=== PATIENT | male | born 1940 | race Caucasian/White ===

== ENCOUNTER → 2018-05-13 12:16 | Outpatient (CLI) | payer MEDICARE, SELFPAY ==
--- NOTE | 2018-05-13 12:30 | RAD_ITS ---
STUDY: X-RAY - ABDOMEN/PELVIS REASON FOR EXAM: Male, 77 years old. Diarrhea TECHNIQUE: AP supine and upright views of the abdomen and pelvis. COMPARISON: None. FINDINGS: Normal visualized lung bases. There is an unremarkable bowel gas pattern. There is no demonstrated free abdominal air. The visualized liver, spleen and kidneys are grossly normal in size and morphology. Normal soft tissue structures. Mild degenerative changes are seen within the spine. RAD/Abd Inc Decub and/or Erect IMPRESSION: Normal x-ray examination of the abdomen and pelvis. Electronically Signed: Gunnar Martinez DO at 12:30 EDT Tel , Service support ,
[2018-05-13 13:16] LABS: Absolute Lymphocyte Count 1.37 X10^3/ul (0.83-4.51); Absolute Neutrophil Count 2.9 X10^3/uL (2.0-7.7); Basophil# 0.08 X10^3/uL; Basophil% 1.6 % (0-1); Eosinophil# 0.25 X10^3/uL; Eosinophils% 4.9 % (0-5); Hematocrit 49.7 % (40-54); Hemoglobin 16.5 g/dl (13.0-16.5); Lymphocyte # 1.37 X10^3/ul (4.0); Mean Corp Hgb Conc 33.2 g/gl (32-36); Mean Corpuscular Hgb 31.3 pg (27.0-32.0); Mean Corpuscular Volume 94.1 fL (80-94); Mean Platelet Vol. 9.8 fl (6.2-12.0); Monocyte# 0.51 X10^3/uL; Neutrophil # 2.86 X10^3/uL (2.7-7.7); Neutrophil % 56.3 % (47-70); Platelet Count 201 K/mm3 (150-450); RBC Distribution Width CV 12.5 % (11.6-14.6); RBC Distribution Width SD 43.2 fl (35.1-43.9); Red Blood Count 5.28 M/mm3 (4.6-6.2); White Blood Count 5.1 K/mm3 (4.4-11.0)
[2018-05-13 13:18] LABS: POSITIVE COUNT NO; POSITIVE DIFFERENTIAL NO; POSITIVE MORPHOLOGY NO
[2018-05-13 13:40] LABS: Vitamin D,25 Hydroxy 26.4 ng/mL (29.95-100.01)
[2018-05-13 13:46] LABS: ALB/GLOB Ratio 0.9 RATIO (0.9-2.4); AST(SGOT) 50 U/L (15-37); Alanine Aminotransfer ALT/SGPT 20 U/L (16-61); Albumin, Serum 4.1 g/dL (3.2-5.0); Alkaline Phosphatase 94 U/L (45-117); Anion Gap 6 (5-15); BUN 12 mg/dL (7-18); BUN/Creat Ratio 10.8 RATIO (10-20); Calcium,Total 9.5 mg/dL (8.5-10.1); Chloride 104 mmol/L (98-107); Creatinine, Serum 1.11 mg/dL (0.70-1.30); EST Glomerular Filtration Rate 68 mL/min (>60); Est Glom Filt Rate - Afr Amer 82 mL/min (>60); Globulin 4.6 g/dL (2.2-4.2); Glucose 97 mg/dL (74-106); Potassium 4.3 mmol/L (3.5-5.1); Protein, Total 8.7 g/dL (6.4-8.2); Sodium Level 138 mmol/L (136-145); Thyroid Stim Hormone (TSH) 3.74 uIU/mL (0.358-3.74)
== END ==
PROVIDERS: Visit Provider Family Medicine Geriatric Medicine
DX: Z00.00 Encounter for general adult medical examination without abnormal findings (principal); E55.9 Vitamin D deficiency, unspecified; R19.7 Diarrhea, unspecified
CPT/HCPCS: 36415; 74019; 80053; 82306; 84443; 85025

== ENCOUNTER → 2018-05-14 08:46 | Outpatient (CLI) | payer MEDICARE, SELFPAY | PROVIDERS: Family Provider Family Medicine Geriatric Medicine; PCP Family Medicine Geriatric Medicine; Visit Provider Family Medicine Geriatric Medicine | DX: Z00.00 Encounter for general adult medical examination without abnormal findings (principal); R19.7 Diarrhea, unspecified; E55.9 Vitamin D deficiency, unspecified | CPT/HCPCS: 82274; 83630; 87177; 87209; 87493; 87506 ==

== ENCOUNTER → 2018-06-22 11:22 | Outpatient (CLI) | payer MEDICARE, SELFPAY ==
--- NOTE | 2018-06-22 11:54 | RAD_ITS ---
STUDY: X-RAY CHEST REASON FOR EXAM: Male, 78 years old. Shortness of breath TECHNIQUE: PA and lateral views of the chest. COMPARISON: None. FINDINGS: There is hyperinflation of the lungs consistent with chronic obstructive lung disease (COPD). Lungs are clear. There is no demonstrated pleural abnormality. Normal size heart. Normal mediastinum and aparna. Normal visualized pulmonary arteries. Normal visualized aortic arch and descending thoracic aorta. There are diffuse degenerative changes of the visualized thoracic spine. There is degenerative osteoarthritis of the bilateral shoulders. There is no demonstrated abnormality of the visualized soft tissue structures of the upper abdomen. RAD/Chest PA and Lateral IMPRESSION: COPD without acute findings. Electronically Signed: Hiren Dixon DO at 12:35 EDT Tel , Service support ,
[2018-06-22 12:45] LABS: Absolute Lymphocyte Count 1.53 X10^3/ul (0.83-4.51); Absolute Neutrophil Count 2.4 X10^3/uL (2.0-7.7); Basophil# 0.07 X10^3/uL; Basophil% 1.5 % (0-1); Eosinophil# 0.29 X10^3/uL; Eosinophils% 6.1 % (0-5); Hematocrit 47.1 % (40-54); Lymphocyte # 1.53 X10^3/ul (4.0); Lymphocyte % 32.1 % (19-41); Mean Corpuscular Hgb 31.5 pg (27.0-32.0); Mean Corpuscular Volume 92.7 fL (80-94); Mean Platelet Vol. 10.2 fl (6.2-12.0); Monocyte# 0.46 X10^3/uL; Monocyte% 9.7 % (0-10); Neutrophil % 50.4 % (47-70); Platelet Count 200 K/mm3 (150-450); RBC Distribution Width CV 12.3 % (11.6-14.6); RBC Distribution Width SD 41.2 fl (35.1-43.9); Red Blood Count 5.08 M/mm3 (4.6-6.2); White Blood Count 4.8 K/mm3 (4.4-11.0)
[2018-06-22 12:50] LABS: POSITIVE COUNT NO; POSITIVE DIFFERENTIAL NO; POSITIVE MORPHOLOGY NO
[2018-06-22 13:10] LABS: Anion Gap 7 (5-15); BNP,B-Type NATRIURETIC PEPTIDE 8.4 pg/mL (0-100); BUN 12 mg/dL (7-18); BUN/Creat Ratio 11.4 RATIO (10-20); CPK Total, Creatine Kinase 120 U/L (39-308); Calcium,Total 9.3 mg/dL (8.5-10.1); Chloride 103 mmol/L (98-107); Creatinine, Serum 1.05 mg/dL (0.70-1.30); EST Glomerular Filtration Rate 73 mL/min (>60); Est Glom Filt Rate - Afr Amer 88 mL/min (>60); Glucose 88 mg/dL (74-106); Potassium 3.6 mmol/L (3.5-5.1); Sodium Level 139 mmol/L (136-145)
[2018-06-22 13:25] LABS: D-Dimer Quantitative (DVT/PE) 0.73 FEU/ug/m (0.27-0.49)
[2018-06-23 13:53] LABS: Myoglobin, Serum 43 ng/mL (28-72)
== END ==
PROVIDERS: Family Provider Family Medicine Geriatric Medicine; PCP Family Medicine Geriatric Medicine; Visit Provider Family Medicine Geriatric Medicine
DX: R06.02 Shortness of breath (principal)
CPT/HCPCS: 36415; 71046; 80048; 82550; 83874; 83880; 84484; 85025; 85379

== ENCOUNTER → 2018-06-22 15:00 | Outpatient (CLI) | payer MEDICARE, SELFPAY ==
--- NOTE | 2018-06-22 15:08 | CT_ITS ---
STUDY: CTA CHEST REASON FOR EXAM: Male, 78 years old. Shortness of breath. RADIATION DOSAGE (If Supplied By Facility): CTDIvol = ( 14.54 ) mGy, DLP = ( 524.53 ) mGycm TECHNIQUE: The examination was performed with the intravenous administration of 100 ml of Isovue 300 contrast material. Post-processing of the angiographic images was performed, with multiplanar reformation and 3D reconstruction. Individualized dose optimization techniques were used for this CT. COMPARISON: Comparison is made with prior examination done earlier in the day. FINDINGS: Normal enhancement of the main pulmonary artery and right and left pulmonary arteries. Normal enhancement of the bilateral peripheral pulmonary arteries. There is no demonstrated pulmonary embolism. Normal thoracic aorta and visualized great vessels. There is no demonstrated aortic dissection. Normal heart and pericardium. Normal mediastinum. Normal hilar regions. Normal visualized trachea and bronchi. The lungs are well expanded. There are increased interstitial markings at the lung bases. This may represent either scarring and/or atelectasis. There is a 1.6 cm x 1.3 cm pleural-based nodular density in the right lower lobe as seen on axial image #66. This may represent a focal area of scarring. Follow-up is recommended. Normal pleura. Normal chest wall structures. There are degenerative changes of thoracic spine. Small gallstone in the gallbladder lumen. There are several hypodense nodules in the liver. These may represent small cysts. Correlation with ultrasound is recommended. CT/CTA Chest W/WO Contrast IMPRESSION: There is no evidence of pulmonary embolism. Increased markings at the lung bases suggestive of a atelectasis and/or scarring. Electronically Signed: Greg Medrano MD at 15:55 EDT Tel [phone], Service support ,
== END ==
PROVIDERS: Family Provider Family Medicine Geriatric Medicine; PCP Family Medicine Geriatric Medicine; Visit Provider Family Medicine Geriatric Medicine
DX: R06.02 Shortness of breath (principal); R74.8 Abnormal levels of other serum enzymes
CPT/HCPCS: 36415; 71046; 71275; 80048; 82550; 83874; 83880; 84484; 85025; 85379; Q9967

== ENCOUNTER → 2018-06-25 08:27 | Outpatient (CLI) | payer MEDICARE, SELFPAY ==
--- NOTE | 2018-06-25 08:33 | US_ITS ---
STUDY: ABDOMINAL ULTRASOUND - RIGHT UPPER QUADRANT REASON FOR VISIT: Male, 78 years old. Abdominal pain. Liver cyst. TECHNIQUE: Ultrasound evaluation of the right upper quadrant was performed with real-time and static sprague-scale imaging. TECHNICAL QUALITY: Examination limited by bowel gas. COMPARISON: CTA of the chest, June 22, 2018. FINDINGS: Liver: The liver measures 15.9 cm. There is normal echogenicity of the liver. The bile ducts are within normal limits. There is hepatic color flow. The direction of portal flow is hepatopetal. In the right lobe there is a 1.8 cm cyst. This correlates with the cyst seen in the lower right anterior lobe on CT. The other cysts are incompletely visualized. They're thought to be seen on image 30 of series 1. Gallbladder: Normal distended gallbladder. The gallbladder wall measures 3 mm. There is a negative sonographic Cervantes's sign. There is no pericholecystic fluid. The gallstones seen on CT is not appreciated sonographically and mid lung may in the gallbladder neck. There is a 5 mm polyp seen along the gallbladder wall. Common Bile Duct (C.B.D.): The common bile duct measures 6 mm. Pancreas: There is limited visualization of the pancreas. Portions of the neck and proximal tail are visualized. There is normal echogenicity of the pancreas. There is no demonstrated pancreatic mass or cyst. Right Kidney: Normal size of the right kidney. The right kidney measures 10.8 cm. Normal renal cortex. The right cortex measures 1.2 cm. There is no demonstrated renal mass or cyst. There is no right hydronephrosis. US/Abdomen Limited IMPRESSION: 1. Multiple hepatic cysts. These correlate with the larger cyst seen on CT. 2. Poor visualization of the gallstones seen on CT. There is a small gallbladder polyp noted. 3. Limited visualization of pancreas. Electronically Signed: Jesus Fontaine DO at 8:33 EDT Tel [phone], Service support ,
== END ==
PROVIDERS: Family Provider Family Medicine Geriatric Medicine; PCP Family Medicine Geriatric Medicine; Visit Provider Family Medicine Geriatric Medicine
DX: K76.89 Other specified diseases of liver (principal); K80.20 Calculus of gallbladder without cholecystitis without obstruction; R10.9 Unspecified abdominal pain
CPT/HCPCS: 76705

== ENCOUNTER → 2018-08-04 11:57 | Outpatient (CLI) | payer MEDICARE, SELFPAY | PROVIDERS: Family Provider Family Medicine Geriatric Medicine; PCP Family Medicine Geriatric Medicine; Referring Provider Family Medicine Geriatric Medicine; Visit Provider Family Medicine Geriatric Medicine | DX: R68.83 Chills (without fever) (principal); E86.0 Dehydration | CPT/HCPCS: 96360; 96361; 87633; J7030; A4216 ==

== ENCOUNTER → 2018-08-04 12:17 | Outpatient (CLI) | payer MEDICARE, SELFPAY ==
[2018-08-04 12:39] VITALS: BP 140/89; PULSE 69; RESP 16; TEMP 36.3; O2SAT 96; BMI 27.0
[2018-08-04] MEDS: 0.9% Normal Saline 1,000 ML 999 ML IV ×2 (12:56→14:00)
[2018-08-04 15:06] VITALS: BP 151/74; PULSE 72
== END ==
PROVIDERS: Family Provider Family Medicine Geriatric Medicine; PCP Family Medicine Geriatric Medicine; Visit Provider Family Medicine Geriatric Medicine
DX: E86.0 Dehydration (principal)
CPT/HCPCS: 96360; 96361; J7030; A4216

== ENCOUNTER 2018-08-08 15:10 | Inpatient (IN) | payer MEDICARE, SELFPAY ==
[2018-08-08 15:11] VITALS: BP 134/72; PULSE 71; RESP 18; TEMP 36.6; O2SAT 98; BMI 28.1
--- NOTE | 2018-08-08 16:15 | CT_ITS ---
STUDY: CT BRAIN WITHOUT CONTRAST REASON FOR EXAM: Male, 78 years old. Weakness. History of Parkinson's. RADIATION DOSAGE (If Supplied By Facility): CTDIvol = ( 44.99 ) mGy, DLP = ( 812.98 ) mGycm TECHNIQUE: Transaxial CT imaging of the brain was performed without administration of intravenous contrast material. Individualized dose optimization techniques were used for this CT. COMPARISON: 05/24/2012. FINDINGS: Normal soft tissue structures. Normal calvarium. There is mild cerebral atrophy with widening of the extra-axial spaces and ventricular dilatation. There are areas of decreased attenuation within the white matter tracts of the supratentorial brain, consistent with microvascular disease changes. Normal basal ganglia and thalami. Normal brainstem. Normal cerebellum. There is no intracranial hemorrhage. There are no findings of an acute ischemic infarction. Normal visualized paranasal sinuses. CT/Brain/Head without Contrast IMPRESSION: 1. No acute process. 2. Mild microvascular ischemic changes. Atrophy. Electronically Signed: Jo Pompa MD at 17:22 EST Tel , Service support ,
--- NOTE | 2018-08-08 16:16 | EKG12_ITS ---
Test Reason : GEN ILLNESS Blood Pressure : / mmHG Vent. Rate : 084 BPM Atrial Rate : 084 BPM P-R Int : 230 ms QRS Dur : 144 ms QT Int : 414 ms P-R-T Axes : 042 041 -05 degrees QTc Int : 489 ms Sinus rhythm with sinus arrhythmia with 1st degree A-V block Right bundle branch block Abnormal ECG Confirmed by CHEIKH WHITLOCK, ESSENCE ([id number]), medical transcription editor GARDENIA COTTON ([id number]) on 08/11/2018 3:36:56 PM Referred By: TAMELA Confirmed By:ESSENCE SALAMANCA MD
--- NOTE | 2018-08-08 16:42 | ED.RN ---
BRUISING TO RIGHT UPPER BODY LATERAL AND LARGE BRUISE TO BACK, PT REPORTED I FALL BACKWARDS AND GRAB MY HEAD, MY BUTT IS BRUISED TOO
[2018-08-08 16:43] VITALS: BP 135/72; BP 137/68; PULSE 79; PULSE 82
[2018-08-08 16:47] LABS: Absolute Lymphocyte Count 0.82 X10^3/ul (0.83-4.51); Absolute Neutrophil Count 2.8 X10^3/uL (2.0-7.7); Basophil# 0.05 X10^3/uL; Basophil% 1.2 % (0-1); Eosinophil# 0.09 X10^3/uL; Eosinophils% 2.2 % (0-5); Hematocrit 40.2 % (40-54); Hemoglobin 13.5 g/dl (13.0-16.5); Lymphocyte # 0.82 X10^3/ul (4.0); Lymphocyte % 19.9 % (19-41); Mean Corp Hgb Conc 33.6 g/gl (32-36); Mean Corpuscular Volume 92.2 fL (80-94); Mean Platelet Vol. 8.8 fl (6.2-12.0); Monocyte# 0.37 X10^3/uL; Neutrophil # 2.78 X10^3/uL (2.7-7.7); Neutrophil % 67.2 % (47-70); Platelet Count 296 K/mm3 (150-450); RBC Distribution Width CV 12.8 % (11.6-14.6); RBC Distribution Width SD 42.1 fl (35.1-43.9); Red Blood Count 4.36 M/mm3 (4.6-6.2); White Blood Count 4.1 K/mm3 (4.4-11.0)
[2018-08-08 16:58] LABS: POSITIVE COUNT NO; POSITIVE DIFFERENTIAL NO; POSITIVE MORPHOLOGY NO
--- NOTE | 2018-08-08 17:05 | RAD_ITS ---
STUDY: X-RAY CHEST REASON FOR EXAM: Male, 78 years old. Weakness. TECHNIQUE: PA and lateral views. COMPARISON: 06/22/2018. FINDINGS: The lungs are clear and expanded. There is no demonstrated pleural abnormality. Normal size heart. Normal mediastinum and aparna. Normal visualized pulmonary arteries. Normal visualized aortic arch and descending thoracic aorta. There are mild degenerative changes of the thoracic spine. Normal visualized ribs, clavicles, and shoulders. There is no demonstrated abnormality of the visualized soft tissue structures of the upper abdomen. RAD/Chest PA and Lateral IMPRESSION: No acute process. Electronically Signed: Jo Pompa MD at 17:26 EST Tel , Service support ,
[2018-08-08 17:08] LABS: ALB/GLOB Ratio 0.9 RATIO (0.9-2.4); AST(SGOT) 196 U/L (15-37); Alanine Aminotransfer ALT/SGPT 47 U/L (16-61); Albumin, Serum 3.2 g/dL (3.2-5.0); Alkaline Phosphatase 326 U/L (45-117); Anion Gap 9 (5-15); BUN 20 mg/dL (7-18); BUN/Creat Ratio 20.2 RATIO (10-20); Calcium,Total 8.2 mg/dL (8.5-10.1); Chloride 100 mmol/L (98-107); Creatinine, Serum 0.99 mg/dL (0.70-1.30); EST Glomerular Filtration Rate 78 mL/min (>60); Est Glom Filt Rate - Afr Amer 94 mL/min (>60); Estimated Creatinine Clearance 57.49 ml/min; Globulin 3.5 g/dL (2.2-4.2); Glucose 151 mg/dL (74-106); Potassium 3.6 mmol/L (3.5-5.1); Protein, Total 6.7 g/dL (6.4-8.2); Sodium Level 136 mmol/L (136-145)
[2018-08-08 17:31] VITALS: BP 142/84; PULSE 93; RESP 16; O2SAT 96
[2018-08-08 17:34] LABS: Bacteria 0 SEEN /hpf (None Seen); Mucous, Urine 0 SEEN /hpf (<or=2+); Red Blood Cells-Urine 0 SEEN /hpf (0-5); Squamous Epithelial Cells - UA 0 SEEN /hpf (0-5); White Blood Cells 0 SEEN /hpf (0-5)
[2018-08-08 18:04] LABS: Color, Urine Yellow (Yellow); Glucose, Dipstick Normal (Normal); Ketone-Dipstick 5 mg/dl (Negative); Leukocyte Esterase-Dipstick Negative /ul (Negative); Nitrite-Dipstick Negative (Negative); Occult Blood-Urine Negative /ul (Negative); Protein-Dipstick Negative (Negative); Specific Gravity, Urine 1.015 (1.002-1.030); Urine Bilirubin Dipstick Negative (Negative); Urine Clarity Clear (Clear); Urine Urobilinogen Normal (Normal)
--- NOTE | 2018-08-08 18:40 | RAD_ITS ---
STUDY: X-RAY - THORACIC SPINE REASON FOR EXAM: Male, 78 years old. Pain. TECHNIQUE: 3 view(s) of the thoracic spine were obtained. COMPARISON: None. FINDINGS: Normal kyphosis of the thoracic spine. There is no substantial scoliosis. Normal thoracic vertebrae and endplates. Normal disc space heights. There is mild thoracic spondylosis. The soft tissue structures are unremarkable. RAD/Thoracic Spine 3 Views IMPRESSION: 1. No acute process. Electronically Signed: Jo Pompa MD at 19:18 EST Tel , Service support ,
--- NOTE | 2018-08-08 18:40 | RAD_ITS ---
STUDY: X-RAY - LUMBAR SPINE REASON FOR EXAM: Male, 78 years old. Pain. TECHNIQUE: 3 view(s) of the lumbar spine were obtained. COMPARISON: None FINDINGS: There are 5 lumbar type vertebral bodies. Normal lumbar lordosis. There is no substantial scoliosis. There is a normal alignment of the vertebrae. Normal vertebral bodies and endplates. There is disc space narrowing at the L5-S1 level. Disc spaces are otherwise well-maintained. The soft tissue structures are unremarkable. RAD/Lumbar Spine 2 or 3 Views IMPRESSION: 1. No evidence of trauma. 2. Mild degenerative disc changes. Electronically Signed: Jo Pompa MD at 19:22 EST Tel , Service support ,
[2018-08-08] MEDS: Morphine 2 MG/ML Syringe IV (18:56)
[2018-08-08 19:14] VITALS: BP 130/64; PULSE 91; RESP 16; O2SAT 96
[2018-08-08 19:22] VITALS: BMI 26.2
--- NOTE | 2018-08-08 19:28 | HP.PCM_ITS ---
Problem List (1) Frequent falls Status: Acute (2) Elevated liver enzymes Status: Acute (3) Hyperglycemia Status: Acute (4) Parkinsons disease Status: Chronic History of Present Illness Date of Admission: 08/08/18 Chief Complaint: Generalized pain, recently increased frequent falls. The patient is a 78 y/o M w/ PMHx: Parkinson's disease who presents to the [facility] ED on 08/08/18 per recommendation of his PCP secondary to increased generalized weakness, difficulty ambulating secondary to BL knee as well as back discomfort secondary to his ongoing falls w/ notable diffuse ecchymoses w/ visit to his PCP most recently this past where he was administered IVFs in the office for concern of mild dehydration as well as cefdinir for possible sinusitis. Patient currently notes he has had only mild congestion with no facial tenderness, fevers or chills. He notes that he has had difficulty stopping his gait when he starts shuffling as well as having difficulty getting up resulting in his frequent falls. Work-up in the ED included T 98, heart rate 91, BP 130/64, respiratory rate 18, 98% on room air, CBC w/ WBC 4.1, Hgb 13.5, Plts 296, CMP w/ BUN/Cr 20/0.99, glucose 151, AST/ALT 196/47, Alk phos 326, trop < 0.015, UA not marked appearing, CT brain with no acute process with mild microvascular ischemic changes and atrophy, chest x-ray with no acute process, plain film thoracic spine with no acute process, plain film lumbar spine with chronic degenerative disc disease with no acute findings. In the ED patient administered morphine. Past Medical History Past Medical History (Chronic Problems): Chronic Problems Parkinsons disease (Chronic) Allergies No Known Allergies Allergy (Verified 08/08/18 15:13) Home Medications: Ambulatory Orders Medication Instructions Recorded Carbidopa/Levodopa 25/100 [Sinemet 2 tab PO TID 08/08/18 25/100] Cefdinir 300 mg PO BID 08/08/18 Menthol [Biofreeze] 1 applicatio TP PRN PRN 08/08/18 Surgical History: - - Left rotator cuff repair. Psychiatric History: No pertinent psych hx Lives: Spouse/ Significant Other Smoking Status: Never smoker Tobacco Use: Non-smoker Alcohol: None Drugs: None - *Family History Maternal History Items: - - Mother passed in her 90s, healthy without history of HD, DM or CA. Paternal History Items: Heart Disease - Father w/ history of HD/ME in his 60s. Review of Systems Constitutional: Reports: Weakness, Fatigue. Denies: Chills, Fever, Weight Change HEENT: Denies: Head Aches, Sinus Congestion, Sinus Drainage Cardiovascular: Denies: Chest Pain, Palpitations Respiratory: Denies: Cough, Shortness of breath at rest, Sputum production Gastrointestinal: Denies: Abdominal Pain, Nausea, Vomiting Genitourinary: Denies: Dysuria Musculoskeletal: Reports: Back Pain, Joint Pain, Joint Tenderness, Muscle pain Skin: Reports: Skin Changes. Denies: Rash, Wounds Neurological: Reports: Balance problems. Denies: Focal weakness, Numbness, Tingling Psychiatric: Denies: Anxiety, Depression, Homicidal Ideations, Suicidal Ideations Hematologic/ Lymphatic: Denies: Easy Bruising, Easy Bleeding VTE Information - Inpt Only VTE Present on Admission: No VTE Mechan Device Prophylaxis: SCD's VTE Pharm Prophylaxis ordered?: Yes Patient Problems: Active and Suspected Problems Frequent falls (Acute) Elevated liver enzymes (Acute) Hyperglycemia (Acute) Subjective: laying in the ED bed, NAD, notes body sore from falling so frequently. Objective: Physical Examination: General: awake, alert, oriented x 3 and cooperative, seated upright in the ED bed in no apparent distress. Skin: normal color, turgor, no icterus, cyanosis except various staged ecchymoses to the extremities and back as well as buttock regions. HEENT: AT/NC, EOMI, PERRLA, MMM, no carotid bruits or JVD noted. Lungs: CTA bilaterally, moderate effort, mild decrease BL bases, no rales, ronchi or wheezing. Heart: Regular rate and rhythm; no gallop, rub audible. Abdomen: soft, overweight, NTTP, ND, normal BS, no HSM. Extremities: no cyanosis, clubbing, or edema. Neurological: patient awake, alert, oriented x 3; cognitive function intact; pupils equally reactive to light and accomodation; cranial nerves II-XII grossly normal, moving all 4 extremities, no focal deficits, strength difficult to assess secondary to joint discomfort w/ recent increased falls but no focal deficits noted, strength moderately globally decreased, sensation intact. Psychiatric: affect appears normal, no acute evidence of depressive or anxiety feelings. - Physical Exam Vital Signs Temp Pulse Resp BP Pulse Ox 98 F 91 16 130/64 H 96 08/08/18 15:11 08/08/18 19:14 08/08/18 19:14 08/08/18 19:14 08/08/18 19:14 Oxygen Delivery Method Room Air Weight: 180 lb Body Mass Index (BMI) 28.1 Laboratory Tests Past 24 Hrs 08/08/18 08/08/18 08/08/18 16:10 16:10 17:25 WBC 4.1 L RBC 4.36 L Hgb 13.5 Hct 40.2 MCV 92.2 MCH 31.0 MCHC 33.6 RDW 12.8 RDW Differential 42.1 Plt Count 296 MPV 8.8 Immature Gran % (Auto) 0.500 Neut % (Auto) 67.2 Lymph % (Auto) 19.9 [place] % (Auto) 9.0 Eos % (Auto) 2.2 Baso % (Auto) 1.2 H Absolute Neuts (auto) 2.8 Absolute Lymphs (auto) 0.82 L Total Counted Not Reportable Sodium 136 Potassium 3.6 Chloride 100 Carbon Dioxide 27.0 Anion Gap 9 BUN 20 H Creatinine 0.99 Estim Creat Clear Calc 57.49 Est GFR (MDRD) Af Amer 94 Est GFR (MDRD) Non-Af 78 BUN/Creatinine Ratio 20.2 H Glucose 151 H Calcium 8.2 L Total Bilirubin 0.70 AST 196 H ALT 47 Alkaline Phosphatase 326 H Troponin I < 0.015 Total Protein 6.7 Albumin 3.2 Globulin 3.5 Albumin/Globulin Ratio 0.9 Urine Color Yellow Urine Clarity Clear Urine pH 6.0 Ur Specific [place] 1.015 Urine Protein Negative Urine Glucose (UA) Normal Urine Ketones 5 H Urine Occult Blood Negative Urine Nitrite Negative Urine Bilirubin Negative Urine Urobilinogen Normal Ur Leukocyte Esterase Negative Urine RBC 0 SEEN Urine WBC 0 SEEN Ur Squamous Epith Cells 0 SEEN Urine Bacteria 0 SEEN Urine Mucus 0 SEEN Assessment/Plan All Active Problems Frequent falls (Acute) Elevated liver enzymes (Acute) Hyperglycemia (Acute) The patient is a 78 y/o M w/ PMHx: Parkinson's disease who presents to the [facility] ED on 08/08/18 per recommendation of his PCP secondary to increased generalized weakness, difficulty ambulating secondary to severe generalized pain from falls including BL knee, back and buttock regions x 1 week. (1) Acute Intractable Pain, Back and BL Knees secondary to Recent Frequent Falls w/ Gait Instability: Plain films in the ED w/ no acute findings, degenerative changes but severely debilitating. Will admit to [facility], maintain on fall precautions, frequent positioning, po/IV pain regimen, scheduled toradol x 5 doses, flexeril PRN, anti-emetics, bowel regimen. Will consult PT and OT for evaluation and CM for discharge planning. If not improving may need to consider further imaging of the spine. Will request Neurology assessment as may need his Parkinson's disease medications altered secondary to recently increased falls. (2) Parkinson's Disease: Recently increased frequent falls, possibly leading to #1, will continue home regimen sinemet pending Neurology assessment, but from his descriptions concerns for changes needed to his parkinson's regimen, fall precautions, PT, OT, CM as noted. (3) Hyperglycemia: Admission glucose 151, HgBA1c pending. (4) Abnormal LFTs: Unclear etiology, admission AST/ALT 196/47, Alk phos 326, gently hydrating, repeat CMP in AM. (5) DVT Prophylaxis: SCDs, lovenox. (6) CODE status: FULL code. Daughter is HCPOA, living in [place], traveling to [place] currently, prior [facility] RN per family report. Code Visit OBSV E&M: 20027 Initial observation care L3
[2018-08-08 20:35] VITALS: BP 136/72; PULSE 70; RESP 20; TEMP 36.9; O2SAT 93
[2018-08-08 20:39] VITALS: BMI 27.3
[2018-08-08] MEDS: 0.9% Normal Saline 1,000 ML 100 ML IV (20:47)
[2018-08-08] MEDS: Ketorolac 15 MG/ML Vial IV (20:48)
[2018-08-08 20:53] VITALS: O2SAT 95
[2018-08-08 20:53] LABS: Magnesium 2.2 mg/dL (1.6-2.6)
[2018-08-08] MEDS: Morphine 4 MG/ML Syringe IV (21:51)
--- NOTE | 2018-08-08 23:17 | NURSING ---
PT TOOK GOWN OFF AND GETTING OUT OF BED WITH NO ASST. PT REFUSES TO WEAR SCD. MANAGER TALENT REPOSTION PT IN BED.
--- NOTE | 2018-08-08 23:46 | ED.VISSUMM ---
- ER Visit Summary Date of Service: 08/08/18 Chief Complaint: Weakness History of Present Illness: The patient is a 78 M who states that on he began to have multiple falls. He states he hurts all over particularly his knees. He states that whenever he goes to get up he simply falls particularly backwards. He notes the last was at his doctor's office get started on unknown antibiotic for sinus infection. Reportedly also received some fluids. He states the falls began later that day after going to his doctor's office. Denies any loss of consciousness. Denies any headache. He simply feels very weak and cannot walk. He states that this is a significant change off of his baseline. He is here with his sister. Physical Examination: Afebrile vital signs are stable Gen: Well-nourished well-developed Head: Normocephalic atraumatic Eyes: Perrl EOMI ENT: TMs clear no rhinorrhea moist mucous membranes Neck: Supple no lymphadenopathy no JVD nontender CVS: Regular rate rhythm no murmurs normal S1-S2 Respiratory: No distress clear to auscultation bilaterally chest nontender Abdomen: Soft nontender nondistended normal bowel sounds no masses Back: Bruising of the back and tenderness to palpation in the upper lumbar paraspinal region. Extremity: Nontender no edema Skin: Normal color no rash numerous contusions of extremities Neuro: alert orientated ?3 CN II-XII intact patient has a tremor. He is a 2 person assist up out of bed and falls back into the bed only one person is helping him. Psych: Normal affect normal mood Test Results: Basic labs were negative. Chest x-ray negative. X-rays of the lumbar and thoracic spine were negative for acute fracture. CT of the brain was negative. EKG sinus the right bundle branch block. Emergency Department Course and Treatment: Patient received morphine for pain. Plan is admission to the hospital. Impression: 1. Frequent falls 2. Multiple contusions 3. Parkinson's This note was generated with [employer] dictation software. It may contain incorrect words, spelling, and punctuation that were not noted in review of the chart prior to signing ED Disposition - Plan for ED Patient: Disposition: Acute Care [facility], [place] Chief Complaint: Weakness
--- NOTE | 2018-08-08 23:50 | ED.DCSUM_ITS ---
- ER Visit Summary Date of Service: 08/08/18 Chief Complaint: Weakness History of Present Illness: The patient is a 78 M who states that on he began to have multiple falls. He states he hurts all over particularly his knees. He states that whenever he goes to get up he simply falls particularly b ackwards. He notes the last was at his doctor's office get started on unknown antibiotic for sinus infection. Reportedly also received some fluids. He states the falls began later that day after going to his doctor's office. Denies any loss of consciousness. Denies any headache. He simply feels very weak and cannot walk. He states that this is a significant change off of his baseline. He is here with his sister. Physical Examination: Afebrile vital signs are stable Gen: Well-nourished well-developed Head: Normocephalic atraumatic Eyes: Perrl EOMI ENT: TMs clear no rhinorrhea moist mucous membranes Neck: Supple no lymphadenopathy no JVD nontender CVS: Regular rate rhythm no murmurs normal S1-S2 Respiratory: No distress clear to auscultation bilaterally chest nontender Abdomen: Soft nontender nondistended normal bowel sounds no masses Back: Bruising of the back and tenderness to palpation in the upper lumbar paraspinal region. Extremity: Nontender no edema Skin: Normal color no rash numerous contusions of extremities Neuro: alert orientated ?3 CN II-XII intact patient has a tremor. He is a 2 person assist up out of bed and falls back into the bed only one person is helping him. Psych: Normal affect normal mood Test Results: Basic labs were negative. Chest x-ray negative. X-rays of the lumbar and thoracic spine were negative for acute fracture. CT of the brain was negative. EKG sinus the right bundle branch block. Emergency Department Course and Treatment: Patient received morphine for pain. Plan is admission to the hospital. Impression: 1. Frequent falls 2. Multiple contusions 3. Parkinson's This note was generated with [employer] dictation software. It may contain incorrect words, spelling, and punctuation that were not noted in review of the chart prior to signing ED Disposition - Plan for ED Patient: Disposition: Acute Care Hospital [facility] Chief Complaint: Weakness
[2018-08-09] MEDS: oxyCODONE 5 MG Tablet PO ×2 (02:04→08:12)
[2018-08-09 02:08] VITALS: BP 146/79; PULSE 71; RESP 17; TEMP 36.7; O2SAT 95
--- NOTE | 2018-08-09 03:53 | NURSING ---
Pt setting off bed exit. pt legs hanging off bed. Pt ox1 to name only but reorients quickly. Pt all over the bed and very restless at this time.
--- NOTE | 2018-08-09 05:57 | NURSING ---
pt set bed exit off. pt legs hanging over bed. pt pulled up and repostion in bed. pt said he was going downtown to use bathroom..
[2018-08-09] MEDS: Ketorolac 15 MG/ML Vial IV ×3 (06:00→21:38)
[2018-08-09] MEDS: Carbidopa/Levodopa 25/100 Tablet PO ×3 (06:01→17:48)
[2018-08-09] MEDS: 0.9% Normal Saline 1,000 ML 100 ML IV ×2 (06:02→17:47)
[2018-08-09 07:38] LABS: Absolute Lymphocyte Count 0.76 X10^3/ul (0.83-4.51); Absolute Neutrophil Count 2.3 X10^3/uL (2.0-7.7); Basophil# 0.04 X10^3/uL; Basophil% 1.1 % (0-1); Eosinophil# 0.12 X10^3/uL; Eosinophils% 3.4 % (0-5); Hematocrit 39.8 % (40-54); Hemoglobin 13.1 g/dl (13.0-16.5); Lymphocyte # 0.76 X10^3/ul (4.0); Lymphocyte % 21.3 % (19-41); Mean Corp Hgb Conc 32.9 g/gl (32-36); Mean Corpuscular Hgb 30.3 pg (27.0-32.0); Mean Corpuscular Volume 92.1 fL (80-94); Mean Platelet Vol. 8.7 fl (6.2-12.0); Monocyte# 0.31 X10^3/uL; Monocyte% 8.7 % (0-10); Neutrophil # 2.33 X10^3/uL (2.7-7.7); Neutrophil % 65.2 % (47-70); POSITIVE COUNT NO; POSITIVE DIFFERENTIAL NO; POSITIVE MORPHOLOGY NO; Platelet Count 260 K/mm3 (150-450); RBC Distribution Width CV 12.9 % (11.6-14.6); RBC Distribution Width SD 43.5 fl (35.1-43.9); Red Blood Count 4.32 M/mm3 (4.6-6.2); White Blood Count 3.6 K/mm3 (4.4-11.0)
[2018-08-09 07:54] LABS: AST(SGOT) 167 U/L (15-37); Alanine Aminotransfer ALT/SGPT 60 U/L (16-61); Alkaline Phosphatase 281 U/L (45-117); Anion Gap 9 (5-15); BUN 16 mg/dL (7-18); BUN/Creat Ratio 19.3 RATIO (10-20); Chloride 103 mmol/L (98-107); Creatinine, Serum 0.83 mg/dL (0.70-1.30); EST Glomerular Filtration Rate 95 mL/min (>60); Est Glom Filt Rate - Afr Amer 115 mL/min (>60); Estimated Creatinine Clearance 68.58 ml/min; Globulin 3.1 g/dL (2.2-4.2); Glucose 98 mg/dL (74-106); Potassium 3.9 mmol/L (3.5-5.1); Protein, Total 6.1 g/dL (6.4-8.2); Sodium Level 137 mmol/L (136-145)
[2018-08-09 07:58] VITALS: BP 145/64; PULSE 72; RESP 18; TEMP 36.5; O2SAT 93
[2018-08-09 08:29] VITALS: O2SAT 93
[2018-08-09] MEDS: Enoxaparin 40 MG/0.4 ML Syringe SC (09:34)
--- NOTE | 2018-08-09 10:21 | PCM.PN.HOSP ---
Patient Problems: Active and Suspected Problems Frequent falls (Acute) Elevated liver enzymes (Acute) Hyperglycemia (Acute) Subjective: Patient seen and examined. He complained of pain all over from the fall mainly in his shoulders and his knees. He denied any fever or chills, any cough or chest pain, shortness of breath, no abdominal pain, any diarrhea or vomiting. Patient states he lives alone most of the time patient Lola Proctor comes around to help him out. He is able to give a history and answer questions but he does look a bit confused. Vitals/I&O's: Vital Signs Temp Pulse Resp BP Pulse Ox 97.7 F L 72 18 145/64 H 93 08/09/18 07:58 08/09/18 07:58 08/09/18 07:58 08/09/18 07:58 08/09/18 08:29 Oxygen Delivery Method Room Air Weight: 174 lb 13.225 oz Body Mass Index (BMI) 27.3 Intake and Output for Last 24 Hours 08/07/18 08/08/18 08/09/18 23:59 23:59 23:59 Intake Total 549 / 549 669 / 669 Output Total 250 / 250 750 / 750 Balance 299 / 299 -81 / -81 General: Alert, Cooperative, No apparent distress HEENT: Atraumatic, PERRLA, EOMI, Normocephalic Neck: Supple, No JVD, Negative Carotid Bruits, Negative Hepatojugular Reflux, No Nodes Lungs: Clear to auscultation, Normal air movement, No rhonchi, No wheeze, No rales Cardiovascular: Regular rate, Regular Rhythm, Normal S1, Normal S2, No murmurs Abdomen: Bowel Sounds Present, Soft, Non Tender, Non-Distended, No Hepato-splenomegaly Extremities: No clubbing, No cyanosis, No edema, Capillary Refill Less than 3 Seconds Skin: No rashes, No breakdown Musculoskeletal: No Tenderness to Palpation of Joints or Extremities Lymphatic: No Cervical, Supraclavicular, or Inguinal Adenopathy Neurological: Cranial nerves II-XII grossly intact, Neuro grossly intact, Motor Exam 5/5 strength throughout Psych/Mental Status: Normal Affect, Appropriate Laboratory Results 08/08/18 16:10: WBC 4.1 L, RBC 4.36 L, Hgb 13.5, Hct 40.2, MCV 92.2, MCH 31.0, MCHC 33.6, RDW 12.8, RDW Differential 42.1, Plt Count 296, MPV 8.8, Immature Gran % (Auto) 0.500, Neut % (Auto) 67.2, Lymph % (Auto) 19.9, [place] % (Auto) 9.0, Eos % (Auto) 2.2, Baso % (Auto) 1.2 H, Absolute Neuts (auto) 2.8, Absolute Lymphs (auto) 0.82 L, Total Counted Not Reportable 08/08/18 16:10: Sodium 136, Potassium 3.6, Chloride 100, Carbon Dioxide 27.0, Anion Gap 9, BUN 20 H, Creatinine 0.99, Estim Creat Clear Calc 57.49, Est GFR (MDRD) Af Amer 94, Est GFR (MDRD) Non-Af 78, BUN/Creatinine Ratio 20.2 H, Glucose 151 H, Calcium 8.2 L, Total Bilirubin 0.70, AST 196 H, ALT 47, Alkaline Phosphatase 326 H, Troponin I < 0.015, Total Protein 6.7, Albumin 3.2, Globulin 3.5, Albumin/Globulin Ratio 0.9 08/08/18 16:10: Magnesium 2.2 08/08/18 17:25: Urine Color Yellow, Urine Clarity Clear, Urine pH 6.0, Ur Specific [place] 1.015, Urine Protein Negative, Urine Glucose (UA) Normal, Urine Ketones 5 H, Urine Occult Blood Negative, Urine Nitrite Negative, Urine Bilirubin Negative, Urine Urobilinogen Normal, Ur Leukocyte Esterase Negative, Urine RBC 0 SEEN, Urine WBC 0 SEEN, Ur Squamous Epith Cells 0 SEEN, Urine Bacteria 0 SEEN, Urine Mucus 0 SEEN 08/09/18 07:04: WBC 3.6 L, RBC 4.32 L, Hgb 13.1, Hct 39.8 L, MCV 92.1, MCH 30.3, MCHC 32.9, RDW 12.9, RDW Differential 43.5, Plt Count 260, MPV 8.7, Immature Gran % (Auto) 0.300, Neut % (Auto) 65.2, Lymph % (Auto) 21.3, [place] % (Auto) 8.7, Eos % (Auto) 3.4, Baso % (Auto) 1.1 H, Absolute Neuts (auto) 2.3, Absolute Lymphs (auto) 0.76 L, Total Counted Not Reportable 08/09/18 07:04: Sodium 137, Potassium 3.9, Chloride 103, Carbon Dioxide 25.0, Anion Gap 9, BUN 16, Creatinine 0.83, Estim Creat Clear Calc 68.58, Est GFR (MDRD) Af Amer 115, Est GFR (MDRD) Non-Af 95, BUN/Creatinine Ratio 19.3, Glucose 98, Calcium 8.0 L, Total Bilirubin 0.70, AST 167 H, ALT 60, Alkaline Phosphatase 281 H, Total Protein 6.1 L, Albumin 3.0 L, Globulin 3.1, Albumin/Globulin Ratio 1.[address] 08/08/18 16:15 IMPRESSION: 1. No acute process. 2. Mild microvascular ischemic changes. Atrophy. Electronically Signed: Jo Pompa MD at 17:22 EST Tel , Service support , Chest X-Ray 08/08/18 17:05 IMPRESSION: No acute process. Electronically Signed: Jo Pompa MD at 17:26 EST Tel , Service support , Lumbar Spine X-Ray 08/08/18 18:40 IMPRESSION: 1. No evidence of trauma. 2. Mild degenerative disc changes. Electronically Signed: Jo Pompa MD at 19:22 EST Tel , Service support , Thoracic Spine X-Ray 08/08/18 18:40 IMPRESSION: 1. No acute process. Electronically Signed: Jo Pompa MD at 19:18 EST Tel , Service support , Current Medications Al Hydroxide/Mg Hydroxide (Mylanta Ii) 30 ml PO Q6H PRN PRN PRN Reason: Gastric burning Carbidopa/Levodopa (Sinemet) 2 tablet PO TIDAC PIPER Last Admin: 11/06/18 06:01 Dose: 2 tablet Cyclobenzaprine HCl (Flexeril) 5 mg PO BID PRN PRN Reason: muscle strain, sprain Enoxaparin Sodium (Lovenox) 40 mg SC DAILY@1000 PIPER Last Admin: 08/09/18 09:34 Dose: 40 mg Sodium Chloride () 1,000 mls @ 100 mls/hr IV .Q10H [facility] Last Admin: 08/09/18 06:02 Dose: 100 mls/hr Ketorolac Tromethamine (Toradol) 15 mg IV Q8 [facility] Stop: 08/10/18 06:01 Last Admin: 08/09/18 06:00 Dose: 15 mg Magnesium Hydroxide (Milk Of Magnesia) 30 ml PO DAILY PRN PRN PRN Reason: Constipation Morphine Sulfate () 2 - 4 mg IV Q4H PRN PRN PRN Reason: PAIN Morphine Sulfate () 2 - 4 mg IV Q4H PRN PRN PRN Reason: PAIN Last Admin: 08/08/18 21:51 Dose: 4 mg Ondansetron HCl (Zofran) 4 mg IV Q8H PRN PRN PRN Reason: NAUSEA Oxycodone HCl (Oxyir) 5 - 10 mg PO Q4H PRN PRN PRN Reason: SEVERE PAIN (6-10/10) Last Admin: 08/09/18 08:12 Dose: 5 mg Promethazine HCl (Phenergan) 12.5 mg IV Q6H PRN PRN PRN Reason: NAUSEA/VOMITING Sodium Chloride () 5 - 30 ml IV UD PRN PRN Reason: SALINE FLUSH Medical Necessity - Tobacco Use Smoking Status: Never smoker Tobacco Use: Non-smoker Assessment/Plan All Active Problems Frequent falls (Acute) Elevated liver enzymes (Acute) Hyperglycemia (Acute) 1. Acute intractable back pain due to mechanical falls Patient still complains of pain in his shoulders and his knees from the fall. X-rays in the ED were negative and only showed degenerative changes. PT OT on board. Patient counseled about the need for placement on account of him not being able to take care of himself at home and recurrent falls. patient ok with placement in acute rehab for intensive physical therapy. Case Management consulted. fall precautions 2. Parkinson's disease Likely cause of the recurrent falls as well. Neurology consulted. On Sinemet. PT OT on board. 3. Hyperglycemia: Resolved. A1c still pending. Blood sugar was 98 this morning. 4. Abnormal LFTs: Resolving. AST was 196 on admission has trended down to 167. Bilirubin and ALT are normal but ALP is 281 also trended down from 326 yesterday. Will monitor. DVT prophylaxis: lovenox Code status: full code Disposition: Will need placement. Code Visit OBSV E&M: 90597 Subsequent observation care L2
--- NOTE | 2018-08-09 10:28 | PN_ITS ---
Patient Problems: Active and Suspected Problems Frequent falls (Acute) Elevated liver enzymes (Acute) Hyperglycemia (Acute) Subjective: Patient seen and examined. He complained of pain all over from the fall mainly in his shoulders and his knees. He denied any fever or chills, any cough or chest pain, shortness of breath, no abdominal pain, any diarrhea or vomiting. Patient states he lives alone most of the time patient Lola Proctor comes around to help him out. He is able to give a history and answer questions but he does look a bit confused. Vitals/I&O's: Vital Signs Temp Pulse Resp BP Pulse Ox 97.7 F L 72 18 145/64 H 93 08/09/18 07:58 08/09/18 07:58 08/09/18 07:58 08/09/18 07:58 08/09/18 08:29 Oxygen Delivery Method Room Air Weight: 174 lb 13.225 oz Body Mass Index (BMI) 27.3 Intake and Output for Last 24 Hours 08/07/18 08/08/18 08/09/18 23:59 23:59 23:59 Intake Total 549 / 549 669 / 669 Output Total 250 / 250 750 / 750 Balance 299 / 299 -81 / -81 General: Alert, Cooperative, No apparent distress HEENT: Atraumatic, PERRLA, EOMI, Normocephalic Neck: Supple, No JVD, Negative Carotid Bruits, Negative Hepatojugular Reflux, No Nodes Lungs: Clear to auscultation, Normal air movement, No rhonchi, No wheeze, No rales Cardiovascular: Regular rate, Regular Rhythm, Normal S1, Normal S2, No murmurs Abdomen: Bowel Sounds Present, Soft, Non Tender, Non-Distended, No Hepato- splenomegaly Extremities: No clubbing, No cyanosis, No edema, Capillary Refill Less than 3 Seconds Skin: No rashes, No breakdown Musculoskeletal: No Tenderness to Palpation of Joints or Extremities Lymphatic: No Cervical, Supraclavicular, or Inguinal Adenopathy Neurological: Cranial nerves II-XII grossly intact, Neuro grossly intact, Motor Exam 5/5 strength throughout Psych/Mental Status: Normal Affect, Appropriate Laboratory Results 08/08/18 16:10: WBC 4.1 L, RBC 4.36 L, Hgb 13.5, Hct 40.2, MCV 92.2, MCH 31.0, MCHC 33.6, RDW 12.8, RDW Differential 42.1, Plt Count 296, MPV 8.8, Immature Gran % (Auto) 0.500, Neut % (Auto) 67.2, Lymph % (Auto) 19.9, [place] % (Auto) 9.0, Eos % (Auto) 2.2, Baso % (Auto) 1.2 H, Absolute Neuts (auto) 2.8, Absolute Lymphs (auto) 0.82 L, Total Counted Not Reportable 08/08/18 16:10: Sodium 136, Potassium 3.6, Chloride 100, Carbon Dioxide 27.0, Anion Gap 9, BUN 20 H, Creatinine 0.99, Estim Creat Clear Calc 57.49, Est GFR (MDRD) Af Amer 94, Est GFR (MDRD) Non-Af 78, BUN/Creatinine Ratio 20.2 H, Glucose 151 H, Calcium 8.2 L, Total Bilirubin 0.70, AST 196 H, ALT 47, Alkaline Phosphatase 326 H, Troponin I < 0.015, Total Protein 6.7, Albumin 3.2, Globulin 3.5, Albumin/Globulin Ratio 0.9 08/08/18 16:10: Magnesium 2.2 08/08/18 17:25: Urine Color Yellow, Urine Clarity Clear, Urine pH 6.0, Ur Specific [place] 1.015, Urine Protein Negative, Urine Glucose (UA) Normal, Urine Ketones 5 H, Urine Occult Blood Negative, Urine Nitrite Negative, Urine Bilirubin Negative, Urine Urobilinogen Normal, Ur Leukocyte Esterase Negative, Urine RBC 0 SEEN, Urine WBC 0 SEEN, Ur Squamous Epith Cells 0 SEEN, Urine Bacteria 0 SEEN, Urine Mucus 0 SEEN 08/09/18 07:04: WBC 3.6 L, RBC 4.32 L, Hgb 13.1, Hct 39.8 L, MCV 92.1, MCH 30.3, MCHC 32.9, RDW 12.9, RDW Differential 43.5, Plt Count 260, MPV 8.7, Immature Gran % (Auto) 0.300, Neut % (Auto) 65.2, Lymph % (Auto) 21.3, [place] % (Auto) 8.7, Eos % (Auto) 3.4, Baso % (Auto) 1.1 H, Absolute Neuts (auto) 2.3, Absolute Lymphs (auto) 0.76 L, Total Counted Not Reportable 08/09/18 07:04: Sodium 137, Potassium 3.9, Chloride 103, Carbon Dioxide 25.0, Anion Gap 9, BUN 16, Creatinine 0.83, Estim Creat Clear Calc 68.58, Est GFR (MDRD) Af Amer 115, Est GFR (MDRD) Non-Af 95, BUN/Creatinine Ratio 19.3, Glucose 98, Calcium 8.0 L, Total Bilirubin 0.70, AST 167 H, ALT 60, Alkaline Phosphatase 281 H, Total Protein 6.1 L, Albumin 3.0 L, Globulin 3.1, Albumin/Globulin Ratio 1.[address] 08/08/18 16:15 IMPRESSION: 1. No acute process. 2. Mild microvascular ischemic changes. Atrophy. Electronically Signed: Jo Pompa MD at 17:22 EST Tel , Service support , Chest X-Ray 08/08/18 17:05 IMPRESSION: No acute process. Electronically Signed: Jo Pompa MD at 17:26 EST Tel , Service support , Lumbar Spine X-Ray 08/08/18 18:40 IMPRESSION: 1. No evidence of trauma. 2. Mild degenerative disc changes. Electronically Signed: Jo Pompa MD at 19:22 EST Tel , Service support , Thoracic Spine X-Ray 08/08/18 18:40 IMPRESSION: 1. No acute process. Electronically Signed: Jo Pompa MD at 19:18 EST Tel , Service support , Current Medications Al Hydroxide/Mg Hydroxide (Mylanta Ii) 30 ml PO Q6H PRN PRN PRN Reason: Gastric burning Carbidopa/Levodopa (Sinemet) 2 tablet PO TIDAC PIPER Last Admin: 11/06/18 06:01 Dose: 2 tablet Cyclobenzaprine HCl (Flexeril) 5 mg PO BID PRN PRN Reason: muscle strain, sprain Enoxaparin Sodium (Lovenox) 40 mg SC DAILY@1000 PIPER Last Admin: 08/09/18 09:34 Dose: 40 mg Sodium Chloride () 1,000 mls @ 100 mls/hr IV .Q10H [facility] Last Admin: 08/09/18 06:02 Dose: 100 mls/hr Ketorolac Tromethamine (Toradol) 15 mg IV Q8 [facility] Stop: 08/10/18 06:01 Last Admin: 08/09/18 06:00 Dose: 15 mg Magnesium Hydroxide (Milk Of Magnesia) 30 ml PO DAILY PRN PRN PRN Reason: Constipation Morphine Sulfate () 2 - 4 mg IV Q4H PRN PRN PRN Reason: PAIN Morphine Sulfate () 2 - 4 mg IV Q4H PRN PRN PRN Reason: PAIN Last Admin: 08/08/18 21:51 Dose: 4 mg Ondansetron HCl (Zofran) 4 mg IV Q8H PRN PRN PRN Reason: NAUSEA Oxycodone HCl (Oxyir) 5 - 10 mg PO Q4H PRN PRN PRN Reason: SEVERE PAIN (6-10/10) Last Admin: 08/09/18 08:12 Dose: 5 mg Promethazine HCl (Phenergan) 12.5 mg IV Q6H PRN PRN PRN Reason: NAUSEA/VOMITING Sodium Chloride () 5 - 30 ml IV UD PRN PRN Reason: SALINE FLUSH Medical Necessity - Tobacco Use Smoking Status: Never smoker Tobacco Use: Non-smoker Assessment/Plan All Active Problems Frequent falls (Acute) Elevated liver enzymes (Acute) Hyperglycemia (Acute) 1. Acute intractable back pain due to mechanical falls * Patient still complains of pain in his shoulders and his knees from the fall. * X-rays in the ED were negative and only showed degenerative changes. * PT OT on board. Patient counseled about the need for placement on account of him not being able to take care of himself at home and recurrent falls. * patient ok with placement in acute rehab for intensive physical therapy. * Case Management consulted. * fall precautions * 2. Parkinson's disease * Likely cause of the recurrent falls as well. * Neurology consulted. On Sinemet. * PT OT on board. * 3. Hyperglycemia: * Resolved. A1c still pending. Blood sugar was 98 this morning. 4. Abnormal LFTs: * Resolving. * AST was 196 on admission has trended down to 167. * Bilirubin and ALT are normal but ALP is 281 also trended down from 326 yesterday. * Will monitor. DVT prophylaxis: lovenox Code status: full code Disposition: Will need placement. Code Visit OBSV E&M: 93158 Subsequent observation care L2
--- NOTE | 2018-08-09 10:35 | CASEMGMT ---
FARTUN GRAHAM Face to Face with patient for initial transition planning/care coordination assessment. FARTUN GRAHAM introduced self and role at [facility]. Patient lying in bed, alert and oriented. Patient willing to participate in assessment and is able to answer all questions appropriately. Care providers, pharmacy, and demographics verified. Patient wishes to discharge home but is willing to go to SNF if necessary. Patient gave permission for CM/SANKET to call and speak with daughter. Patient states he has no further needs or concerns at this time. SANKET Harvey updated on probable placement. PCP: Riley Specialists: None Preferred Pharmacy: [facility] Insurance: MMO [facility] Prescription Benefit: MMO [facility] Living Will/HPOA: None LNOK: Friend Cathy, Daughter lives in daughter Living Arrangements: Patient lives with friend in 1 story home, 2 steps to enter home. Transportation: Self/Friend DME/HHC: Patient has raised toilet seat, cane, walker. Patient has had on HHC in the past. Disposition Plan: Patient willing to go to SNF at discharge. Therapy notes reviewed and recommending SNF at discharge. Diana ELAINE, RN, CM
--- NOTE | 2018-08-09 11:40 | PCM.CONS.GEN ---
Reason for Consult Date of Consultation: 08/09/18 Reason for Consultation: FALLS, PD History of Present Illness: The patient is a 78 year old M presents with pain s/p fall in the bathtub. reports no pain prior, now back and knee pain. reports sees dr torres at [facility] for pd, last saw jul, no med changes. no other falls recently, reports last fall was about a year ago. otherwise normally functionally independent, drives.according to rn neonatal however this history is entirely innaccurate. per admit h&p:The patient is a 78 y/o M w/ PMHx: Parkinson's disease who presents to the [facility] ED on 08/08/18 per recommendation of his PCP secondary to increased generalized weakness, difficulty ambulating secondary to BL knee as well as back discomfort secondary to his ongoing falls w/ notable diffuse ecchymoses w/ visit to his PCP most recently this past where he was administered IVFs in the office for concern of mild dehydration as well as cefdinir for possible sinusitis. Patient currently notes he has had only mild congestion with no facial tenderness, fevers or chills. He notes that he has had difficulty stopping his gait when he starts shuffling as well as having difficulty getting up resulting in his frequent falls. Work-up in the ED included T 98, heart rate 91, BP 130/64, respiratory rate 18, 98% on room air, CBC w/ WBC 4.1, Hgb 13.5, Plts 296, CMP w/ BUN/Cr 20/0.99, glucose 151, AST/ALT 196/47, Alk phos 326, trop < 0.015, UA not marked appearing, CT brain with no acute process with mild microvascular ischemic changes and atrophy, chest x-ray with no acute process, plain film thoracic spine with no acute process, plain film lumbar spine with chronic degenerative disc disease with no acute findings. In the ED patient administered morphine. Past Medical History Past Medical History (Chronic Problems): Chronic Problems Parkinsons disease (Chronic) Allergies No Known Allergies Allergy (Verified 08/08/18 15:13) Home Medications: Ambulatory Orders Medication Instructions Recorded Carbidopa/Levodopa 25/100 [Sinemet 2 tab PO TID 08/08/18 25/100] Cefdinir 300 mg PO BID 08/08/18 Menthol [Biofreeze] 1 applicatio TP PRN PRN 08/08/18 Surgical History: - - Left rotator cuff repair. Psychiatric History: No pertinent psych hx Lives: Spouse/ Significant Other Smoking Status: Never smoker Tobacco Use: Non-smoker Alcohol: None Drugs: None - *Family History Maternal History Items: - - Mother passed in her 90s, healthy without history of HD, DM or CA. Paternal History Items: Heart Disease - Father w/ history of HD/SC in his 60s. Review of Systems Musculoskeletal: Reports: Back Pain, Joint Pain Patient Problems: Active and Suspected Problems Frequent falls (Acute) Elevated liver enzymes (Acute) Hyperglycemia (Acute) - Physical Exam Neurological: Cranial nerves II-XII grossly intact, Neuro grossly intact, Sensory exam intact to light touch and pain - decreased proprioception unable to stand/walk unassisted Psych/Mental Status: Normal Affect Vital Signs Temp Pulse Resp BP Pulse Ox 36.5 C L 72 18 145/64 H 93 08/09/18 07:58 08/09/18 07:58 08/09/18 07:58 08/09/18 07:58 08/09/18 08:29 Oxygen Delivery Method Room Air Weight: 79.3 kg Body Mass Index (BMI) 27.3 Intake and Output for Last 24 Hours 08/07/18 08/08/18 08/09/18 23:59 23:59 23:59 Intake Total 549 / 549 1645 / 1645 Output Total 250 / 250 750 / 750 Balance 299 / 299 895 / 895 Laboratory Tests Past 24 Hrs 08/08/18 08/08/18 08/08/18 16:10 16:10 16:10 WBC 4.1 L RBC 4.36 L Hgb 13.5 Hct 40.2 MCV 92.2 MCH 31.0 MCHC 33.6 RDW 12.8 RDW Differential 42.1 Plt Count 296 MPV 8.8 Immature Gran % (Auto) 0.500 Neut % (Auto) 67.2 Lymph % (Auto) 19.9 [place] % (Auto) 9.0 Eos % (Auto) 2.2 Baso % (Auto) 1.2 H Absolute Neuts (auto) 2.8 Absolute Lymphs (auto) 0.82 L Total Counted Not Reportable Sodium 136 Potassium 3.6 Chloride 100 Carbon Dioxide 27.0 Anion Gap 9 BUN 20 H Creatinine 0.99 Estim Creat Clear Calc 57.49 Est GFR (MDRD) Af Amer 94 Est GFR (MDRD) Non-Af 78 BUN/Creatinine Ratio 20.2 H Glucose 151 H Calcium 8.2 L Magnesium 2.2 Total Bilirubin 0.70 AST 196 H ALT 47 Alkaline Phosphatase 326 H Troponin I < 0.015 Total Protein 6.7 Albumin 3.2 Globulin 3.5 Albumin/Globulin Ratio 0.9 Urine Color Urine Clarity Urine pH Ur Specific [place] Urine Protein Urine Glucose (UA) Urine Ketones Urine Occult Blood Urine Nitrite Urine Bilirubin Urine Urobilinogen Ur Leukocyte Esterase Urine RBC Urine WBC Ur Squamous Epith Cells Urine Bacteria Urine Mucus 08/08/18 08/09/18 08/09/18 17:25 07:04 07:04 WBC 3.6 L RBC 4.32 L Hgb 13.1 Hct 39.8 L MCV 92.1 MCH 30.3 MCHC 32.9 RDW 12.9 RDW Differential 43.5 Plt Count 260 MPV 8.7 Immature Gran % (Auto) 0.300 Neut % (Auto) 65.2 Lymph % (Auto) 21.3 [place] % (Auto) 8.7 Eos % (Auto) 3.4 Baso % (Auto) 1.1 H Absolute Neuts (auto) 2.3 Absolute Lymphs (auto) 0.76 L Total Counted Not Reportable Sodium 137 Potassium 3.9 Chloride 103 Carbon Dioxide 25.0 Anion Gap 9 BUN 16 Creatinine 0.83 Estim Creat Clear Calc 68.58 Est GFR (MDRD) Af Amer 115 Est GFR (MDRD) Non-Af 95 BUN/Creatinine Ratio 19.3 Glucose 98 Calcium 8.0 L Magnesium Total Bilirubin 0.70 AST 167 H ALT 60 Alkaline Phosphatase 281 H Troponin I Total Protein 6.1 L Albumin 3.0 L Globulin 3.1 Albumin/Globulin Ratio 1.0 Urine Color Yellow Urine Clarity Clear Urine pH 6.0 Ur Specific [place] 1.015 Urine Protein Negative Urine Glucose (UA) Normal Urine Ketones 5 H Urine Occult Blood Negative Urine Nitrite Negative Urine Bilirubin Negative Urine Urobilinogen Normal Ur Leukocyte Esterase Negative Urine RBC 0 SEEN Urine WBC 0 SEEN Ur Squamous Epith Cells 0 SEEN Urine Bacteria 0 SEEN Urine Mucus 0 SEEN Assessment/Plan All Active Problems Frequent falls (Acute) Elevated liver enzymes (Acute) Hyperglycemia (Acute) PD, mechanical fall, back pain now 0/10, no evidence of supervisor cook room/pns injury, however history unclear. his caregiver is with him however she is unable to tell me his adls with accuracy. exam shows nonspecific weakness and proprioceptive loss, i suspect he has chronic debility multifactorial, however given his recent fall and unclear history furhter evaluation with mri of l/s spine is recommended as well as pt/ot
--- NOTE | 2018-08-09 11:44 | CON.PCM_ITS ---
Reason for Consult Date of Consultation: 08/09/18 Reason for Consultation: FALLS, PD History of Present Illness: The patient is a 78 year old M presents with pain s/p fall in the bathtub. reports no pain prior, now back and knee pain. reports sees dr torres at [facility] for pd, last saw jul, no med changes. no other falls recently, reports last fall was about a year ago. otherwise normally functionally independent, drives.according to music internship however this history is entirely innaccurate. per admit h&p:The patient is a 78 y/o M w/ PMHx: Parkinson's disease who presents to the [facility] ED on 08/08/18 per recommendation of his PCP secondary to increased generalized weakness, difficulty ambulating secondary to BL knee as well as back discomfort secondary to his ongoing falls w/ notable diffuse ecchymoses w/ visit to his PCP most recently this past where he was ad ministered IVFs in the office for concern of mild dehydration as well as cefdinir for possible sinusitis. Patient currently notes he has had only mild congestion with no facial tenderness, fevers or chills. He notes that he has had difficulty stopping his gait when he starts shuffling as well as having difficulty getting up resulting in his frequent falls. Work-up in the ED included T 98, heart rate 91, BP 130/64, respiratory rate 18, 98% on room air, CBC w/ WBC 4.1, Hgb 13.5, Plts 296, CMP w/ BUN/Cr 20/0.99, glucose 151, AST/ALT 196/47, Alk phos 326, trop < 0.015, UA not marked appearing, CT brain with no acute process with mild microvascular ischemic changes and atrophy, chest x-ray with no acute process, plain film thoracic spine with no acute process, plain film lumbar spine with chronic degenerative disc disease with no acute findings. In the ED patient administered morphine. Past Medical History Past Medical History (Chronic Problems): Chronic Problems Parkinsons disease (Chronic) Allergies No Known Allergies Allergy (Verified 08/08/18 15:13) Home Medications: Ambulatory Orders Medication Instructions Recorded Carbidopa/Levodopa 25/100 [Sinemet 2 tab PO TID 08/08/18 25/100] Cefdinir 300 mg PO BID 08/08/18 Menthol [Biofreeze] 1 applicatio TP PRN PRN 08/08/18 Surgical History: - - Left rotator cuff repair. Psychiatric History: No pertinent psych hx Lives: Spouse/ Significant Other Smoking Status: Never smoker Tobacco Use: Non-smoker Alcohol: None Drugs: None - *Family History Maternal History Items: - - Mother passed in her 90s, healthy without history of HD, DM or CA. Paternal History Items: Heart Disease - Father w/ history of HD/IL in his 60s. Review of Systems Musculoskeletal: Reports: Back Pain, Joint Pain Patient Problems: Active and Suspected Problems Frequent falls (Acute) Elevated liver enzymes (Acute) Hyperglycemia (Acute) - Physical Exam Neurological: Cranial nerves II-XII grossly intact, Neuro grossly intact, Sensory exam intact to light touch and pain - decreased proprioception unable to stand/walk unassisted Psych/Mental Status: Normal Affect Vital Signs Temp Pulse Resp BP Pulse Ox 36.5 C L 72 18 145/64 H 93 08/09/18 07:58 08/09/18 07:58 08/09/18 07:58 08/09/18 07:58 08/09/18 08:29 Oxygen Delivery Method Room Air Weight: 79.3 kg Body Mass Index (BMI) 27.3 Intake and Output for Last 24 Hours 08/07/18 08/08/18 08/09/18 23:59 23:59 23:59 Intake Total 549 / 549 1645 / 1645 Output Total 250 / 250 750 / 750 Balance 299 / 299 895 / 895 Laboratory Tests Past 24 Hrs 08/08/18 08/08/18 08/08/18 16:10 16:10 16:10 WBC 4.1 L RBC 4.36 L Hgb 13.5 Hct 40.2 MCV 92.2 MCH 31.0 MCHC 33.6 RDW 12.8 RDW Differential 42.1 Plt Count 296 MPV 8.8 Immature Gran % (Auto) 0.500 Neut % (Auto) 67.2 Lymph % (Auto) 19.9 [place] % (Auto) 9.0 Eos % (Auto) 2.2 Baso % (Auto) 1.2 H Absolute Neuts (auto) 2.8 Absolute Lymphs (auto) 0.82 L Total Counted Not Reportable Sodium 136 Potassium 3.6 Chloride 100 Carbon Dioxide 27.0 Anion Gap 9 BUN 20 H Creatinine 0.99 Estim Creat Clear Calc 57.49 Est GFR (MDRD) Af Amer 94 Est GFR (MDRD) Non-Af 78 BUN/Creatinine Ratio 20.2 H Glucose 151 H Calcium 8.2 L Magnesium 2.2 Total Bilirubin 0.70 AST 196 H ALT 47 Alkaline Phosphatase 326 H Troponin I < 0.015 Total Protein 6.7 Albumin 3.2 Globulin 3.5 Albumin/Globulin Ratio 0.9 Urine Color Urine Clarity Urine pH Ur Specific [place] Urine Protein Urine Glucose (UA) Urine Ketones Urine Occult Blood Urine Nitrite Urine Bilirubin Urine Urobilinogen Ur Leukocyte Esterase Urine RBC Urine WBC Ur Squamous Epith Cells Urine Bacteria Urine Mucus 08/08/18 08/09/18 08/09/18 17:25 07:04 07:04 WBC 3.6 L RBC 4.32 L Hgb 13.1 Hct 39.8 L MCV 92.1 MCH 30.3 MCHC 32.9 RDW 12.9 RDW Differential 43.5 Plt Count 260 MPV 8.7 Immature Gran % (Auto) 0.300 Neut % (Auto) 65.2 Lymph % (Auto) 21.3 [place] % (Auto) 8.7 Eos % (Auto) 3.4 Baso % (Auto) 1.1 H Absolute Neuts (auto) 2.3 Absolute Lymphs (auto) 0.76 L Total Counted Not Reportable Sodium 137 Potassium 3.9 Chloride 103 Carbon Dioxide 25.0 Anion Gap 9 BUN 16 Creatinine 0.83 Estim Creat Clear Calc 68.58 Est GFR (MDRD) Af Amer 115 Est GFR (MDRD) Non-Af 95 BUN/Creatinine Ratio 19.3 Glucose 98 Calcium 8.0 L Magnesium Total Bilirubin 0.70 AST 167 H ALT 60 Alkaline Phosphatase 281 H Troponin I Total Protein 6.1 L Albumin 3.0 L Globulin 3.1 Albumin/Globulin Ratio 1.0 Urine Color Yellow Urine Clarity Clear Urine pH 6.0 Ur Specific [place] 1.015 Urine Protein Negative Urine Glucose (UA) Normal Urine Ketones 5 H Urine Occult Blood Negative Urine Nitrite Negative Urine Bilirubin Negative Urine Urobilinogen Normal Ur Leukocyte Esterase Negative Urine RBC 0 SEEN Urine WBC 0 SEEN Ur Squamous Epith Cells 0 SEEN Urine Bacteria 0 SEEN Urine Mucus 0 SEEN Assessment/Plan All Active Problems Frequent falls (Acute) Elevated liver enzymes (Acute) Hyperglycemia (Acute) PD, mechanical fall, back pain now 0/10, no evidence of food checkers and cashiers supervisor/pns injury, however history unclear. his caregiver is with him however she is unable to tell me his adls with accuracy. exam shows nonspecific weakness and proprioceptive loss, i suspect he has chronic debility multifactorial, however given his recent fall a nd unclear history furhter evaluation with mri of l/s spine is recommended as well as pt/ot
--- NOTE | 2018-08-09 12:02 | MRI_ITS ---
STUDY: MRI LUMBAR SPINE WITHOUT CONTRAST REASON FOR EXAM: Male, 78 years old. Leg weakness, difficulty ambulating. TECHNIQUE: Standardized fat and water weighted pulse sequences were obtained in the sagittal and axial planes. COMPARISON: None FINDINGS: T12-L1: Normal endplates. Disc dehydration. Normal bilateral facet joints. Normal central canal and bilateral lateral recesses. Normal bilateral intervertebral neural foramina. Normal lumbar lordosis. There is no substantial scoliosis. Normal conus medullaris that terminates at the L1 level. L1-2: Normal endplates. Disc dehydration. Normal bilateral facet joints. Normal central canal and bilateral lateral recesses. Normal bilateral intervertebral neural foramina. L2-3: Normal endplates. Disc dehydration. Normal bilateral facet joints. Normal central canal and bilateral lateral recesses. Normal bilateral intervertebral neural foramina. L3-4: Normal endplates. Disc dehydration. Normal bilateral facet joints. Normal central canal and bilateral lateral recesses. Normal bilateral intervertebral neural foramina. L4-5: Normal endplates. Disc dehydration. There is a small, central, noncompressive disc protrusion. Normal bilateral facet joints. Normal central canal and bilateral lateral recesses. Normal bilateral intervertebral neural foramina. L5-S1: Normal endplates. Disc dehydration. There is a mild, noncompressive spondylotic bar. Normal bilateral facet joints. Normal central canal and bilateral lateral recesses. Normal bilateral intervertebral neural foramina. Normal visualized sacral ala. Normal visualized paraspinous soft tissue structures. MRI/Spine Lumbar (Routine) IMPRESSION: 1. No trauma or spinal stenosis. 2. Noncompressive L4-5 disc protrusion. Electronically Signed: Jo Pompa MD at 16:41 EST Tel , Service support ,
--- NOTE | 2018-08-09 13:29 | CPS ---
started by nursing
[2018-08-09 14:29] VITALS: BP 149/76; PULSE 67; RESP 18; TEMP 36.7; O2SAT 97
[2018-08-09] MEDS: 0.9% NaCl Peripheral Flush Adult/Peds IV ×2 (14:32→21:38)
--- NOTE | 2018-08-09 14:55 | CASEMGMT ---
Social Work Note SW received referral for SNF. SW in to speak with pt and pt's significant other Cathy present in room. Pt gave this worker permission to speak to him in front of his guest. SW explained that right now the recommendation is for short term rehabilitation at SNF to gain strength before returning home. Pt and Cathy unsure which facility they would like. Cathy mentioned that here at the hospital would be a good idea. SW explained that this worker will have to check on bed availability and explained that pt will need pre-cert. Pt and Cathy state understanding. SANKET spoke with Rayne in TCU who states she doesn't have any beds and aren't expecting any discharges the rest of the week. SW attempted to speak with pt and Cathy regarding SNF but pt soundly sleeping and Cathy not present in room. Per previous notes, pt gave permission for staff to call his daughter. SW placed a call to pt's daughter Jacqui. Per Jacqui she is on her way to [facility] from [place] and is currently in [place]. Jacqui unsure at this time about SNF. SANKET informed Jacqui that this worker can leave list of in network facilities for her in pt's room and she can review list with pt. Jacqui states understanding. SANKET provided pt with list of in network facilities and Medicare ratings for SNF. Plan: SNF pending acceptance and pre-cert Diana Amador MEDICAL SECRETARY TEACHER, STONE BANKER
--- NOTE | 2018-08-09 15:56 | CHAPLAIN ---
patient was sleeping at first attempt; pt is out of room at second attempt to visit
[2018-08-09] MEDS: Magnesium Hydroxide 30 ML UDC PO (17:48)
[2018-08-09 20:15] VITALS: BP 123/74; PULSE 70; RESP 16; TEMP 36.7; O2SAT 95
[2018-08-10 02:39] VITALS: BP 133/72; PULSE 71; RESP 18; TEMP 36.7; O2SAT 95
[2018-08-10] MEDS: 0.9% Normal Saline 1,000 ML 100 ML IV ×2 (03:51→13:49)
[2018-08-10] MEDS: Ketorolac 15 MG/ML Vial IV (05:23)
[2018-08-10] MEDS: 0.9% NaCl Peripheral Flush Adult/Peds IV (05:23)
[2018-08-10] MEDS: Carbidopa/Levodopa 25/100 Tablet PO ×3 (06:30→16:17)
[2018-08-10 06:31] LABS: Absolute Neutrophil Count 2.3 X10^3/uL (2.0-7.7); Basophil# 0.06 X10^3/uL; Basophil% 1.6 % (0-1); Eosinophils% 2.7 % (0-5); Hematocrit 38.9 % (40-54); Lymphocyte % 21.7 % (19-41); Mean Corp Hgb Conc 33.4 g/gl (32-36); Mean Corpuscular Volume 92.6 fL (80-94); Mean Platelet Vol. 8.6 fl (6.2-12.0); Monocyte# 0.43 X10^3/uL; Monocyte% 11.7 % (0-10); Neutrophil # 2.27 X10^3/uL (2.7-7.7); Neutrophil % 61.8 % (47-70); Platelet Count 323 K/mm3 (150-450); RBC Distribution Width CV 12.7 % (11.6-14.6); White Blood Count 3.7 K/mm3 (4.4-11.0)
[2018-08-10 06:38] LABS: POSITIVE COUNT NO; POSITIVE DIFFERENTIAL NO; POSITIVE MORPHOLOGY NO
[2018-08-10 06:44] LABS: Anion Gap 8 (5-15); BUN 17 mg/dL (7-18); BUN/Creat Ratio 21.4 RATIO (10-20); Chloride 105 mmol/L (98-107); Creatinine, Serum 0.79 mg/dL (0.70-1.30); EST Glomerular Filtration Rate 100 mL/min (>60); Est Glom Filt Rate - Afr Amer 121 mL/min (>60); Estimated Creatinine Clearance 56.92 ml/min; Glucose 95 mg/dL (74-106); Sodium Level 137 mmol/L (136-145)
[2018-08-10 07:28] VITALS: O2SAT 93
[2018-08-10 08:27] VITALS: BP 164/79; PULSE 66; RESP 18; TEMP 36.4; O2SAT 96
[2018-08-10] MEDS: oxyCODONE 5 MG Tablet PO ×2 (08:32→22:14)
[2018-08-10] MEDS: Enoxaparin 40 MG/0.4 ML Syringe SC (08:33)
--- NOTE | 2018-08-10 10:45 | NURSING ---
PT C/O BACK ITCHING - RED RASH ALL OVER BACK. TEXT SENT TO DR KEBEDE REGARDING SAME.
--- NOTE | 2018-08-10 10:54 | PCM.PN.HOSP ---
Patient Problems: Active and Suspected Problems Frequent falls (Acute) Elevated liver enzymes (Acute) Hyperglycemia (Acute) Subjective: Patient seen and examined. He still complains of back pain, shoulder pain and knee pain from his fall. Otherwise he has no complaints and had a good night sleep. He denied any fever or chills, any cough or chest pain, shortness of breath, abdominal pain, any diarrhea vomiting. He is awaiting placement. Vitals/I&O's: Vital Signs Temp Pulse Resp BP Pulse Ox 97.5 F L 66 18 164/79 H 96 08/10/18 08:27 08/10/18 08:27 08/10/18 08:27 08/10/18 08:27 08/10/18 08:27 Oxygen Delivery Method Room Air Weight: 174 lb 13.225 oz Body Mass Index (BMI) 27.3 Intake and Output for Last 24 Hours 08/08/18 08/09/18 08/10/18 23:59 23:59 23:59 Intake Total 549 / 549 2677 / 2677 2170 / 2170 Output Total 250 / 250 2075 / 2075 1300 / 1300 Balance 299 / 299 602 / 602 870 / 870 General: Alert, Oriented x3, Cooperative, No apparent distress HEENT: Atraumatic, PERRLA, EOMI, Normocephalic Oral: Moist Mucosa Neck: Supple, No JVD, Negative Carotid Bruits Lungs: Clear to auscultation, Normal air movement, No rhonchi, No wheeze, No rales Cardiovascular: Regular rate, Regular Rhythm, Normal S1, Normal S2, No murmurs Abdomen: Bowel Sounds Present, Soft, Non Tender, Non-Distended, No Hepato-splenomegaly Extremities: No clubbing, No cyanosis, No edema, Capillary Refill Less than 3 Seconds Skin: No rashes, No breakdown Musculoskeletal: No Tenderness to Palpation of Joints or Extremities Lymphatic: No Cervical, Supraclavicular, or Inguinal Adenopathy Neurological: Cranial nerves II-XII grossly intact Psych/Mental Status: Normal Affect, Appropriate, Alert and oriented to time, place, person, mood and affect Laboratory Results 08/10/18 05:56: WBC 3.7 L, RBC 4.20 L, Hgb 13.0, Hct 38.9 L, MCV 92.6, MCH 31.0, MCHC 33.4, RDW 12.7, RDW Differential 42.0, Plt Count 323, MPV 8.6, Immature Gran % (Auto) 0.500, Neut % (Auto) 61.8, Lymph % (Auto) 21.7, [place] % (Auto) 11.7 H, Eos % (Auto) 2.7, Baso % (Auto) 1.6 H, Absolute Neuts (auto) 2.3, Absolute Lymphs (auto) 0.80 L, Total Counted Not Reportable 08/10/18 05:56: Sodium 137, Potassium 4.0, Chloride 105, Carbon Dioxide 24.0, Anion Gap 8, BUN 17, Creatinine 0.79, Estim Creat Clear Calc 56.92, Est GFR (MDRD) Af Amer 121, Est GFR (MDRD) Non-Af 100, BUN/Creatinine Ratio 21.4 H, Glucose 95, Calcium 8.0 L Diagnostic Data Brain CT 08/08/18 16:15 IMPRESSION: 1. No acute process. 2. Mild microvascular ischemic changes. Atrophy. Electronically Signed: Jo Pompa MD at 17:22 EST Tel , Service support , Chest X-Ray 08/08/18 17:05 IMPRESSION: No acute process. Electronically Signed: Jo Pompa MD at 17:26 EST Tel , Service support , Lumbar Spine X-Ray 08/08/18 18:40 IMPRESSION: 1. No evidence of trauma. 2. Mild degenerative disc changes. Electronically Signed: Jo Pompa MD at 19:22 EST Tel , Service support , Thoracic Spine X-Ray 08/08/18 18:40 IMPRESSION: 1. No acute process. Electronically Signed: Jo Pompa MD at 19:18 EST Tel , Service support , Lumbar Spine MRI 08/09/18 12:02 IMPRESSION: 1. No trauma or spinal stenosis. 2. Noncompressive L4-5 disc protrusion. Electronically Signed: Jo Pompa MD at 16:41 EST Tel , Service support , Current Medications Al Hydroxide/Mg Hydroxide (Mylanta Ii) 30 ml PO Q6H PRN PRN PRN Reason: Gastric burning Carbidopa/Levodopa (Sinemet) 2 tablet PO TIDAC PIPER Last Admin: 08/10/18 06:30 Dose: 2 tablet Cyclobenzaprine HCl (Flexeril) 5 mg PO BID PRN PRN Reason: muscle strain, sprain Last Admin: 08/10/18 08:31 Dose: 5 mg Enoxaparin Sodium (Lovenox) 40 mg SC DAILY@1000 PIPER Last Admin: 08/10/18 08:33 Dose: 40 mg Sodium Chloride () 1,000 mls @ 100 mls/hr IV .Q10H PIPER Last Admin: 08/10/18 03:51 Dose: 100 mls/hr Magnesium Hydroxide (Milk Of Magnesia) 30 ml PO DAILY PRN PRN PRN Reason: Constipation Last Admin: 08/09/18 17:48 Dose: 30 ml Morphine Sulfate () 2 - 4 mg IV Q4H PRN PRN PRN Reason: PAIN Morphine Sulfate () 2 - 4 mg IV Q4H PRN PRN PRN Reason: PAIN Last Admin: 08/08/18 21:51 Dose: 4 mg Ondansetron HCl (Zofran) 4 mg IV Q8H PRN PRN PRN Reason: NAUSEA Oxycodone HCl (Oxyir) 5 - 10 mg PO Q4H PRN PRN PRN Reason: SEVERE PAIN (6-10/10) Last Admin: 08/10/18 08:32 Dose: 5 mg Promethazine HCl (Phenergan) 12.5 mg IV Q6H PRN PRN PRN Reason: NAUSEA/VOMITING Sodium Chloride () 5 - 30 ml IV UD PRN PRN Reason: SALINE FLUSH Last Admin: 08/10/18 05:23 Dose: 20 ml Medical Necessity - Tobacco Use Smoking Status: Never smoker Tobacco Use: Non-smoker Assessment/Plan All Active Problems Frequent falls (Acute) Elevated liver enzymes (Acute) Hyperglycemia (Acute) 1. Acute intractable back pain due to mechanical falls Patient still complains of pain in his shoulders, back and his knees from the fall. PT/OT on board case management on board had MRI of lumbar spine which showed noncompressive L4-5 disc protrusion awaiting placement fall precautions on flexeril and morphine 2. Parkinson's disease Likely contributes to recurrent falls neurology consulted; ordered MRI of umbar spine findings of which are as above. PT/OT on board on Sinemet 3. Hyperglycemia: Resolved. 4. Abnormal LFTs: Resolving. AST was 196 on admission has trended down to 167. Will monitor. 5. Leucopenia: white cell count is 3.7; Was 4.1 on admission. Hemoglobin and platelet levels are normal. Reason for mild leukopenia is not clear. Patient asymptomatic. Will monitor. DVT prophylaxis: lovenox Code status: full code Disposition: awaiting placement Code Visit OBSV E&M: 38927 Subsequent observation care L2
--- NOTE | 2018-08-10 10:59 | PN_ITS ---
Patient Problems: Active and Suspected Problems Frequent falls (Acute) Elevated liver enzymes (Acute) Hyperglycemia (Acute) Subjective: Patient seen and examined. He still complains of back pain, shoulder pain and knee pain from his fall. Otherwise he has no complaints and had a good night sleep. He denied any fever or chills, any cough or chest pain, shortness of breath, abdominal pain, any diarrhea vomiting. He is awaiting placement. Vitals/I&O's: Vital Signs Temp Pulse Resp BP Pulse Ox 97.5 F L 66 18 164/79 H 96 08/10/18 08:27 08/10/18 08:27 08/10/18 08:27 08/10/18 08:27 08/10/18 08:27 Oxygen Delivery Method Room Air Weight: 174 lb 13.225 oz Body Mass Index (BMI) 27.3 Intake and Output for Last 24 Hours 08/08/18 08/09/18 08/10/18 23:59 23:59 23:59 Intake Total 549 / 549 2677 / 2677 2170 / 2170 Output Total 250 / 250 2075 / 2075 1300 / 1300 Balance 299 / 299 602 / 602 870 / 870 General: Alert, Oriented x3, Cooperative, No apparent distress HEENT: Atraumatic, PERRLA, EOMI, Normocephalic Oral: Moist Mucosa Neck: Supple, No JVD, Negative Carotid Bruits Lungs: Clear to auscultation, Normal air movement, No rhonchi, No wheeze, No rales Cardiovascular: Regular rate, Regular Rhythm, Normal S1, Normal S2, No murmurs Abdomen: Bowel Sounds Present, Soft, Non Tender, Non-Distended, No Hepato-sple nomegaly Extremities: No clubbing, No cyanosis, No edema, Capillary Refill Less than 3 Seconds Skin: No rashes, No breakdown Musculoskeletal: No Tenderness to Palpation of Joints or Extremities Lymphatic: No Cervical, Supraclavicular, or Inguinal Adenopathy Neurological: Cranial nerves II-XII grossly intact Psych/Mental Status: Normal Affect, Appropriate, Alert and oriented to time, place, person, mood and affect Laboratory Results 08/10/18 05:56: WBC 3.7 L, RBC 4.20 L, Hgb 13.0, Hct 38.9 L, MCV 92.6, MCH 31.0, MCHC 33.4, RDW 12.7, RDW Differential 42.0, Plt Count 323, MPV 8.6, Immature Gran % (Auto) 0.500, Neut % (Auto) 61.8, Lymph % (Auto) 21.7, [place] % (Auto) 11.7 H, Eos % (Auto) 2.7, Baso % (Auto) 1.6 H, Absolute Neuts (auto) 2.3, Absolute Lymphs (auto) 0.80 L, Total Counted Not Reportable 08/10/18 05:56: Sodium 137, Potassium 4.0, Chloride 105, Carbon Dioxide 24.0, Anion Gap 8, BUN 17, Creatinine 0.79, Estim Creat Clear Calc 56.92, Est GFR (MDRD) Af Amer 121, Est GFR (MDRD) Non-Af 100, BUN/Creatinine Ratio 21.4 H, Glucose 95, Calcium 8.0 L Diagnostic Data Brain CT 08/08/18 16:15 IMPRESSION: 1. No acute process. 2. Mild microvascular ischemic changes. Atrophy. Electronically Signed: Jo Pompa MD at 17:22 EST Tel , Service support , Chest X-Ray 08/08/18 17:05 IMPRESSION: No acute process. Electronically Signed: Jo Pompa MD at 17:26 EST Tel , Service support , Lumbar Spine X-Ray 08/08/18 18:40 IMPRESSION: 1. No evidence of trauma. 2. Mild degenerative disc changes. Electronically Signed: Jo Pompa MD at 19:22 EST Tel , Service support , Thoracic Spine X-Ray 08/08/18 18:40 IMPRESSION: 1. No acute process. Electronically Signed: Jo Pompa MD at 19:18 EST Tel , Service support , Lumbar Spine MRI 08/09/18 12:02 IMPRESSION: 1. No trauma or spinal stenosis. 2. Noncompressive L4-5 disc protrusion. Electronically Signed: Jo Pompa MD at 16:41 EST Tel , Service support , Current Medications Al Hydroxide/Mg Hydroxide (Mylanta Ii) 30 ml PO Q6H PRN PRN PRN Reason: Gastric burning Carbidopa/Levodopa (Sinemet) 2 tablet PO TIDAC PIPER Last Admin: 08/10/18 06:30 Dose: 2 tablet Cyclobenzaprine HCl (Flexeril) 5 mg PO BID PRN PRN Reason: muscle strain, sprain Last Admin: 08/10/18 08:31 Dose: 5 mg Enoxaparin Sodium (Lovenox) 40 mg SC DAILY@1000 PIPER Last Admin: 08/10/18 08:33 Dose: 40 mg Sodium Chloride () 1,000 mls @ 100 mls/hr IV .Q10H PIPER Last Admin: 08/10/18 03:51 Dose: 100 mls/hr Magnesium Hydroxide (Milk Of Magnesia) 30 ml PO DAILY PRN PRN PRN Reason: Constipation Last Admin: 08/09/18 17:48 Dose: 30 ml Morphine Sulfate () 2 - 4 mg IV Q4H PRN PRN PRN Reason: PAIN Morphine Sulfate () 2 - 4 mg IV Q4H PRN PRN PRN Reason: PAIN Last Admin: 08/08/18 21:51 Dose: 4 mg Ondansetron HCl (Zofran) 4 mg IV Q8H PRN PRN PRN Reason: NAUSEA Oxycodone HCl (Oxyir) 5 - 10 mg PO Q4H PRN PRN PRN Reason: SEVERE PAIN (6-10/10) Last Admin: 08/10/18 08:32 Dose: 5 mg Promethazine HCl (Phenergan) 12.5 mg IV Q6H PRN PRN PRN Reason: NAUSEA/VOMITING Sodium Chloride () 5 - 30 ml IV UD PRN PRN Reason: SALINE FLUSH Last Admin: 08/10/18 05:23 Dose: 20 ml Medical Necessity - Tobacco Use Smoking Status: Never smoker Tobacco Use: Non-smoker Assessment/Plan All Active Problems Frequent falls (Acute) Elevated liver enzymes (Acute) Hyperglycemia (Acute) 1. Acute intractable back pain due to mechanical falls * Patient still complains of pain in his shoulders, back and his knees from the fall. 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 Parkinson's disease * Likely contributes to recurrent falls * neurology consulted; ordered MRI of umbar spine findings of which are as above. * PT/OT on board * on Sinemet * * 3. Hyperglycemia: * Resolved. * 4. Abnormal LFTs: * Resolving. * AST was 196 on admission has trended down to 167. * Will monitor. 5. Leucopenia: * white cell count is 3.7; Was 4.1 on admission. * Hemoglobin and platelet levels are normal. * Reason for mild leukopenia is not clear. * Patient asymptomatic. Will monitor. * DVT prophylaxis: lovenox Code status: full code Disposition: awaiting placement Code Visit OBSV E&M: 66337 Subsequent observation care L2
[2018-08-10] MEDS: Magnesium Hydroxide 30 ML UDC PO (11:45)
--- NOTE | 2018-08-10 11:53 | CASEMGMT ---
FARTUN GRAHAM NOTE: Reviewed JOHNSON form with pt and questions answered. Pt signed JOHNSON form. Copy placed on chart and pt given original. Trevor ELAINE RN CM
[2018-08-10 14:00] VITALS: BP 147/75; PULSE 69; RESP 18; TEMP 36.4; O2SAT 95
--- NOTE | 2018-08-10 14:00 | CASEMGMT ---
Social Work Note Per staff at [facility], pt's daughter was supposed to be at [facility] around 1:00pm. Pt's daughter was traveling from [place]. SW met with pt and attempted to discuss discharge options. Pt is unable to make decision for SNF at this time. Pt states he is unsure about where to go for SNF and would like to talk to this significant other Cathy and his daughter about SNF. SW will attempt to see pt again or will attempt to call pt's daughter or significant other Cathy. Plan: SNF pending acceptance and pre-cert Daina Amador VOLCANOLOGY PROFESSOR, JEWEL INSERTER
--- NOTE | 2018-08-10 14:43 | CHAPLAIN ---
Type of Pastoral Visit _x__ Initial Visit ___ Follow-up Visit ___ On-call Visit ___ General Patient Visit ___ Spiritual Assessment ___ Family Conference ___ Bereavement ___ Rapid Response ___ Code Blue ___ Other (describe below) Pastoral Care Referral From _x__ Patient ___ Family ___ Nurse ___ Physician ___ Bookmaker'S Clerk ___ Chief Of Staff Doctor ___ Other (describe below) Sacrament/Intervention _x__ Active listening ___ Anointing ___ Mosque ___ Bereavement ___ Communion ___ Zenaida exploration ___ _x__ Life review _x__ Prayer ___ Reconciliation ___ Sacrament of Sick _x__ Supportive presence ___ Wedding ___ Other (describe below) Pastoral Comments patient concern is to know what and where next
--- NOTE | 2018-08-10 15:57 | CASEMGMT ---
Social Work Note SANKET met with pt, pt's significant other Cathy. Per Cathy she is not making any decisions until pt's daughter Jacqui comes in to the hospital. Per Cathy, Jacqui will be in to [facility] around 6:00pm. SANKET updated FARTUN Ruffin that pt's daughter should be coming in today and to have FARTUN Ruffin talk to pt's daughter about placement. Plan: SNF pending acceptance and pre-cert Diana Amador ENVIRONMENTAL HEALTH AND SAFETY MANAGER, PLANNING ENGINEER
[2018-08-10] MEDS: Hydrocortisone 2.5% Crm 1 APPLIC TOPICAL (16:17)
[2018-08-10 19:54] VITALS: BP 138/82; PULSE 68; RESP 18; TEMP 36.5; O2SAT 96
[2018-08-10] MEDS: Bisacodyl 10 MG Suppository RECTAL (22:54)
[2018-08-10] MEDS: Polyethylene Glycol 3350 17 GM PACKET PO (22:54)
[2018-08-11] VITALS (7 sets, daily range): BP systolic 96–146; BP diastolic 43–90; PULSE 67–79; RESP 16–18; TEMP 36.5–36.7; O2SAT 95–98
--- NOTE | 2018-08-11 02:00 | NURSING ---
manager support notified this nurse that pt was found on the floor. pt stated that he was rubbing his back on the bed because it was itching and he slid out of bed. no apparent injuries noted. BP 140/90 HR 79 SPO2 95% RA, T 97.7. Dr Morris and family notified.
[2018-08-11] MEDS: DiphenhydrAMINE 25 MG Capsule PO (05:19)
[2018-08-11] MEDS: Hydrocortisone 2.5% Crm 1 APPLIC TOPICAL ×3 (05:20→21:58)
[2018-08-11 06:18] LABS: Absolute Lymphocyte Count 0.84 X10^3/ul (0.83-4.51); Absolute Neutrophil Count 3.7 X10^3/uL (2.0-7.7); Basophil# 0.08 X10^3/uL; Basophil% 1.5 % (0-1); Eosinophil# 0.13 X10^3/uL; Eosinophils% 2.4 % (0-5); Hemoglobin 14.2 g/dl (13.0-16.5); Lymphocyte # 0.84 X10^3/ul (4.0); Lymphocyte % 15.6 % (19-41); Mean Corp Hgb Conc 33.8 g/gl (32-36); Mean Corpuscular Hgb 31.2 pg (27.0-32.0); Mean Corpuscular Volume 92.3 fL (80-94); Mean Platelet Vol. 8.5 fl (6.2-12.0); Monocyte# 0.61 X10^3/uL; Monocyte% 11.3 % (0-10); Neutrophil # 3.72 X10^3/uL (2.7-7.7); Neutrophil % 68.8 % (47-70); Platelet Count 349 K/mm3 (150-450); RBC Distribution Width CV 12.6 % (11.6-14.6); RBC Distribution Width SD 41.4 fl (35.1-43.9); Red Blood Count 4.55 M/mm3 (4.6-6.2); White Blood Count 5.4 K/mm3 (4.4-11.0)
[2018-08-11 06:34] LABS: POSITIVE COUNT NO; POSITIVE DIFFERENTIAL NO; POSITIVE MORPHOLOGY NO
[2018-08-11 06:51] LABS: Anion Gap 7 (5-15); BUN 14 mg/dL (7-18); BUN/Creat Ratio 16.3 RATIO (10-20); Calcium,Total 8.4 mg/dL (8.5-10.1); Chloride 102 mmol/L (98-107); Creatinine, Serum 0.86 mg/dL (0.70-1.30); EST Glomerular Filtration Rate 92 mL/min (>60); Est Glom Filt Rate - Afr Amer 111 mL/min (>60); Estimated Creatinine Clearance 66.19 ml/min; Glucose 90 mg/dL (74-106); Potassium 4.1 mmol/L (3.5-5.1); Sodium Level 137 mmol/L (136-145)
[2018-08-11] MEDS: Enoxaparin 40 MG/0.4 ML Syringe SC (07:55)
[2018-08-11] MEDS: Carbidopa/Levodopa 25/100 Tablet PO ×3 (07:55→16:10)
[2018-08-11] MEDS: Polyethylene Glycol 3350 17 GM PACKET PO (07:58)
[2018-08-11] MEDS: Senna/Docusate Sodium 1 Tablet 2 TABLET PO ×2 (07:58→21:58)
--- NOTE | 2018-08-11 13:07 | CASEMGMT ---
Addendum entered by Diana Amador 08/11/18 14:55: SANKET placed a call to Jo at [facility] who states she has not heard from her Turner Splitter Machine Operator yet regarding referral. Jo states Turner Splitter Machine Operator will review referral tomorrow morning. Original Note: Social Work Note RN updated this worker that pt's daughter present in room. SW met with pt and pt's daughter. SW introduced self and role at [facility]. Pt's daughter states her first choice would be TCU at [facility] and second choice would be [facility]. SANKET explained that as far as this worker knows there are no beds on TCU currently but that this worker will confirm. SW explained that if TCU don't have any beds then this worker would send referral to [facility]. Pt and pt's daughter state understanding. SANKET spoke with Rayne in TCU who confirms she currently doesn't have any beds. SANKET called [facility] and spoke with Jo in admissions. Jo states she has beds and will review referral. SANKET faxed referral. SANKET spoke with Jo who states she will have Turner Splitter Machine Operator review referral. Jo provided direct number [phone]. SANKET waiting for call back from Jo at [facility]. Plan: SNF pending acceptance and pre-cert Diana Amador REAL ESTATE ACCOUNT EXECUTIVE, MEDICAL LIAISON
--- NOTE | 2018-08-11 13:30 | PCM.PN.HOSP ---
Patient Problems: Active and Suspected Problems Frequent falls (Acute) Elevated liver enzymes (Acute) Hyperglycemia (Acute) Subjective: Patient seen and examined. Was comfortably eating breakfast with his daughter by his side. He denied any fever or chills, cough or chest pain, shortness of breath, abdominal pain, any diarrhea or vomiting. Review of systems otherwise negative. Labs and vitals reviewed. He is awaiting placement. Patient still remains weak and according to his daughter, he needed a 2 person transfer today. Vitals/I&O's: Vital Signs Temp Pulse Resp BP Pulse Ox 97.9 F 67 18 137/79 H 97 08/11/18 08:00 08/11/18 08:00 08/11/18 08:00 08/11/18 08:00 08/11/18 08:40 Oxygen Delivery Method Room Air Weight: 174 lb 13.225 oz Body Mass Index (BMI) 27.3 Intake and Output for Last 24 Hours 08/09/18 08/10/18 08/11/18 23:59 23:59 23:59 Intake Total 2677 / 2677 4017 / 4017 1140 / 1140 Output Total 2075 / 2075 2475 / 2475 1450 / 1450 Balance 602 / 602 1542 / 1542 -310 / -310 General: Alert, Oriented x3, Cooperative, No apparent distress HEENT: Atraumatic, PERRLA, EOMI, Normocephalic Oral: Moist Mucosa Neck: Supple, No JVD, Negative Carotid Bruits, No Nodes Lungs: Clear to auscultation, Normal air movement, No rhonchi, No wheeze, No rales Cardiovascular: Regular rate, Regular Rhythm, Normal S1, Normal S2, No murmurs Abdomen: Bowel Sounds Present, Soft, Non Tender, Non-Distended, No Hepato-splenomegaly Extremities: No clubbing, No cyanosis, No edema, Capillary Refill Less than 3 Seconds Skin: No rashes, No breakdown Musculoskeletal: No Tenderness to Palpation of Joints or Extremities Lymphatic: No Cervical, Supraclavicular, or Inguinal Adenopathy Neurological: Cranial nerves II-XII grossly intact, Neuro grossly intact, Motor Exam 5/5 strength throughout Psych/Mental Status: Normal Affect, Appropriate, Alert and oriented to time, place, person, mood and affect Laboratory Results 08/11/18 05:54: WBC 5.4, RBC 4.55 L, Hgb 14.2, Hct 42.0, MCV 92.3, MCH 31.2, MCHC 33.8, RDW 12.6, RDW Differential 41.4, Plt Count 349, MPV 8.5, Immature Gran % (Auto) 0.400, Neut % (Auto) 68.8, Lymph % (Auto) 15.6 L, [place] % (Auto) 11.3 H, Eos % (Auto) 2.4, Baso % (Auto) 1.5 H, Absolute Neuts (auto) 3.7, Absolute Lymphs (auto) 0.84, Total Counted Not Reportable 08/11/18 05:54: Sodium 137, Potassium 4.1, Chloride 102, Carbon Dioxide 28.0, Anion Gap 7, BUN 14, Creatinine 0.86, Estim Creat Clear Calc 66.19, Est GFR (MDRD) Af Amer 111, Est GFR (MDRD) Non-Af 92, BUN/Creatinine Ratio 16.3, Glucose 90, Calcium 8.4 L Current Medications Al Hydroxide/Mg Hydroxide (Mylanta Ii) 30 ml PO Q6H PRN PRN PRN Reason: Gastric burning Bisacodyl (Dulcolax) 10 mg RECTAL DAILY PRN PRN Reason: constipation Last Admin: 08/10/18 22:54 Dose: 10 mg Carbidopa/Levodopa (Sinemet) 2 tablet PO TIDAC [facility] Last Admin: 08/11/18 10:48 Dose: 2 tablet Cyclobenzaprine HCl (Flexeril) 5 mg PO BID PRN PRN Reason: muscle strain, sprain Last Admin: 08/10/18 22:14 Dose: 5 mg Diphenhydramine HCl (Benadryl) 25 mg PO TID PRN PRN PRN Reason: ITCHING Last Admin: 08/11/18 05:19 Dose: 25 mg Enoxaparin Sodium (Lovenox) 40 mg SC DAILY@1000 [facility] Last Admin: 08/11/18 07:55 Dose: 40 mg Hydrocortisone (Hytone) 1 applic TOPICAL TID [facility]; Protocol Last Admin: 08/11/18 05:20 Dose: 1 applicatio Magnesium Hydroxide (Milk Of Magnesia) 30 ml PO DAILY PRN PRN PRN Reason: Constipation Last Admin: 08/10/18 11:45 Dose: 30 ml Morphine Sulfate () 2 - 4 mg IV Q4H PRN PRN PRN Reason: PAIN Morphine Sulfate () 2 - 4 mg IV Q4H PRN PRN PRN Reason: PAIN Last Admin: 08/08/18 21:51 Dose: 4 mg Ondansetron HCl (Zofran) 4 mg IV Q8H PRN PRN PRN Reason: NAUSEA Oxycodone HCl (Oxyir) 5 - 10 mg PO Q4H PRN PRN PRN Reason: SEVERE PAIN (6-10/10) Last Admin: 08/10/18 22:14 Dose: 10 mg Polyethylene Glycol (Miralax) 17 gm PO DAILY [facility] Last Admin: 08/11/18 07:58 Dose: 17 gm Promethazine HCl (Phenergan) 12.5 mg IV Q6H PRN PRN PRN Reason: NAUSEA/VOMITING Senna/Docusate Sodium (Senokot-S, Elsie-Colace) 2 tablet PO BID [facility] Last Admin: 08/11/18 07:58 Dose: 2 tablet Sodium Chloride () 5 - 30 ml IV UD PRN PRN Reason: SALINE FLUSH Last Admin: 08/10/18 05:23 Dose: 20 ml Medical Necessity - Tobacco Use Smoking Status: Never smoker Tobacco Use: Non-smoker Assessment/Plan All Active Problems Frequent falls (Acute) Elevated liver enzymes (Acute) Hyperglycemia (Acute) 1. Acute intractable back pain due to mechanical falls pain is better controlled now. PT/OT on board case management on board had MRI of lumbar spine which showed noncompressive L4-5 disc protrusion awaiting placement fall precautions on flexeril and morphine 2. Parkinson's disease Likely contributes to recurrent falls neurology consulted; ordered MRI of umbar spine findings of which are as above. PT/OT on board on Sinemet 3. Hyperglycemia: Resolved. 4. Abnormal LFTs: stable cause is not clear; patient is asymptomatic will monitor 5. Leucopenia: resolved. white cell count is 5.4 today. will continue monitoring. DVT prophylaxis: lovenox Code status: full code Disposition: awaiting placement Code Visit Inpatient E&M: 57797 Subs Hosp L2
--- NOTE | 2018-08-11 13:34 | PN_ITS ---
Patient Problems: Active and Suspected Problems Frequent falls (Acute) Elevated liver enzymes (Acute) Hyperglycemia (Acute) Subjective: Patient seen and examined. Was comfortably eating breakfast with his daughter by his side. He denied any fever or chills, cough or chest pain, shortness of breath, abdominal pain, any diarrhea or vomiting. Review of systems otherwise negative. Labs and vitals reviewed. He is awaiting placement. Patient still remains weak and according to his daughter, he needed a 2 person transfer today. Vitals/I&O's: Vital Signs Temp Pulse Resp BP Pulse Ox 97.9 F 67 18 137/79 H 97 08/11/18 08:00 08/11/18 08:00 08/11/18 08:00 08/11/18 08:00 08/11/18 08:40 Oxygen Delivery Method Room Air Weight: 174 lb 13.225 oz Body Mass Index (BMI) 27.3 Intake and Output for Last 24 Hours 08/09/18 08/10/18 08/11/18 23:59 23:59 23:59 Intake Total 2677 / 2677 4017 / 4017 1140 / 1140 Output Total 2075 / 2075 2475 / 2475 1450 / 1450 Balance 602 / 602 1542 / 1542 -310 / -310 General: Alert, Oriented x3, Cooperative, No apparent distress HEENT: Atraumatic, PERRLA, EOMI, Normocephalic Oral: Moist Mucosa Neck: Supple, No JVD, Negative Carotid Bruits, No Nodes Lungs: Clear to auscultation, Normal air movement, No rhonchi, No wheeze, No rales Cardiovascular: Regular rate, Regular Rhythm, Normal S1, Normal S2, No murmurs Abdomen: Bowel Sounds Present, Soft, Non Tender, Non-Distended, No Hepato- splenomegaly Extremities: No clubbing, No cyanosis, No edema, Capillary Refill Less than 3 Seconds Skin: No rashes, No breakdown Musculoskeletal: No Tenderness to Palpation of Joints or Extremities Lymphatic: No Cervical, Supraclavicular, or Inguinal Adenopathy Neurological: Cranial nerves II-XII grossly intact, Neuro grossly intact, Motor Exam 5/5 strength throughout Psych/Mental Status: Normal Affect, Appropriate, Alert and oriented to time, place, person, mood and affect Laboratory Results 08/11/18 05:54: WBC 5.4, RBC 4.55 L, Hgb 14.2, Hct 42.0, MCV 92.3, MCH 31.2, MCHC 33.8, RDW 12.6, RDW Differential 41.4, Plt Count 349, MPV 8.5, Immature Gran % (Auto) 0.400, Neut % (Auto) 68.8, Lymph % (Auto) 15.6 L, [place] % (Auto) 11.3 H, Eos % (Auto) 2.4, Baso % (Auto) 1.5 H, Absolute Neuts (auto) 3.7, Absolute Lymphs (auto) 0.84, Total Counted Not Reportable 08/11/18 05:54: Sodium 137, Potassium 4.1, Chloride 102, Carbon Dioxide 28.0, Anion Gap 7, BUN 14, Creatinine 0.86, Estim Creat Clear Calc 66.19, Est GFR (MDRD) Af Amer 111, Est GFR (MDRD) Non-Af 92, BUN/Creatinine Ratio 16.3, Glucose 90, Calcium 8.4 L Current Medications Al Hydroxide/Mg Hydroxide (Mylanta Ii) 30 ml PO Q6H PRN PRN PRN Reason: Gastric burning Bisacodyl (Dulcolax) 10 mg RECTAL DAILY PRN PRN Reason: constipation Last Admin: 08/10/18 22:54 Dose: 10 mg Carbidopa/Levodopa (Sinemet) 2 tablet PO TIDAC [facility] Last Admin: 08/11/18 10:48 Dose: 2 tablet Cyclobenzaprine HCl (Flexeril) 5 mg PO BID PRN PRN Reason: muscle strain, sprain Last Admin: 08/10/18 22:14 Dose: 5 mg Diphenhydramine HCl (Benadryl) 25 mg PO TID PRN PRN PRN Reason: ITCHING Last Admin: 08/11/18 05:19 Dose: 25 mg Enoxaparin Sodium (Lovenox) 40 mg SC DAILY@1000 [facility] Last Admin: 08/11/18 07:55 Dose: 40 mg Hydrocortisone (Hytone) 1 applic TOPICAL TID [facility]; Protocol Last Admin: 08/11/18 05:20 Dose: 1 applicatio Magnesium Hydroxide (Milk Of Magnesia) 30 ml PO DAILY PRN PRN PRN Reason: Constipation Last Admin: 08/10/18 11:45 Dose: 30 ml Morphine Sulfate () 2 - 4 mg IV Q4H PRN PRN PRN Reason: PAIN Morphine Sulfate () 2 - 4 mg IV Q4H PRN PRN PRN Reason: PAIN Last Admin: 08/08/18 21:51 Dose: 4 mg Ondansetron HCl (Zofran) 4 mg IV Q8H PRN PRN PRN Reason: NAUSEA Oxycodone HCl (Oxyir) 5 - 10 mg PO Q4H PRN PRN PRN Reason: SEVERE PAIN (6-10/10) Last Admin: 08/10/18 22:14 Dose: 10 mg Polyethylene Glycol (Miralax) 17 gm PO DAILY [facility] Last Admin: 08/11/18 07:58 Dose: 17 gm Promethazine HCl (Phenergan) 12.5 mg IV Q6H PRN PRN PRN Reason: NAUSEA/VOMITING Senna/Docusate Sodium (Senokot-S, Elsie-Colace) 2 tablet PO BID [facility] Last Admin: 08/11/18 07:58 Dose: 2 tablet Sodium Chloride () 5 - 30 ml IV UD PRN PRN Reason: SALINE FLUSH Last Admin: 08/10/18 05:23 Dose: 20 ml Medical Necessity - Tobacco Use Smoking Status: Never smoker Tobacco Use: Non-smoker Assessment/Plan All Active Problems Frequent falls (Acute) Elevated liver enzymes (Acute) Hyperglycemia (Acute) 1. Acute intractable back pain due to mechanical falls * pain is better controlled now. 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 Parkinson's disease * Likely contributes to recurrent falls * neurology consulted; ordered MRI of umbar spine findings of which are as above. * PT/OT on board * on Sinemet * * 3. Hyperglycemia: * Resolved. * 4. Abnormal LFTs: * stable * cause is not clear; patient is asymptomatic * will monitor * 5. Leucopenia: * resolved. white cell count is 5.4 today. * will continue monitoring. * DVT prophylaxis: lovenox Code status: full code Disposition: awaiting placement Code Visit Inpatient E&M: 78775 Subs Hosp L2
[2018-08-12 03:23] VITALS: BP 142/71; PULSE 77; RESP 16; TEMP 36.3; O2SAT 98
[2018-08-12] MEDS: oxyCODONE 5 MG Tablet PO (04:52)
[2018-08-12] MEDS: Carbidopa/Levodopa 25/100 Tablet PO ×3 (06:09→16:45)
[2018-08-12] MEDS: Hydrocortisone 2.5% Crm 1 APPLIC TOPICAL ×3 (06:10→22:40)
[2018-08-12 10:30] VITALS: BP 97/58; PULSE 89; RESP 16; TEMP 36.6; O2SAT 94
[2018-08-12 10:58] VITALS: O2SAT 97
--- NOTE | 2018-08-12 11:08 | PCM.PN.HOSP ---
Patient Problems: Active and Suspected Problems Frequent falls (Acute) Elevated liver enzymes (Acute) Hyperglycemia (Acute) Subjective: Patient seen and examined. He complains of pain in his left hand. He has a history of arthritis and states he has a history of playing baseball and so he has had this pain for a while but is gotten worse. He has no other complaints and denies any fever chills, cough or chest pain, any shortness of breath, abdominal pain, any diarrhea vomiting. Review of systems otherwise negative. Labs and vitals reviewed. Vitals/I&O's: Vital Signs Temp Pulse Resp BP Pulse Ox 97.4 F L 77 16 142/71 H 97 08/12/18 03:23 08/12/18 03:23 08/12/18 03:23 08/12/18 03:23 08/12/18 10:58 Oxygen Delivery Method Room Air Weight: 174 lb 13.225 oz Body Mass Index (BMI) 27.3 Intake and Output for Last 24 Hours 08/10/18 08/11/18 08/12/18 23:59 23:59 23:59 Intake Total 4017 / 4017 1540 / 1540 600 / 600 Output Total 2475 / 2475 1450 / 1450 900 / 900 Balance 1542 / 1542 90 / 90 -300 / -300 General: Alert, Oriented x3, Cooperative, No apparent distress HEENT: Atraumatic, PERRLA, EOMI, Normocephalic Oral: Moist Mucosa Neck: Supple, No JVD, Negative Carotid Bruits Lungs: Clear to auscultation, Normal air movement, No rhonchi, No wheeze, No rales Cardiovascular: Regular rate, No murmurs Abdomen: Bowel Sounds Present, Soft, Non Tender, Non-Distended, No Hepato-splenomegaly Extremities: No clubbing, No cyanosis, No edema, Capillary Refill Less than 3 Seconds Skin: No rashes, No breakdown Musculoskeletal: - - tenderness in left 3rd MCP joint with mild swelling Lymphatic: No Cervical, Supraclavicular, or Inguinal Adenopathy Neurological: Cranial nerves II-XII grossly intact, Neuro grossly intact, Motor Exam 5/5 strength throughout Psych/Mental Status: Normal Affect, Appropriate, Alert and oriented to time, place, person, mood and affect Diagnostic Data Brain CT 08/08/18 16:15 IMPRESSION: 1. No acute process. 2. Mild microvascular ischemic changes. Atrophy. Electronically Signed: Jo Pompa MD at 17:22 EST Tel , Service support , Chest X-Ray 08/08/18 17:05 IMPRESSION: No acute process. Electronically Signed: Jo Pompa MD at 17:26 EST Tel , Service support , Lumbar Spine X-Ray 08/08/18 18:40 IMPRESSION: 1. No evidence of trauma. 2. Mild degenerative disc changes. Electronically Signed: Jo Pompa MD at 19:22 EST Tel , Service support , Thoracic Spine X-Ray 08/08/18 18:40 IMPRESSION: 1. No acute process. Electronically Signed: Jo Pompa MD at 19:18 EST Tel , Service support , Lumbar Spine MRI 08/09/18 12:02 IMPRESSION: 1. No trauma or spinal stenosis. 2. Noncompressive L4-5 disc protrusion. Electronically Signed: Jo Pompa MD at 16:41 EST Tel , Service support , ADDENDUM: 08/10/18 2328 Current Medications Al Hydroxide/Mg Hydroxide (Mylanta Ii) 30 ml PO Q6H PRN PRN PRN Reason: Gastric burning Bisacodyl (Dulcolax) 10 mg RECTAL DAILY PRN PRN Reason: constipation Last Admin: 08/10/18 22:54 Dose: 10 mg Carbidopa/Levodopa (Sinemet) 2 tablet PO TIDAC [facility] Last Admin: 08/12/18 06:09 Dose: 2 tablet Cyclobenzaprine HCl (Flexeril) 5 mg PO BID PRN PRN Reason: muscle strain, sprain Last Admin: 08/10/18 22:14 Dose: 5 mg Diphenhydramine HCl (Benadryl) 25 mg PO TID PRN PRN PRN Reason: ITCHING Last Admin: 08/11/18 05:19 Dose: 25 mg Enoxaparin Sodium (Lovenox) 40 mg SC DAILY@1000 [facility] Last Admin: 08/11/18 07:55 Dose: 40 mg Hydrocortisone (Hytone) 1 applic TOPICAL TID [facility]; Protocol Last Admin: 08/12/18 06:10 Dose: 1 applicatio Magnesium Hydroxide (Milk Of Magnesia) 30 ml PO DAILY PRN PRN PRN Reason: Constipation Last Admin: 08/10/18 11:45 Dose: 30 ml Morphine Sulfate () 2 - 4 mg IV Q4H PRN PRN PRN Reason: PAIN Morphine Sulfate () 2 - 4 mg IV Q4H PRN PRN PRN Reason: PAIN Last Admin: 08/08/18 21:51 Dose: 4 mg Ondansetron HCl (Zofran) 4 mg IV Q8H PRN PRN PRN Reason: NAUSEA Oxycodone HCl (Oxyir) 5 - 10 mg PO Q4H PRN PRN PRN Reason: SEVERE PAIN (6-10/10) Last Admin: 08/12/18 04:52 Dose: 10 mg Polyethylene Glycol (Miralax) 17 gm PO DAILY [facility] Last Admin: 08/11/18 07:58 Dose: 17 gm Promethazine HCl (Phenergan) 12.5 mg IV Q6H PRN PRN PRN Reason: NAUSEA/VOMITING Senna/Docusate Sodium (Senokot-S, Elsie-Colace) 2 tablet PO BID [facility] Last Admin: 08/11/18 21:58 Dose: 2 tablet Sodium Chloride () 5 - 30 ml IV UD PRN PRN Reason: SALINE FLUSH Last Admin: 08/10/18 05:23 Dose: 20 ml Medical Necessity - Tobacco Use Smoking Status: Never smoker Tobacco Use: Non-smoker Assessment/Plan All Active Problems Frequent falls (Acute) Elevated liver enzymes (Acute) Hyperglycemia (Acute) 1. Acute intractable back pain due to mechanical falls pain is better controlled now. PT/OT on board case management on board had MRI of lumbar spine which showed noncompressive L4-5 disc protrusion awaiting placement fall precautions on flexeril and morphine 2. Parkinson's disease Likely contributes to recurrent falls neurology consulted; ordered MRI of umbar spine findings of which are as above. PT/OT on board on Sinemet daughter is worried about possibility of Guillain [place] syndrome as he had a respiratory tract infection a few weeks ago she states he is much weaker than he previously was. According to her, he was usually is fairly active and was able to chop wood. I discussed with patient's daughter that I didnt think his symptoms fit in with Guillan [place]; neurology is on board; will seek their rec's. 3. Hyperglycemia: Resolved. 4. Abnormal LFTs: stable cause is not clear; patient is asymptomatic will monitor 5. Leucopenia: resolved. white cell count is 5.4 today. will continue monitoring. DVT prophylaxis: lovenox Code status: full code Disposition: awaiting placement Code Visit Inpatient E&M: 78365 Subs Hosp L2
[2018-08-12] MEDS: Enoxaparin 40 MG/0.4 ML Syringe SC (11:12)
--- NOTE | 2018-08-12 11:12 | PN_ITS ---
Patient Problems: Active and Suspected Problems Frequent falls (Acute) Elevated liver enzymes (Acute) Hyperglycemia (Acute) Subjective: Patient seen and examined. He complains of pain in his left hand. He has a history of arthritis and states he has a history of playing baseball and so he has had this pain for a while but is gotten worse. He has no other complaints and denies any fever chills, cough or chest pain, any shortness of breath, abdominal pain, any diarrhea vomiting. Review of systems otherwise negative. Labs and vitals reviewed. Vitals/I&O's: Vital Signs Temp Pulse Resp BP Pulse Ox 97.4 F L 77 16 142/71 H 97 08/12/18 03:23 08/12/18 03:23 08/12/18 03:23 08/12/18 03:23 08/12/18 10:58 Oxygen Delivery Method Room Air Weight: 174 lb 13.225 oz Body Mass Index (BMI) 27.3 Intake and Output for Last 24 Hours 08/10/18 08/11/18 08/12/18 23:59 23:59 23:59 Intake Total 4017 / 4017 1540 / 1540 600 / 600 Output Total 2475 / 2475 1450 / 1450 900 / 900 Balance 1542 / 1542 90 / 90 -300 / -300 General: Alert, Oriented x3, Cooperative, No apparent distress HEENT: Atraumatic, PERRLA, EOMI, Normocephalic Oral: Moist Mucosa Neck: Supple, No JVD, Negative Carotid Bruits Lungs: Clear to auscultation, Normal air movement, No rhonchi, No wheeze, No rales Cardiovascular: Regular rate, No murmurs Abdomen: Bowel Sounds Present, Soft, Non Tender, Non-Distended, No Hepato- splenomegaly Extremities: No clubbing, No cyanosis, No edema, Capillary Refill Less than 3 Seconds Skin: No rashes, No breakdown Musculoskeletal: - - tenderness in left 3rd MCP joint with mild swelling Lymphatic: No Cervical, Supraclavicular, or Inguinal Adenopathy Neurological: Cranial nerves II-XII grossly intact, Neuro grossly intact, Motor Exam 5/5 strength throughout Psych/Mental Status: Normal Affect, Appropriate, Alert and oriented to time, place, person, mood and affect Diagnostic Data Brain CT 08/08/18 16:15 IMPRESSION: 1. No acute process. 2. Mild microvascular ischemic changes. Atrophy. Electronically Signed: Jo Pompa MD at 17:22 EST Tel , Service support , Chest X-Ray 08/08/18 17:05 IMPRESSION: No acute process. Electronically Signed: Jo Pompa MD at 17:26 EST Tel , Service support , Lumbar Spine X-Ray 08/08/18 18:40 IMPRESSION: 1. No evidence of trauma. 2. Mild degenerative disc changes. Electronically Signed: Jo Pompa MD at 19:22 EST Tel , Service support , Thoracic Spine X-Ray 08/08/18 18:40 IMPRESSION: 1. No acute process. Electronically Signed: Jo Pompa MD at 19:18 EST Tel , Service support , Lumbar Spine MRI 08/09/18 12:02 IMPRESSION: 1. No trauma or spinal stenosis. 2. Noncompressive L4-5 disc protrusion. Electronically Signed: Jo Pompa MD at 16:41 EST Tel , Service support , ADDENDUM: 08/10/18 2328 Current Medications Al Hydroxide/Mg Hydroxide (Mylanta Ii) 30 ml PO Q6H PRN PRN PRN Reason: Gastric burning Bisacodyl (Dulcolax) 10 mg RECTAL DAILY PRN PRN Reason: constipation Last Admin: 08/10/18 22:54 Dose: 10 mg Carbidopa/Levodopa (Sinemet) 2 tablet PO TIDAC [facility] Last Admin: 08/12/18 06:09 Dose: 2 tablet Cyclobenzaprine HCl (Flexeril) 5 mg PO BID PRN PRN Reason: muscle strain, sprain Last Admin: 08/10/18 22:14 Dose: 5 mg Diphenhydramine HCl (Benadryl) 25 mg PO TID PRN PRN PRN Reason: ITCHING Last Admin: 08/11/18 05:19 Dose: 25 mg Enoxaparin Sodium (Lovenox) 40 mg SC DAILY@1000 PIPER Last Admin: 08/11/18 07:55 Dose: 40 mg Hydrocortisone (Hytone) 1 applic TOPICAL TID [facility]; Protocol Last Admin: 08/12/18 06:10 Dose: 1 applicatio Magnesium Hydroxide (Milk Of Magnesia) 30 ml PO DAILY PRN PRN PRN Reason: Constipation Last Admin: 08/10/18 11:45 Dose: 30 ml Morphine Sulfate () 2 - 4 mg IV Q4H PRN PRN PRN Reason: PAIN Morphine Sulfate () 2 - 4 mg IV Q4H PRN PRN PRN Reason: PAIN Last Admin: 08/08/18 21:51 Dose: 4 mg Ondansetron HCl (Zofran) 4 mg IV Q8H PRN PRN PRN Reason: NAUSEA Oxycodone HCl (Oxyir) 5 - 10 mg PO Q4H PRN PRN PRN Reason: SEVERE PAIN (6-10/10) Last Admin: 08/12/18 04:52 Dose: 10 mg Polyethylene Glycol (Miralax) 17 gm PO DAILY [facility] Last Admin: 08/11/18 07:58 Dose: 17 gm Promethazine HCl (Phenergan) 12.5 mg IV Q6H PRN PRN PRN Reason: NAUSEA/VOMITING Senna/Docusate Sodium (Senokot-S, Elsie-Colace) 2 tablet PO BID [facility] Last Admin: 08/11/18 21:58 Dose: 2 tablet Sodium Chloride () 5 - 30 ml IV UD PRN PRN Reason: SALINE FLUSH Last Admin: 08/10/18 05:23 Dose: 20 ml Medical Necessity - Tobacco Use Smoking Status: Never smoker Tobacco Use: Non-smoker Assessment/Plan All Active Problems Frequent falls (Acute) Elevated liver enzymes (Acute) Hyperglycemia (Acute) 1. Acute intractable back pain due to mechanical falls * pain is better controlled now. 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 Parkinson's disease * Likely contributes to recurrent falls * neurology consulted; ordered MRI of umbar spine findings of which are as above. * PT/OT on board * on Sinemet * daughter is worried about possibility of Guillain [place] syndrome as he had a respiratory tract infection a few weeks ago she states he is much weaker than he previously was. According to her, he was usually is fairly active and was able to chop wood. I discussed with patient's daughter that I didnt think his symptoms fit in with Guillan [place]; neurology is on board; will seek their rec's. * 3. Hyperglycemia: * Resolved. * 4. Abnormal LFTs: * stable * cause is not clear; patient is asymptomatic * will monitor * 5. Leucopenia: * resolved. white cell count is 5.4 today. * will continue monitoring. * DVT prophylaxis: lovenox Code status: full code Disposition: awaiting placement Code Visit Inpatient E&M: 64677 Subs Hosp L2
[2018-08-12] MEDS: Senna/Docusate Sodium 1 Tablet 2 TABLET PO ×2 (11:13→22:41)
--- NOTE | 2018-08-12 11:32 | RAD_ITS ---
STUDY: X-RAY - RIGHT HAND REASON FOR EXAM: Male, 78 years old. Hand pain. TECHNIQUE: 3 view(s) of the hand. COMPARISON: None. FINDINGS: No acute fracture or dislocation is seen. Moderately prominent degenerative changes seen of the first, second and third metacarpophalangeal joints. Mild degenerative changes seen of the interphalangeal joints of the digits. Normal mineralization. Soft tissues grossly normal. RAD/Hand Min 3 Views IMPRESSION: No acute fractures or dislocations. Degenerative changes. Electronically Signed: Dean Ayala MD at 16:18 EST , Service support ,
--- NOTE | 2018-08-12 11:55 | NURSING ---
this rn taking over care of pt at this time
--- NOTE | 2018-08-12 12:17 | CASEMGMT ---
Social Work Note SANKET spoke with Jo in admissions at [facility]. Per Jo she is able to accept pt. SW informed Jo that this worker will submit referral to [facility]. SANKET faxed referral to [facility]. SANKET called [facility] and left message regarding SNF placement for pt. SANKET waiting to hear back from [facility] Plan: Discharge to [facility] once pre-cert is obtained Diana Amador CONSERVATOR [employer], POST SECONDARY PROFESSIONAL
--- NOTE | 2018-08-12 12:39 | MRI_ITS ---
STUDY: MRI BRAIN WITHOUT CONTRAST REASON FOR EXAM: Male, 78 years old. Weakness TECHNIQUE: Standardized multiplanar fat and water weighted pulse sequences were obtained. COMPARISON: None. FINDINGS: There is mild cerebral atrophy with widening of the extra-axial spaces and ventricular dilatation. There are multiple white matter hyperintensities, distributed throughout the deep white matter tracts of the cerebral hemispheres, consistent with moderate chronic white matter ischemic changes. Normal bilateral basal ganglia. Normal thalami. There is no extra-axial fluid accumulation. Normal flow voids within the major intracranial circulation suggesting patency by spin echo criteria. Normal sella turcica, pituitary gland, infundibular stalk, optic chiasm and hypothalamus. Normal tectal plate and pineal gland. Normal midbrain, nneka and medulla. Normal cerebellum. Normal basal cisterns. Normal bilateral temporal bones. Normal bilateral internal auditory canals. MRI/Brain without Contrast IMPRESSION: No acute intracranial abnormality. Moderate chronic microvascular ischemic changes. Electronically Signed: Tyler Mir MD at 9:37 EST Tel , Service support ,
--- NOTE | 2018-08-12 12:40 | MRI_ITS ---
STUDY: MRI CERVICAL SPINE WITHOUT CONTRAST REASON FOR EXAM: Male, 78 years old. Ongoing falls, weakness. Parkinson's disease. TECHNIQUE: Standardized fat and water weighted pulse sequences were obtained in the sagittal and axial planes. COMPARISON: X-ray 08/09/2018. FINDINGS: Normal foramen magnum and brainstem-cervical cord junction. Normal craniovertebral junction. Normal anterior atlantoaxial articulation. Normal odontoid process. Normal cervical lordosis. Normal vertebral bodies and posterior osseous elements. C2-3: Normal endplates. Normal disc height, signal and morphology. Normal central canal and intervertebral neural foramina. C3-4: Normal endplates. Disc space narrowing. There is a mild spondylotic bar. No canal stenosis. There is mild to moderate foraminal stenosis, greater on the left, due to uncinate and mild facet hypertrophy. C4-5: Normal endplates. Disc space narrowing. Mild spondylotic bar with cord flattening. Borderline canal stenosis due to shortened pedicles and spondylosis. Severe foraminal stenosis, greater on the right, due to uncinate and mild facet hypertrophy. C5-6: Normal endplates. Disc space narrowing. Mild, noncompressive spondylotic bar. No canal stenosis. Moderate to severe foraminal stenosis, greater on the right, due to uncinate and facet hypertrophy. C6-7: Normal endplates. Disc space narrowing. Mild, noncompressive spondylotic bar. No canal or foraminal stenosis. C7-T1: Normal endplates. Normal disc height, signal and morphology. Normal central canal and intervertebral neural foramina. Normal cervical cord. Normal visualized soft tissue structures. MRI/Spine Cervical (Routine) IMPRESSION: 1. No evidence of trauma. 2. Borderline C4-5 canal stenosis. 3. Multilevel foraminal stenosis, greatest at C4-5 and C5-6. Electronically Signed: Jo Pompa MD at 19:07 EST Tel , Service support ,
--- NOTE | 2018-08-12 13:40 | RAD_ITS ---
STUDY: X-RAY - LEFT HAND REASON FOR EXAM: Male, 78 years old. Pain. Swelling. TECHNIQUE: 3 view(s) of the hand. COMPARISON: None. FINDINGS: No acute fracture or dislocation is seen. Moderately prominent degenerative changes seen of the second and third metacarpophalangeal joints. Mild degenerative changes seen of the interphalangeal joints of the digits. Normal mineralization. 2 mm metal foreign body in the soft tissues near the carpometacarpal joint of the thumb. Several tiny metal density suspected in the soft tissues of the mid to distal fifth digit. Soft tissues otherwise normal. RAD/Hand Min 3 Views IMPRESSION: No acute fractures or dislocations. Degenerative changes. Tiny metal foreign bodies. Electronically Signed: Dean Ayala MD at 16:16 EST , Service support ,
[2018-08-12 14:11] VITALS: BP 87/52; PULSE 79; RESP 18; TEMP 36.7; O2SAT 95
--- NOTE | 2018-08-12 15:29 | PN.NEURO_ITS ---
Patient Problems: Active and Suspected Problems Frequent falls (Acute) Elevated liver enzymes (Acute) Hyperglycemia (Acute) Subjective: No issues overnight. Discussed care with nursing staff. Discussed with daughter at bedside and son-in-law. Per daughter at baseline patient is quite active, lives alone, does drive, denies any falls at baseline and about 2 weeks ago had sinus infection for which he was treated with antibiotics and about 1 week ago fell in the bathroom and since then had falls and difficulty in walking, initia lly had tingling/numbness in the fingers and toes. Has PD and follows up with Dr. Reyna and per daughter he did not have any frequent falls prior to a week or so. MRI L spine done since admission showed small disc protrusion at L4-L5 - Physical Exam General: Cooperative HEENT: Normocephalic Neck: Supple Lungs: Normal air movement Cardiovascular: Normal S1, Normal S2 Abdomen: Bowel Sounds Present Extremities: No cyanosis Neurological: - - consious, awake, CN 2-12 grossly intact, power 5/5 right UE/LE, -5/5 left UE and +4/5 LE (limited by knee pain), denies any sensory loss, mild resting tremors left UE, mild rigidity left UE, Reflexes ++ B/L B/S/T/K/A, brisk in the UE as compared to the lower, denies any sensory loss, or cerebellar signs. Psych/Mental Status: Normal Affect Vital Signs Temp Pulse Resp BP Pulse Ox 98.0 F 79 18 87/52 L 95 08/12/18 14:11 08/12/18 14:11 08/12/18 14:11 08/12/18 14:11 08/12/18 14:11 Oxygen Delivery Method Room Air Weight: 79.3 kg Body Mass Index (BMI) 27.3 Intake and Output for Last 24 Hours 08/10/18 08/11/18 08/12/18 23:59 23:59 23:59 Intake Total 4017 / 4017 1540 / 1540 600 / 600 Output Total 2475 / 2475 1450 / 1450 900 / 900 Balance 1542 / 1542 90 / 90 -300 / -300 Medical Necessity - Tobacco Use Smoking Status: Never smoker Tobacco Use: Non-smoker Assessment/Plan All Active Problems Frequent falls (Acute) Elevated liver enzymes (Acute) Hyperglycemia (Acute) 78 yr M with PD admitted with falls, difficulty in walking. Impression PD Encephalopathy Plan -Check MRI brain and MRI C spine w/o contrast -MRI L spine reviewed -On Sinemet for PD -Labs reviewed- abnormal LFTS -Check Ammonia -Fall precautions -GI/DVT prophylaxis -PT/OT -Follow up with Dr. Reyna his Neurologist as outpatient -Please call with questions if any -Thank you for allowing us to participate in patients care and management.
--- NOTE | 2018-08-12 15:59 | CASEMGMT ---
Social Work Note SANKET spoke with Jillian at [facility] to clarify pt's discharge. Jillian states she will relay the referral to the right person that deals with SNF placements. SANKET met with pt's daughter and updated her that [facility] and this worker has submitted for pre-cert. Plan: [facility] pending pre-cert Diana Amador SUPERVISOR [employer]LLING [employer]ING, PATIENT SERVICES COORDINATOR
--- NOTE | 2018-08-12 16:04 | CASEMGMT ---
Social Work Note Green sheet on chart in the event pre-cert is obtained and pt is able to discharge. Plan: [facility] once pre-cert is obtained Diana Amador MSW, LEGAL BILLING SPECIALIST
--- NOTE | 2018-08-12 16:21 | CASEMGMT ---
Social Work Note SW placed a call to [facility] and left a message informing them that if they get approval for pt to call main number for [facility] as this worker is leaving for the day. Main number provided. Plan: [facility] pending pre-cert Diana Amador DECKER OPERATOR, WALL AND FLOOR TILER
[2018-08-12 16:42] VITALS: BP 139/72; PULSE 75; RESP 18; TEMP 36.2; O2SAT 97
[2018-08-12 20:35] VITALS: BP 115/65; PULSE 78; RESP 16; TEMP 36.3; O2SAT 95
[2018-08-13 02:35] VITALS: BP 123/80; PULSE 71; RESP 16; TEMP 36.9; O2SAT 98
[2018-08-13] MEDS: oxyCODONE 5 MG Tablet PO (06:00)
[2018-08-13] MEDS: Carbidopa/Levodopa 25/100 Tablet PO ×3 (06:00→18:15)
[2018-08-13] MEDS: Hydrocortisone 2.5% Crm 1 APPLIC TOPICAL ×3 (06:00→20:44)
[2018-08-13] MEDS: DiphenhydrAMINE 25 MG Capsule PO (06:21)
[2018-08-13 08:49] LABS: Absolute Lymphocyte Count 1.01 X10^3/ul (0.83-4.51); Absolute Neutrophil Count 2.2 X10^3/uL (2.0-7.7); Basophil# 0.13 X10^3/uL; Basophil% 3.1 % (0-1); Eosinophil# 0.25 X10^3/uL; Eosinophils% 5.9 % (0-5); Hematocrit 43.5 % (40-54); Hemoglobin 14.4 g/dl (13.0-16.5); Lymphocyte # 1.01 X10^3/ul (4.0); Lymphocyte % 23.7 % (19-41); Mean Corp Hgb Conc 33.1 g/gl (32-36); Mean Corpuscular Volume 93.5 fL (80-94); Mean Platelet Vol. 8.6 fl (6.2-12.0); Monocyte# 0.62 X10^3/uL; Monocyte% 14.6 % (0-10); Neutrophil # 2.22 X10^3/uL (2.7-7.7); POSITIVE COUNT NO; POSITIVE DIFFERENTIAL NO; POSITIVE MORPHOLOGY NO; Platelet Count 389 K/mm3 (150-450); RBC Distribution Width CV 13.1 % (11.6-14.6); RBC Distribution Width SD 43.6 fl (35.1-43.9); Red Blood Count 4.65 M/mm3 (4.6-6.2); White Blood Count 4.3 K/mm3 (4.4-11.0)
[2018-08-13 09:04] LABS: Anion Gap 9 (5-15); BUN 24 mg/dL (7-18); BUN/Creat Ratio 24.4 RATIO (10-20); Calcium,Total 8.4 mg/dL (8.5-10.1); Chloride 103 mmol/L (98-107); Creatinine, Serum 0.98 mg/dL (0.70-1.30); EST Glomerular Filtration Rate 78 mL/min (>60); Est Glom Filt Rate - Afr Amer 95 mL/min (>60); Estimated Creatinine Clearance 58.08 ml/min; Glucose 99 mg/dL (74-106); Potassium 4.2 mmol/L (3.5-5.1); Sodium Level 137 mmol/L (136-145)
[2018-08-13 09:19] VITALS: BP 128/72; PULSE 65; RESP 16; TEMP 36.6; O2SAT 95
[2018-08-13] MEDS: Senna/Docusate Sodium 1 Tablet 2 TABLET PO ×2 (10:01→20:44)
[2018-08-13] MEDS: Polyethylene Glycol 3350 17 GM PACKET PO (10:01)
[2018-08-13] MEDS: Enoxaparin 40 MG/0.4 ML Syringe SC (10:01)
--- NOTE | 2018-08-13 10:25 | PCM.PN.NEU ---
Patient Problems: Active and Suspected Problems Frequent falls (Acute) Elevated liver enzymes (Acute) Hyperglycemia (Acute) Subjective: debility, daughter reports very active until two weeks ago, uri, then fall. never any previous falls. - Physical Exam General: Alert, Oriented x3, Cooperative, No apparent distress Neurological: - - no hyporeflexic Vital Signs Temp Pulse Resp BP Pulse Ox 36.6 C 65 16 128/72 H 95 08/13/18 09:19 08/13/18 09:19 08/13/18 09:19 08/13/18 09:19 08/13/18 09:19 Oxygen Delivery Method Room Air Weight: 79.3 kg Body Mass Index (BMI) 27.3 Intake and Output for Last 24 Hours 08/11/18 08/12/18 08/13/18 23:59 23:59 23:59 Intake Total 1540 / 1540 600 / 600 300 / 300 Output Total 1450 / 1450 900 / 900 950 / 950 Balance 90 / 90 -300 / -300 -650 / -650 Laboratory Tests Past 24 Hrs 08/13/18 08/13/18 08:08 08:08 WBC 4.3 L RBC 4.65 Hgb 14.4 Hct 43.5 MCV 93.5 MCH 31.0 MCHC 33.1 RDW 13.1 RDW Differential 43.6 Plt Count 389 MPV 8.6 Immature Gran % (Auto) 0.700 Neut % (Auto) 52.0 Lymph % (Auto) 23.7 [place] % (Auto) 14.6 H Eos % (Auto) 5.9 H Baso % (Auto) 3.1 H Absolute Neuts (auto) 2.2 Absolute Lymphs (auto) 1.01 Total Counted Not Reportable Sodium 137 Potassium 4.2 Chloride 103 Carbon Dioxide 25.0 Anion Gap 9 BUN 24 H Creatinine 0.98 Estim Creat Clear Calc 58.08 Est GFR (MDRD) Af Amer 95 Est GFR (MDRD) Non-Af 78 BUN/Creatinine Ratio 24.4 H Glucose 99 Calcium 8.4 L MRI of the brain reviewed. No acute. He has atrophy and subcortical white matter disease which is chronic. MRI of the C-spine reviewed. Mild to moderate stenosis of the central spine but there does not appear to be significant cord impingement. Medical Necessity - Tobacco Use Smoking Status: Never smoker Tobacco Use: Non-smoker Assessment/Plan All Active Problems Frequent falls (Acute) Elevated liver enzymes (Acute) Hyperglycemia (Acute) Plan: debility due to pd, new history from daughter suspicious -Check Ammonia -Fall precautions -PT/OT -Follow up with Dr. Reyna his Neurologist as outpatient lp wednesday
--- NOTE | 2018-08-13 11:55 | PCM.PN.HOSP ---
Patient Problems: Active and Suspected Problems Frequent falls (Acute) Elevated liver enzymes (Acute) Hyperglycemia (Acute) Subjective: Patient seen and examined. He says he feels better today than yesterday. He had no complaints. Pain in his hand had resolved. He denies any fever or chills, any cough or chest pain, shortness of breath, abdominal pain, diarrhea or vomiting. Review of systems is otherwise negative. Labs and vitals reviewed. He is awaiting placement. Daughter was concerned about possibility of Guillain-Pedersen? syndrome and she said her father was much weaker than he was at home. Neurology already on board. Vitals/I&O's: Vital Signs Temp Pulse Resp BP Pulse Ox 97.8 F 65 16 128/72 H 95 08/13/18 09:19 08/13/18 09:19 08/13/18 09:19 08/13/18 09:19 08/13/18 09:19 Oxygen Delivery Method Room Air Weight: 174 lb 13.225 oz Body Mass Index (BMI) 27.3 Intake and Output for Last 24 Hours 08/11/18 08/12/18 08/13/18 23:59 23:59 23:59 Intake Total 1540 / 1540 600 / 600 300 / 300 Output Total 1450 / 1450 900 / 900 950 / 950 Balance 90 / 90 -300 / -300 -650 / -650 General: Alert, Oriented x3, Cooperative, No apparent distress HEENT: Atraumatic, PERRLA, EOMI, Normocephalic Oral: Moist Mucosa Neck: Supple, No JVD, Negative Carotid Bruits Lungs: Clear to auscultation, Normal air movement, No rhonchi, No wheeze, No rales Cardiovascular: Regular rate, Regular Rhythm, Normal S1, Normal S2, No murmurs Abdomen: Bowel Sounds Present, Soft, Non Tender, Non-Distended, No Hepato-splenomegaly Extremities: No clubbing, No cyanosis, No edema, Capillary Refill Less than 3 Seconds Skin: No rashes, No breakdown Musculoskeletal: No Tenderness to Palpation of Joints or Extremities Lymphatic: No Cervical, Supraclavicular, or Inguinal Adenopathy Neurological: Cranial nerves II-XII grossly intact, Neuro grossly intact Psych/Mental Status: Normal Affect, Appropriate, Alert and oriented to time, place, person, mood and affect Laboratory Results 08/13/18 08:08: WBC 4.3 L, RBC 4.65, Hgb 14.4, Hct 43.5, MCV 93.5, MCH 31.0, MCHC 33.1, RDW 13.1, RDW Differential 43.6, Plt Count 389, MPV 8.6, Immature Gran % (Auto) 0.700, Neut % (Auto) 52.0, Lymph % (Auto) 23.7, [place] % (Auto) 14.6 H, Eos % (Auto) 5.9 H, Baso % (Auto) 3.1 H, Absolute Neuts (auto) 2.2, Absolute Lymphs (auto) 1.01, Total Counted Not Reportable 08/13/18 08:08: Sodium 137, Potassium 4.2, Chloride 103, Carbon Dioxide 25.0, Anion Gap 9, BUN 24 H, Creatinine 0.98, Estim Creat Clear Calc 58.08, Est GFR (MDRD) Af Amer 95, Est GFR (MDRD) Non-Af 78, BUN/Creatinine Ratio 24.4 H, Glucose 99, Calcium 8.4 L Diagnostic Data Brain CT 08/08/18 16:15 IMPRESSION: 1. No acute process. 2. Mild microvascular ischemic changes. Atrophy. Electronically Signed: Jo Pompa MD at 17:22 EST Tel , Service support , Chest X-Ray 08/08/18 17:05 IMPRESSION: No acute process. Electronically Signed: Jo Pompa MD at 17:26 EST Tel , Service support , Lumbar Spine X-Ray 08/08/18 18:40 IMPRESSION: 1. No evidence of trauma. 2. Mild degenerative disc changes. Electronically Signed: Jo Pompa MD at 19:22 EST Tel , Service support , Thoracic Spine X-Ray 08/08/18 18:40 IMPRESSION: 1. No acute process. Electronically Signed: Jo Pompa MD at 19:18 EST Tel , Service support , Lumbar Spine MRI 08/09/18 12:02 IMPRESSION: 1. No trauma or spinal stenosis. 2. Noncompressive L4-5 disc protrusion. Electronically Signed: Jo Pompa MD at 16:41 EST Tel , Service support , ADDENDUM: 08/10/18 2328 Cervical Spine MRI 08/12/18 12:40 IMPRESSION: 1. No evidence of trauma. 2. Borderline C4-5 canal stenosis. 3. Multilevel foraminal stenosis, greatest at C4-5 and C5-6. Electronically Signed: Jo Pompa MD at 19:07 EST Tel , Service support , Hand X-Ray 08/12/18 13:40 IMPRESSION: No acute fractures or dislocations. Degenerative changes. Tiny metal foreign bodies. Electronically Signed: Dean Ayala MD at 16:16 EST , Service support , Current Medications Al Hydroxide/Mg Hydroxide (Mylanta Ii) 30 ml PO Q6H PRN PRN PRN Reason: Gastric burning Bisacodyl (Dulcolax) 10 mg RECTAL DAILY PRN PRN Reason: constipation Last Admin: 08/10/18 22:54 Dose: 10 mg Carbidopa/Levodopa (Sinemet) 2 tablet PO TIDAC PIPER Last Admin: 08/13/18 06:00 Dose: 2 tablet Cyclobenzaprine HCl (Flexeril) 5 mg PO BID PRN PRN Reason: muscle strain, sprain Last Admin: 08/10/18 22:14 Dose: 5 mg Diphenhydramine HCl (Benadryl) 25 mg PO TID PRN PRN PRN Reason: ITCHING Last Admin: 08/13/18 06:21 Dose: 25 mg Enoxaparin Sodium (Lovenox) 40 mg SC DAILY@1000 PIPER Last Admin: 08/13/18 10:01 Dose: 40 mg Hydrocortisone (Hytone) 1 applic TOPICAL TID [facility]; Protocol Last Admin: 08/13/18 06:00 Dose: 1 applicatio Magnesium Hydroxide (Milk Of Magnesia) 30 ml PO DAILY PRN PRN PRN Reason: Constipation Last Admin: 08/10/18 11:45 Dose: 30 ml Morphine Sulfate () 2 - 4 mg IV Q4H PRN PRN PRN Reason: PAIN Morphine Sulfate () 2 - 4 mg IV Q4H PRN PRN PRN Reason: PAIN Last Admin: 08/08/18 21:51 Dose: 4 mg Ondansetron HCl (Zofran) 4 mg IV Q8H PRN PRN PRN Reason: NAUSEA Oxycodone HCl (Oxyir) 5 - 10 mg PO Q4H PRN PRN PRN Reason: SEVERE PAIN (6-10/10) Last Admin: 08/13/18 06:00 Dose: 10 mg Polyethylene Glycol (Miralax) 17 gm PO DAILY [facility] Last Admin: 08/13/18 10:01 Dose: 17 gm Promethazine HCl (Phenergan) 12.5 mg IV Q6H PRN PRN PRN Reason: NAUSEA/VOMITING Senna/Docusate Sodium (Senokot-S, Elsie-Colace) 2 tablet PO BID [facility] Last Admin: 08/13/18 10:01 Dose: 2 tablet Sodium Chloride () 5 - 30 ml IV UD PRN PRN Reason: SALINE FLUSH Last Admin: 08/10/18 05:23 Dose: 20 ml Medical Necessity - Tobacco Use Smoking Status: Never smoker Tobacco Use: Non-smoker Assessment/Plan All Active Problems Frequent falls (Acute) Elevated liver enzymes (Acute) Hyperglycemia (Acute) 1. Acute intractable back pain due to mechanical falls pain is better controlled now. PT/OT on board case management on board had MRI of lumbar spine which showed noncompressive L4-5 disc protrusion awaiting placement fall precautions on flexeril and morphine 2. Worsening debility due to Parkinson's disease Likely contributes to recurrent falls neuro on board; daughter was concerned about possibility of Guillain Seanor syndrome as she felt he was much weaker than previously. neuro ordered MRI of the brain and cervical spine which showed multilevel foraminal stenosis at C4-C5 and C5-C6 and canal stenosis at C4-5 PT/OT on board. On Sinemet. will check ammonia level, per neuro rec's 3. Hyperglycemia: Resolved. 4. Abnormal LFTs: stable cause is not clear; patient is asymptomatic will monitor 5. Leucopenia: white cell count is 4.3 today. Stable. Will mnitor DVT prophylaxis: lovenox Code status: full code Disposition: awaiting placement Code Visit Inpatient E&M: 59199 Subs Hosp L2 OBSV E&M: 55438 Subsequent observation care L2
--- NOTE | 2018-08-13 11:59 | PN_ITS ---
Patient Problems: Active and Suspected Problems Frequent falls (Acute) Elevated liver enzymes (Acute) Hyperglycemia (Acute) Subjective: Patient seen and examined. He says he feels better today than yesterday. He had no complaints. Pain in his hand had resolved. He denies any fever or chills, any cough or chest pain, shortness of breath, abdominal pain, diarrhea or vomiting. Review of systems is otherwise negative. Labs and vitals reviewed. He is awaiting placement. Daughter was concerned about possibility of Guillain-Pedersen? syndrome and she said her father was much weaker than he was at home. Neurology already on board. Vitals/I&O's: Vital Signs Temp Pulse Resp BP Pulse Ox 97.8 F 65 16 128/72 H 95 08/13/18 09:19 08/13/18 09:19 08/13/18 09:19 08/13/18 09:19 08/13/18 09:19 Oxygen Delivery Method Room Air Weight: 174 lb 13.225 oz Body Mass Index (BMI) 27.3 Intake and Output for Last 24 Hours 08/11/18 08/12/18 08/13/18 23:59 23:59 23:59 Intake Total 1540 / 1540 600 / 600 300 / 300 Output Total 1450 / 1450 900 / 900 950 / 950 Balance 90 / 90 -300 / -300 -650 / -650 General: Alert, Oriented x3, Cooperative, No apparent distress HEENT: Atraumatic, PERRLA, EOMI, Normocephalic Oral: Moist Mucosa Neck: Supple, No JVD, Negative Carotid Bruits Lungs: Clear to auscultation, Normal air movement, No rhonchi, No wheeze, No rales Cardiovascular: Regular rate, Regular Rhythm, Normal S1, Normal S2, No murmurs Abdomen: Bowel Sounds Present, Soft, Non Tender, Non-Distended, No Hepato- splenomegaly Extremities: No clubbing, No cyanosis, No edema, Capillary Refill Less than 3 Seconds Skin: No rashes, No breakdown Musculoskeletal: No Tenderness to Palpation of Joints or Extremities Lymphatic: No Cervical, Supraclavicular, or Inguinal Adenopathy Neurological: Cranial nerves II-XII grossly intact, Neuro grossly intact Psych/Mental Status: Normal Affect, Appropriate, Alert and oriented to time, place, person, mood and affect Laboratory Results 08/13/18 08:08: WBC 4.3 L, RBC 4.65, Hgb 14.4, Hct 43.5, MCV 93.5, MCH 31.0, MCHC 33.1, RDW 13.1, RDW Differential 43.6, Plt Count 389, MPV 8.6, Immature Gran % (Auto) 0.700, Neut % (Auto) 52.0, Lymph % (Auto) 23.7, [place] % (Auto) 14.6 H, Eos % (Auto) 5.9 H, Baso % (Auto) 3.1 H, Absolute Neuts (auto) 2.2, Absolute Lymphs (auto) 1.01, Total Counted Not Reportable 08/13/18 08:08: Sodium 137, Potassium 4.2, Chloride 103, Carbon Dioxide 25.0, Anion Gap 9, BUN 24 H, Creatinine 0.98, Estim Creat Clear Calc 58.08, Est GFR (MDRD) Af Amer 95, Est GFR (MDRD) Non-Af 78, BUN/Creatinine Ratio 24.4 H, Glucose 99, Calcium 8.4 L Diagnostic Data Brain CT 08/08/18 16:15 IMPRESSION: 1. No acute process. 2. Mild microvascular ischemic changes. Atrophy. Electronically Signed: Jo Pompa MD at 17:22 EST Tel , Service support , Chest X-Ray 08/08/18 17:05 IMPRESSION: No acute process. Electronically Signed: Jo Pompa MD at 17:26 EST Tel , Service support , Lumbar Spine X-Ray 08/08/18 18:40 IMPRESSION: 1. No evidence of trauma. 2. Mild degenerative disc changes. Electronically Signed: Jo Pompa MD at 19:22 EST Tel , Service support , Thoracic Spine X-Ray 08/08/18 18:40 IMPRESSION: 1. No acute process. Electronically Signed: Jo Pompa MD at 19:18 EST Tel , Service support , Lumbar Spine MRI 08/09/18 12:02 IMPRESSION: 1. No trauma or spinal stenosis. 2. Noncompressive L4-5 disc protrusion. Electronically Signed: Jo Pompa MD at 16:41 EST Tel , Service support , ADDENDUM: 08/10/18 2328 Cervical Spine MRI 08/12/18 12:40 IMPRESSION: 1. No evidence of trauma. 2. Borderline C4-5 canal stenosis. 3. Multilevel foraminal stenosis, greatest at C4-5 and C5-6. Electronically Signed: Jo Pompa MD at 19:07 EST Tel , Service support , Hand X-Ray 08/12/18 13:40 IMPRESSION: No acute fractures or dislocations. Degenerative changes. Tiny metal foreign bodies. Electronically Signed: Dean Ayala MD at 16:16 EST , Service support , Current Medications Al Hydroxide/Mg Hydroxide (Mylanta Ii) 30 ml PO Q6H PRN PRN PRN Reason: Gastric burning Bisacodyl (Dulcolax) 10 mg RECTAL DAILY PRN PRN Reason: constipation Last Admin: 08/10/18 22:54 Dose: 10 mg Carbidopa/Levodopa (Sinemet) 2 tablet PO TIDAC [facility] Last Admin: 08/13/18 06:00 Dose: 2 tablet Cyclobenzaprine HCl (Flexeril) 5 mg PO BID PRN PRN Reason: muscle strain, sprain Last Admin: 08/10/18 22:14 Dose: 5 mg Diphenhydramine HCl (Benadryl) 25 mg PO TID PRN PRN PRN Reason: ITCHING Last Admin: 08/13/18 06:21 Dose: 25 mg Enoxaparin Sodium (Lovenox) 40 mg SC DAILY@1000 [facility] Last Admin: 08/13/18 10:01 Dose: 40 mg Hydrocortisone (Hytone) 1 applic TOPICAL TID [facility]; Protocol Last Admin: 08/13/18 06:00 Dose: 1 applicatio Magnesium Hydroxide (Milk Of Magnesia) 30 ml PO DAILY PRN PRN PRN Reason: Constipation Last Admin: 08/10/18 11:45 Dose: 30 ml Morphine Sulfate () 2 - 4 mg IV Q4H PRN PRN PRN Reason: PAIN Morphine Sulfate () 2 - 4 mg IV Q4H PRN PRN PRN Reason: PAIN Last Admin: 08/08/18 21:51 Dose: 4 mg Ondansetron HCl (Zofran) 4 mg IV Q8H PRN PRN PRN Reason: NAUSEA Oxycodone HCl (Oxyir) 5 - 10 mg PO Q4H PRN PRN PRN Reason: SEVERE PAIN (6-10/10) Last Admin: 08/13/18 06:00 Dose: 10 mg Polyethylene Glycol (Miralax) 17 gm PO DAILY [facility] Last Admin: 08/13/18 10:01 Dose: 17 gm Promethazine HCl (Phenergan) 12.5 mg IV Q6H PRN PRN PRN Reason: NAUSEA/VOMITING Senna/Docusate Sodium (Senokot-S, Elsie-Colace) 2 tablet PO BID [facility] Last Admin: 08/13/18 10:01 Dose: 2 tablet Sodium Chloride () 5 - 30 ml IV UD PRN PRN Reason: SALINE FLUSH Last Admin: 08/10/18 05:23 Dose: 20 ml Medical Necessity - Tobacco Use Smoking Status: Never smoker Tobacco Use: Non-smoker Assessment/Plan All Active Problems Frequent falls (Acute) Elevated liver enzymes (Acute) Hyperglycemia (Acute) 1. Acute intractable back pain due to mechanical falls * pain is better controlled now. 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 Worsening debility due to Parkinson's disease * Likely contributes to recurrent falls * neuro on board; daughter was concerned about possibility of Guillain [place] syndrome as she felt he was much weaker than previously. 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 On Sinemet. * will check ammonia level, per neuro rec's * 3. Hyperglycemia: * Resolved. * 4. Abnormal LFTs: * stable * cause is not clear; patient is asymptomatic * will monitor * 5. Leucopenia: * white cell count is 4.3 today. Stable. Will mnitor * DVT prophylaxis: lovenox Code status: full code Disposition: awaiting placement Code Visit Inpatient E&M: 31756 Subs Hosp L2 OBSV E&M: 58033 Subsequent observation care L2
--- NOTE | 2018-08-13 12:21 | PN.NEURO_ITS ---
Patient Problems: Active and Suspected Problems Frequent falls (Acute) Elevated liver enzymes (Acute) Hyperglycemia (Acute) Subjective: daughter who is an rn, is present, last saw him in july, but she says he had a uri a few weeks ago, then became week. two weeks ago they say he was helping tear down a barn, active, mowing with a zero turn mower. no previous falls ever. - Physical Exam General: Alert, Oriented x3 Vital Signs Temp Pulse Resp BP Pulse Ox 36.6 C 65 16 128/72 H 95 08/13/18 09:19 08/13/18 09:19 08/13/18 09:19 08/13/18 09:19 08/13/18 09:19 Oxygen Delivery Method Room Air Weight: 79.3 kg Body Mass Index (BMI) 27.3 Intake and Output for Last 24 Hours 08/11/18 08/12/18 08/13/18 23:59 23:59 23:59 Intake Total 1540 / 1540 600 / 600 300 / 300 Output Total 1450 / 1450 900 / 900 950 / 950 Balance 90 / 90 -300 / -300 -650 / -650 Laboratory Tests Past 24 Hrs 08/13/18 08/13/18 08:08 08:08 WBC 4.3 L RBC 4.65 Hgb 14.4 Hct 43.5 MCV 93.5 MCH 31.0 MCHC 33.1 RDW 13.1 RDW Differential 43.6 Plt Count 389 MPV 8.6 Immature Gran % (Auto) 0.700 Neut % (Auto) 52.0 Lymph % (Auto) 23.7 [place] % (Auto) 14.6 H Eos % (Auto) 5.9 H Baso % (Auto) 3.1 H Absolute Neuts (auto) 2.2 Absolute Lymphs (auto) 1.01 Total Counted Not Reportable Sodium 137 Potassium 4.2 Chloride 103 Carbon Dioxide 25.0 Anion Gap 9 BUN 24 H Creatinine 0.98 Estim Creat Clear Calc 58.08 Est GFR (MDRD) Af Amer 95 Est GFR (MDRD) Non-Af 78 BUN/Creatinine Ratio 24.4 H Glucose 99 Calcium 8.4 L Medical Necessity - Tobacco Use Smoking Status: Never smoker Tobacco Use: Non-smoker Assessment/Plan All Active Problems Frequent falls (Acute) Elevated liver enzymes (Acute) Hyperglycemia (Acute)
[2018-08-13 15:47] VITALS: BP 110/63; PULSE 72; RESP 16; TEMP 36.7; O2SAT 98
[2018-08-13 21:45] VITALS: BP 144/84; PULSE 80; RESP 16; TEMP 36.6; O2SAT 94
[2018-08-14 03:45] VITALS: BP 137/69; PULSE 94; RESP 18; TEMP 37.1; O2SAT 94
[2018-08-14] MEDS: DiphenhydrAMINE 25 MG Capsule PO (04:30)
[2018-08-14] MEDS: Hydrocortisone 2.5% Crm 1 APPLIC TOPICAL ×3 (05:08→22:16)
[2018-08-14] MEDS: oxyCODONE 5 MG Tablet PO (05:10)
[2018-08-14 06:48] LABS: Absolute Lymphocyte Count 1.15 X10^3/ul (0.83-4.51); Absolute Neutrophil Count 2.1 X10^3/uL (2.0-7.7); Basophil# 0.09 X10^3/uL; Basophil% 2.2 % (0-1); Eosinophil# 0.23 X10^3/uL; Eosinophils% 5.7 % (0-5); Hematocrit 44.3 % (40-54); Hemoglobin 14.2 g/dl (13.0-16.5); Lymphocyte # 1.15 X10^3/ul (4.0); Lymphocyte % 28.4 % (19-41); Mean Corp Hgb Conc 32.1 g/gl (32-36); Mean Corpuscular Hgb 30.2 pg (27.0-32.0); Mean Corpuscular Volume 94.3 fL (80-94); Mean Platelet Vol. 8.9 fl (6.2-12.0); Monocyte# 0.46 X10^3/uL; Monocyte% 11.4 % (0-10); Neutrophil % 51.8 % (47-70); Platelet Count 283 K/mm3 (150-450); RBC Distribution Width CV 13.1 % (11.6-14.6); RBC Distribution Width SD 45.3 fl (35.1-43.9); White Blood Count 4.1 K/mm3 (4.4-11.0)
[2018-08-14 07:03] LABS: POSITIVE COUNT NO; POSITIVE DIFFERENTIAL NO; POSITIVE MORPHOLOGY NO
[2018-08-14 07:14] LABS: BUN 20 mg/dL (7-18); Glucose 94 mg/dL (74-106)
[2018-08-14 07:15] LABS: Anion Gap 9 (5-15); BUN/Creat Ratio 23.6 RATIO (10-20); Calcium,Total 8.5 mg/dL (8.5-10.1); Chloride 104 mmol/L (98-107); Creatinine, Serum 0.85 mg/dL (0.70-1.30); EST Glomerular Filtration Rate 93 mL/min (>60); Est Glom Filt Rate - Afr Amer 112 mL/min (>60); Estimated Creatinine Clearance 66.96 ml/min; Potassium 4.3 mmol/L (3.5-5.1); Sodium Level 137 mmol/L (136-145)
[2018-08-14 07:18] VITALS: O2SAT 96
[2018-08-14] MEDS: Carbidopa/Levodopa 25/100 Tablet PO ×3 (07:31→16:22)
[2018-08-14 08:42] VITALS: BP 116/68; PULSE 42; RESP 16; TEMP 36.4; O2SAT 93
[2018-08-14] MEDS: Acetaminophen 325 MG Tablet 650 MG PO (08:53)
[2018-08-14] MEDS: Polyethylene Glycol 3350 17 GM PACKET PO (08:54)
[2018-08-14] MEDS: Senna/Docusate Sodium 1 Tablet 2 TABLET PO (08:54)
--- NOTE | 2018-08-14 10:48 | PN_ITS ---
Patient Problems: Active and Suspected Problems Frequent falls (Acute) Elevated liver enzymes (Acute) Hyperglycemia (Acute) Subjective: Patient seen and examined. He had no complaints and had a good night sleep. He denied any fever or chills, cough or chest pain, shortness of breath, abdominal pain, diarrhea vomiting. Review of systems otherwise negative. Neurology on board. Labs and vitals reviewed. Vitals/I&O's: Vital Signs Temp Pulse Resp BP Pulse Ox 97.6 F L 42 L 16 116/68 93 08/14/18 08:42 08/14/18 08:42 08/14/18 08:42 08/14/18 08:42 08/14/18 08:42 Oxygen Delivery Method Room Air Weight: 174 lb 13.225 oz Body Mass Index (BMI) 27.3 Intake and Output for Last 24 Hours 08/12/18 08/13/18 08/14/18 23:59 23:59 23:59 Intake Total 600 / 600 400 / 400 400 / 400 Output Total 900 / 900 2100 / 2100 375 / 375 Balance -300 / -300 -1700 / -1700 25 General: Alert, Oriented x3, Cooperative, No apparent distress HEENT: Atraumatic, PERRLA, EOMI, Normocephalic Oral: Moist Mucosa Neck: Supple, No JVD, Negative Carotid Bruits Lungs: Clear to auscultation, Normal air movement, No rhonchi, No wheeze, No rales Cardiovascular: Regular rate, Regular Rhythm, Normal S1, Normal S2, No murmurs Abdomen: Bowel Sounds Present, Soft, Non Tender, Non-Distended, No Hepato- splenomegaly Extremities: No clubbing, No cyanosis, No edema, Capillary Refill Less than 3 Seconds Skin: No rashes, No breakdown Musculoskeletal: No Tenderness to Palpation of Joints or Extremities Lymphatic: No Cervical, Supraclavicular, or Inguinal Adenopathy Neurological: Cranial nerves II-XII grossly intact, Neuro grossly intact Psych/Mental Status: Normal Affect, Appropriate, Alert and oriented to time, place, person, mood and affect Laboratory Results 08/14/18 06:25: WBC 4.1 L, RBC 4.70, Hgb 14.2, Hct 44.3, MCV 94.3 H, MCH 30.2, MCHC 32.1, RDW 13.1, RDW Differential 45.3 H, Plt Count 283, MPV 8.9, Immature Gran % (Auto) 0.500, Neut % (Auto) 51.8, Lymph % (Auto) 28.4, [place] % (Auto) 11.4 H, Eos % (Auto) 5.7 H, Baso % (Auto) 2.2 H, Absolute Neuts (auto) 2.1, Absolute Lymphs (auto) 1.15, Total Counted Not Reportable 08/14/18 06:25: Sodium 137, Potassium 4.3, Chloride 104, Carbon Dioxide 24.0, Anion Gap 9, BUN 20 H, Creatinine 0.85, Estim Creat Clear Calc 66.96, Est GFR (MDRD) Af Amer 112, Est GFR (MDRD) Non-Af 93, BUN/Creatinine Ratio 23.6 H, Glu cose 94, Calcium 8.5 08/14/18 06:25: Ammonia 26.0 Current Medications Acetaminophen (Tylenol) 650 mg PO Q6H PRN PRN PRN Reason: PAIN Last Admin: 08/14/18 08:53 Dose: 650 mg Al Hydroxide/Mg Hydroxide (Mylanta Ii) 30 ml PO Q6H PRN PRN PRN Reason: Gastric burning Bisacodyl (Dulcolax) 10 mg RECTAL DAILY PRN PRN Reason: constipation Last Admin: 08/10/18 22:54 Dose: 10 mg Carbidopa/Levodopa (Sinemet) 2 tablet PO TIDAC [facility] Last Admin: 08/14/18 07:31 Dose: 2 tablet Cyclobenzaprine HCl (Flexeril) 5 mg PO BID PRN PRN Reason: muscle strain, sprain Last Admin: 08/10/18 22:14 Dose: 5 mg Diphenhydramine HCl (Benadryl) 25 mg PO TID PRN PRN PRN Reason: ITCHING Last Admin: 08/14/18 04:30 Dose: 25 mg Enoxaparin Sodium (Lovenox) 40 mg SC DAILY@1000 [facility] Last Admin: 08/13/18 10:01 Dose: 40 mg Hydrocortisone (Hytone) 1 applic TOPICAL TID [facility]; Protocol Last Admin: 08/14/18 05:08 Dose: 1 applicatio Magnesium Hydroxide (Milk Of Magnesia) 30 ml PO DAILY PRN PRN PRN Reason: Constipation Last Admin: 08/10/18 11:45 Dose: 30 ml Morphine Sulfate () 2 - 4 mg IV Q4H PRN PRN PRN Reason: PAIN Morphine Sulfate () 2 - 4 mg IV Q4H PRN PRN PRN Reason: PAIN Last Admin: 08/08/18 21:51 Dose: 4 mg Ondansetron HCl (Zofran) 4 mg IV Q8H PRN PRN PRN Reason: NAUSEA Oxycodone HCl (Oxyir) 5 - 10 mg PO Q4H PRN PRN PRN Reason: SEVERE PAIN (6-1010) Last Admin: 08/14/18 05:10 Dose: 5 mg Polyethylene Glycol (Miralax) 17 gm PO DAILY [facility] Last Admin: 08/14/18 08:54 Dose: 17 gm Promethazine HCl (Phenergan) 12.5 mg IV Q6H PRN PRN PRN Reason: NAUSEA/VOMITING Senna/Docusate Sodium (Senokot-S, Elsie-Colace) 2 tablet PO BID [facility] Last Admin: 08/14/18 08:54 Dose: 2 tablet Sodium Chloride () 5 - 30 ml IV UD PRN PRN Reason: SALINE FLUSH Last Admin: 08/10/18 05:23 Dose: 20 ml Medical Necessity - Tobacco Use Smoking Status: Never smoker Tobacco Use: Non-smoker Assessment/Plan All Active Problems Frequent falls (Acute) Elevated liver enzymes (Acute) Hyperglycemia (Acute) 1. Acute intractable back pain due to mechanical falls * pain is better controlled now. 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 Worsening debility due to Parkinson's disease * Likely contributes to recurrent falls * neuro on board; daughter was concerned about possibility of Guillain [place] syndrome as she felt he was much weaker than previously. 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 On Sinemet. * ammonia level was only 26 * will monitor * 3. Hyperglycemia: * Resolved. * 4. Abnormal LFTs: * stable * cause is not clear; patient is asymptomatic * will monitor * 5. Leucopenia: * white cell count is 4.1 today. Stable. Will mnitor * DVT prophylaxis: lovenox Code status: full code Disposition: awaiting placement Code Visit Inpatient E&M: 25779 Subs Hosp L2
[2018-08-14] MEDS: Enoxaparin 40 MG/0.4 ML Syringe SC (11:57)
[2018-08-14 14:47] VITALS: BP 127/81; PULSE 84; RESP 18; TEMP 36.6; O2SAT 98
[2018-08-14 20:04] VITALS: BP 123/63; PULSE 76; RESP 18; TEMP 36.3; O2SAT 94
[2018-08-15] VITALS (12 sets, daily range): BP systolic 102–137; BP diastolic 58–87; PULSE 68–95; RESP 14–22; TEMP 36.4–36.7; O2SAT 93–98
[2018-08-15] MEDS: oxyCODONE 5 MG Tablet PO ×2 (01:11→05:49)
[2018-08-15] MEDS: Hydrocortisone 2.5% Crm 1 APPLIC TOPICAL ×3 (05:49→22:41)
[2018-08-15] MEDS: Acetaminophen 325 MG Tablet 650 MG PO (05:50)
--- NOTE | 2018-08-15 06:00 | RAD_ITS ---
PROCEDURE: Fluoroscopic guided Lumbar Puncture. DATE: August 15, 2018. CLINICAL INDICATION: Lower extremity weakness. PHYSICIAN: Greg Medrano M.D. MEDICATIONS: 1% lidocaine administered subcutaneously for local anesthesia. ACCESS SITE: Lower posterior back. NEEDLE: 22-gauge spinal needle. SPECIMEN: Approximately 13 mL clear]CSF fluid. FLUOROSCOPY TIME (if supplied): (0:45) minutes/seconds COMPLICATIONS: None immediate. The risks, benefits, and alternatives to the procedure were explained to the patient. The specific risks of bleeding, infection, and neurovascular injury were detailed and accepted. Witnessed informed consent was obtained. The patient was placed on the fluoroscopic table in the prone position. The level for needle entry was determined and marked. The overlying skin was cleaned and prepped in the usual sterile fashion. 2% lidocaine was administered subcutaneously for local anesthesia. Under fluoroscopic guidance a 22-gauge spinal needle was advanced. The thecal sac was entered at the L3- L4 vertebral level. The inner stylet was removed. There was spontaneous flow of clear CSF fluid. The patient was placed in a reversed Trendelenburg position. Approximately 13 mL of cerebrospinal fluid was collected using gravity. The specimen was collected and submitted to the laboratory for further evaluation. The needle was withdrawn,. Hemostasis was achieved and a sterile dressing placed. The patient tolerated the procedure well without any immediate complications. The patient was placed supine with head elevated and returned to the floor in stable condition. RAD/Fluoro Guided Lumbar Puncture IMPRESSION: Successful fluoroscopic-guided lumbar puncture. Electronically Signed: Greg Medrano MD at 11:08 EST Tel [phone], Service support ,
[2018-08-15] MEDS: Carbidopa/Levodopa 25/100 Tablet PO ×3 (06:01→16:11)
[2018-08-15 06:13] LABS: Anion Gap 8 (5-15); BUN 20 mg/dL (7-18); BUN/Creat Ratio 21.9 RATIO (10-20); Calcium,Total 8.8 mg/dL (8.5-10.1); Chloride 102 mmol/L (98-107); Creatinine, Serum 0.92 mg/dL (0.70-1.30); EST Glomerular Filtration Rate 85 mL/min (>60); Est Glom Filt Rate - Afr Amer 103 mL/min (>60); Estimated Creatinine Clearance 61.87 ml/min; Glucose 95 mg/dL (74-106); Potassium 4.3 mmol/L (3.5-5.1); Sodium Level 137 mmol/L (136-145)
[2018-08-15 08:32] LABS: Partial Thromboplast Time 27.3 Seconds (24.1-36.2); Prothrombin Time (Protime)PT. 13.2 SECONDS (11.7-14.9)
--- NOTE | 2018-08-15 10:00 | CASEMGMT ---
Social Work Note SW received message that pt will be on IVIG for 4 days. SANKET placed a call to Jo in admissions at [facility] and informed her of this. Per Jo they are able to still accept pt and can do IVIG while pt is there. SANKET updated physician of this. SW was updated that pt will be on 25 grams of IVIG for 4 days. SANKET placed a call to Jo in admissions and updated her on this. Jo informed this worker to have the nurse call report and to provide this information when the nurse calls report. Jo provided nurse to nurse number at [phone]. Diana Amador COMMISSIONS COORDINATOR, VP RESPIRATORY
--- NOTE | 2018-08-15 10:24 | CASEMGMT ---
Social Work Note SW received message from [facility] stating they approved for pt for SNF placement at discharge. This message was sent on Wednesday and per [facility] the approval from Wednesday is good for four days. SW updated physician of this. Per physician pt is getting procedure done today and pending on the procedure pt may discharge later today or tomorrow. SW will have to check with MMO if pt stays today if pre-cert will still be good for tomorrow. SANKET spoke with Jo at [facility] who states she also got approval for SNF. SANKET updated Jo that pt will be getting a procedure done today and pending on the results will determine if pt will discharge today or tomorrow. Jo provided number for nurse to nurse report [phone]. Plan: [facility] TCU/Swing beds once medically cleared Diana Amador AUTO HEADLIGHT MECHANIC, BAND SAW OPERATOR CAKE CUTTING
[2018-08-15 10:29] LABS: Body Fluid Mononuclear WBC # 0.013 10^3/uL; Total Cell Count CSF 0.013 10^3/uL (0.000-0.000); White Count, CSF 0.013 10^3/uL (0.000-0.000)
[2018-08-15 10:44] LABS: Appearance CSF (character) CLEAR (Clear); Auto B Fluid Analyzer BKGD Ct COUNTS W/IN LIMITS (W/IN LIMITS); Body Fluid QC Type(s) BF1Q; CSF Color COLORLESS (Colorless); RBC Count, Spinal Fluid 13 /mm-3 (None seen); Tested Tube # 4
[2018-08-15 11:08] LABS: Glucose Spinal Fluid 53 mg/dL (40-75)
--- NOTE | 2018-08-15 11:19 | CYSPIN_PTH ---
PATIENT: CHAD ALCANTARA LOC: [facility] U#:[id number] AGE/SX: 78/M ROOM: [facility]325 RE08/15/[address]: Dr. Palmer Mitchell DO : 1940 BED: 1 DIS: 08/19/2018 SPEC #: [id number] RECD: 08/16/18 10:00 STATUS: ABIDA REQ #: [id number] YUKO: 08/15/18 11:[address]: Palmer Mitchell DEPT: CYTOLOGY RECD BY: Jorge Hendrix ENTERED: 08/16/18 10:00 SP TYPE: CYSPIN FL OTHR DR: MD Dr. Sade Miller MD Dr. Tai Chi Kwok, MD Tissues: Cerebrospinal Fluid Procedures: Pap Stain (control) Special Stain Group II Special Stain Group I AFB Stain (control) Cytospin Fluid HEADER OPERATION: Not noted PRE-OP DIAGNOSIS: Intractable pain TISSUE SUBMITTED: CSF DIAGNOSIS CYTOLOGY CSF flow for cytology (Cytospin): Negative for malignant cells. Negative for acid fast bacilli. AM:maría 08/17/18 COMMENT The specimen is virtually acellular. AFB stain with matched control supports the above diagnosis. CYTOLOGY STUDY Slides are reviewed. CYTOLOGY GROSS Received is 5 ml of clear colorless fluid labeled with the patient's name and and designated per the requisition as CSF. Submitted for cytology. Tod 08/16/18 TC: 5 CPT: 51934 x1
--- NOTE | 2018-08-15 11:52 | PCM.TXEXTCAR ---
- Diet 08/08/18 20:35 Diet: Regular Diet Food consistency:: Regular Liquid Consistency:: Regular/Thin Is pt able to select menu?: Yes - Routine Orders/Code Status Enema Type: Fleetz Enema Frequency: Daily PRN Suppository Type: Dulcolax 10mg Suppository Frequency: Daily PRN O2 Frequency: PRN Keep PO Greater than or Equal to (%): 92 - Wound(s) left knee Wound Type: Abrasion rt flank Wound Type: Abrasion - Therapies Weight Bearing: Weight bearing as tolerated Physical Therapy: Eval and Treat Occupational Therapy: Eval and Treat - Allergies/Procedures Done in Hospital Allergies/Adverse Reactions: Allergies No Known Allergies Allergy (Verified 08/08/18 15:13) Procedures: - - lumbar puncture - Type of Care/Length of Stay Estimated LOS: Convalescent Care Less Than 30 days Type of Care Needed: Skilled Rehab Potential: Fair Prognosis: Fair - Additional Orders/Day of Discharge Day of Discharge: 08/15/18 - Follow Up Care Primary Care Physician: Get Lin Chi, MD [Primary Care Provider] - Please follow up with your Primary Care Physician in: 1 week Please Follow Up With: Taz Young MD When: 1-2 weeks
--- NOTE | 2018-08-15 11:56 | DS.PCM_ITS ---
Discharge Date and Diagnosis - Problem List Patient Problems: Active and Suspected Problems Frequent falls (Acute) Elevated liver enzymes (Acute) Hyperglycemia (Acute) Date of Admission: 08/08/18 Date of Discharge: 08/15/18 - Primary Discharge Diagnosis Active and Suspected Problems Frequent falls (Acute) Elevated liver enzymes (Acute) Hyperglycemia (Acute) - Secondary Discharge Diagnosis Chronic Problems Parkinsons disease (Chronic) Hospital Course and Treatment Imaging Results: 08/15/18 06:00 Fluoro Guided Lumbar Puncture [RAD] Urgent neurology- Dr Young Operations: None Procedures: - - Lumbar puncture Summary of Care Provided: The patient is a 78 year old M with a past medical history which includes Parkinson's disease. He was admitted through the ED on 08/08/2018 after his primary care doctor recommended he be admitted for increasing generalized weakness and difficulty ambulation as well as bilateral knee and back pain as a result of mechanical falls. Patient had fallen at home and hurt his knees and back. CT brain was negative for any acute changes and chest x-ray showed no acute process. Plain film thoracic spine showed no acute process and plain lumbar spine x-rays also showed no acute findings. He was admitted and managed for worsening debility due to mechanical falls and Parkinson's disease. Patient remained stable. However family was very concerned about his weakness as daughter said prior to all this happening, he was very active and was driving on his own and mowing the grass and very physically acteive. Neurology was consulted on account of suspicion of possible Guillain-Pedersen? as his daughter said he had had a prodromal respiratory tract infection. He had lumbar tap and CSF analysis showed elevated protein of 136 and mild elevated WBC of 0.013 as well as total cell count of 0.013. Per discussion with neurology, decision was made to commence patient on IVIG 25 g daily for 5 days total. Patient was discharged to [facility] transitional care unit on 08/15/2018. He had his first dose of IVIG 25 g in [facility] and is to have the remaining 4 doses at his transitional care unit. TCU was called at [facility] by counseling case manager to confirm that they would be able to give the patient the medication before he was discharged. I called his daughter Jacqui on her phone, and plan was discussed with her prior to discharge. He is to follow up with PCP and neurologist. Seen and examined prior to discharge. He felt well and had no complaints. He denied any headache, blurred vision, fever chills, abdominal pain, diarrhea vomiting. 12 point review of systems otherwise negative. Labs and vitals reviewed on examination Vitals: Vital Signs Height 5 ft 7 in Weight: 174 lb 13.225 oz Weight in Pounds 174.8 lbs Pulse Ox 96 Temperature 97.8 F Pulse Rate [Sitting] 82 Pulse Rate [Lying] 79 Pulse Rate 79 Respiratory Rate 18 Blood Pressure [Sitting] 137/68 Blood Pressure [Lying] 135/72 Blood Pressure [BP] 146/87 Blood Pressure 115/72 Blood Pressure Position [BP] Semi-Fowlers Blood Pressure Position Semi-Fowlers []General: Alert, Oriented x3, Cooperative, No apparent distress HEENT: Atraumatic, PERRLA, EOMI, Normocephalic Oral: Moist Mucosa Neck: Supple, No JVD, Negative Carotid Bruits Lungs: Clear to auscultation, Normal air movement, No rhonchi, No wheeze, No rales Cardiovascular: Regular rate, Regular Rhythm, Normal S1, Normal S2, No murmurs Abdomen: Bowel Sounds Present, Soft, Non Tender, Non-Distended, No Hepato- splenomegaly Extremities: No clubbing, No cyanosis, No edema, Capillary Refill Less than 3 Seconds Skin: No rashes, No breakdown Musculoskeletal: No Tenderness to Palpation of Joints or Extremities Lymphatic: No Cervical, Supraclavicular, or Inguinal Adenopathy Neurological: Cranial nerves II-XII grossly intact, Neuro grossly intact Psych/Mental Status: Normal Affect, Appropriate, Alert and oriented to time, place, person, mood and affect Plan as discussed above. Patient Problems: Active and Suspected Problems Frequent falls (Acute) Elevated liver enzymes (Acute) Hyperglycemia (Acute) - Physical Exam Vital Signs Temp Pulse Resp BP Pulse Ox 97.8 F 95 14 121/75 H 96 08/15/18 11:27 08/15/18 11:27 08/15/18 11:38 08/15/18 11:27 08/15/18 11:27 Oxygen Delivery Method Room Air Weight: 174 lb 13.225 oz Body Mass Index (BMI) 27.3 Intake and Output for Last 24 Hours 08/13/18 08/14/18 08/15/18 23:59 23:59 23:59 Intake Total 400 / 400 400 / 400 360 / 360 Output Total 2100 / 2100 675 / 675 1250 / 1250 Balance -1700 / -1700 -275 / -275 -890 / -890 Microbiology Past 72 Hours 08/15/18 10:00 Gram Stain - Final Csf, Spinal Fluid Laboratory Tests Past 24 Hrs 08/15/18 08/15/18 08/15/18 05:35 08:05 10:00 PT 13.2 INR 1.0 APTT 27.3 Sodium 137 Potassium 4.3 Chloride 102 Carbon Dioxide 27.0 Anion Gap 8 BUN 20 H Creatinine 0.92 Estim Creat Clear Calc 61.87 Est GFR (MDRD) Af Amer 103 Est GFR (MDRD) Non-Af 85 BUN/Creatinine Ratio 21.9 H Glucose 95 Calcium 8.8 Fld Polynuclear WBCs # 0.000 Fld Polynuclear WBCs % 0.0 Fluid Mononuclear WBCs 0.013 Fld Mononuclear WBCs % 100.0 CSF Appearance CLEAR CSF Color COLORLESS CSF WBC 0.013 H CSF RBC 13 H CSF Cell Count Tube # 4 CSF Total Cell Counted 0.013 H CSF Comment May follow CSF Glucose CSF Total Protein 08/15/18 10:04 PT INR APTT Sodium Potassium Chloride Carbon Dioxide Anion Gap BUN Creatinine Estim Creat Clear Calc Est GFR (MDRD) Af Amer Est GFR (MDRD) Non-Af BUN/Creatinine Ratio Glucose Calcium Fld Polynuclear WBCs # Fld Polynuclear WBCs % Fluid Mononuclear WBCs Fld Mononuclear WBCs % CSF Appearance CSF Color CSF WBC CSF RBC CSF Cell Count Tube # CSF Total Cell Counted CSF Comment CSF Glucose 53 CSF Total Protein 136.0 H Home Medications: Medications to take at Discharge Carbidopa/Levodopa 25/100 [Sinemet 25/100] 2 tab PO TID 08/08/18 Menthol [Biofreeze] 1 applicatio TP PRN PRN 08/08/18 Immune Globulin 20 gm [Octagam 10% 20gm] 20 gm IV DAILY #4 vial 08/15/18 Immune Globulin 5 GM [Octagam 10% 5 gm] 5 gm IV DAILY #4 vial 08/15/18 Following Prescrptions Were Given to Patient: Immune Globulin 20 gm [Octagam 10% 20gm] 20 gm IV DAILY #4 vial Immune Globulin 5 GM [Octagam 10% 5 gm] 5 gm IV DAILY #4 vial Primary Care Physician: Get Lin Chi, MD [Primary Care Provider] - Please follow up with your Primary Care Physician in: 1 week Please Follow Up With: Taz Young MD When: 1-2 weeks Disposition: [facility] facility - [facility] Minutes spent on discharge:: 45 Patient Condition:: Stable Medical Necessity - Tobacco Use Smoking Status: Never smoker Tobacco Use: Non-smoker Meaningful Use Info Meaningful Use Diagnoses (Choose all that apply): None applicable Code Visit Inpatient E&M: 56369 Disch Hosp
[2018-08-15] MEDS: Immune Globulin 10 gm Premixed Solution IV (12:18)
[2018-08-15] MEDS: 0.9% NaCl Peripheral Flush Adult/Peds IV ×2 (12:27→15:12)
[2018-08-15] MEDS: Immune Globulin 10 gm Premixed Solution 1.5 GM IV (13:57)
--- NOTE | 2018-08-15 14:30 | CASEMGMT ---
Social Work Note Pt is being discharged today. SANKET faxed completed discharge paperwork to Jo in admissions at [facility] including transfer to extended care facility, signed medication list and any scripts. Originals in SNF folder and copy on pt's chart. SANKET completed convalescent [facility]000 in [facility]. Original in SNF folder and copy on pt's chart. SANKET set up transportation via cot through [employer] for 5:00pm. Transportation form on SNF folder and copy on pt's chart. SANKET updated FARTUN Cook, confidential secretary Garret and placed a call to Jo at [facility] and updated on transportation time. SW in to update pt and pt's friend Cathy present in room. SANKET updated pt and pt's friend on transportation time. SANKET placed a call to pt's daughter Jacqui and updated her on transportation time. Plan: Pt to discharge to [facility] TCU today at 5:00pm via cot with [employer] transporting. Diana Amador EMD SPECIAL EDUCATION TEACHER, PRODUCTION CLERKS SUPERVISOR
[2018-08-15] MEDS: Immune Globulin 5 GM Premixed Solution IV (14:40)
--- NOTE | 2018-08-15 16:06 | NURSING ---
called report to hemalatha burgess nurse. room assignment 239.
--- NOTE | 2018-08-15 16:21 | NURSING ---
Addendum entered by Altagracia Milton 08/15/18 16:34: Spoke with Cher, not Jenn. Original Note: Spoke with Jenn, nurse at [facility], states their physician is not going to accept patient to the facility based on pt getting IVIG for the next 4 days and still with pending diagnostic testing. She is going to call her hand cigar making supervisor and let this nurse know what the plan will be for discharge.
--- NOTE | 2018-08-15 16:29 | NURSING ---
Spoke with Cher again from [facility] TCU, physician is refusing to accept pt to the ecf as he is getting the IVIG. Dr. Garcia notified, attempted to call Diana Dean CM, voicemail left with update.
--- NOTE | 2018-08-15 16:39 | NURSING ---
pt updated about [facility] physician refusing to accept pt while receiving IVIG. PT ask this RN to update daughter Jacqui. Jimmie aware and asked if its possible to get pt into [facility] TCU/Rehab bed.
--- NOTE | 2018-08-15 16:45 | PCM.PN.HOSP ---
Patient Problems: Active and Suspected Problems Frequent falls (Acute) Elevated liver enzymes (Acute) Hyperglycemia (Acute) Subjective: Patient seen and examined. He had no complaints and feels well. He denied any fever or chills, cough or chest pain, shortness of breath, abdominal pain, diarrhea vomiting. He had a lumbar puncture by neurology this morning when she was slightly elevated cell count of 0.013 and elevated portion of 136. Per neurology, patient commenced on IVIG 25 g for 5 days. Patient was scheduled to be discharged to home on oral TCU and they had stated that they would be able to accept patient and given the IVIG. However later, accepting physician at [facility] TCU refused to accept patient because he was on IVIG. Patient will now need to stay for 5 days to complete a 5-day course of IVIG. Labs and vitals reviewed. Vitals/I&O's: Vital Signs Temp Pulse Resp BP Pulse Ox 97.8 F 79 18 115/72 96 08/15/18 15:11 08/15/18 15:11 08/15/18 15:11 08/15/18 15:11 08/15/18 15:11 Oxygen Flow Rate (L/min) 2 Oxygen Delivery Method Room Air Weight: 174 lb 13.225 oz Body Mass Index (BMI) 27.3 Intake and Output for Last 24 Hours 08/13/18 08/14/18 08/15/18 23:59 23:59 23:59 Intake Total 400 / 400 400 / 400 960 / 960 Output Total 2100 / 2100 675 / 675 1750 / 1750 Balance -1700 / -1700 -275 / -275 -790 / -790 General: Alert, Oriented x3, Cooperative, No apparent distress HEENT: Atraumatic, PERRLA, EOMI, Normocephalic Oral: Moist Mucosa Neck: Supple, No JVD, Negative Carotid Bruits Lungs: Clear to auscultation, Normal air movement, No rhonchi, No wheeze, No rales Cardiovascular: Regular rate, Regular Rhythm, Normal S1, Normal S2, No murmurs Abdomen: Bowel Sounds Present, Soft, Non Tender, Non-Distended, No Hepato-splenomegaly Extremities: No clubbing, No cyanosis, No edema, Capillary Refill Less than 3 Seconds Skin: No rashes, No breakdown Musculoskeletal: No Tenderness to Palpation of Joints or Extremities Lymphatic: No Cervical, Supraclavicular, or Inguinal Adenopathy Neurological: Cranial nerves II-XII grossly intact, Neuro grossly intact Psych/Mental Status: Normal Affect, Appropriate, Alert and oriented to time, place, person, mood and affect Microbiology Past 72 Hours 08/15/18 10:00 Csf, Spinal Fluid Gram Stain - Final Laboratory Results 08/15/18 05:35: Sodium 137, Potassium 4.3, Chloride 102, Carbon Dioxide 27.0, Anion Gap 8, BUN 20 H, Creatinine 0.92, Estim Creat Clear Calc 61.87, Est GFR (MDRD) Af Amer 103, Est GFR (MDRD) Non-Af 85, BUN/Creatinine Ratio 21.9 H, Glucose 95, Calcium 8.8 08/15/18 08:05: PT 13.2, INR 1.0, APTT 27.3 08/15/18 10:00: Fld Polynuclear WBCs # 0.000, Fld Polynuclear WBCs % 0.0, Fluid Mononuclear WBCs 0.013, Fld Mononuclear WBCs % 100.0, CSF Appearance CLEAR, CSF Color COLORLESS, CSF WBC 0.013 H, CSF RBC 13 H, CSF Cell Count Tube # 4, CSF Total Cell Counted 0.013 H, CSF Comment May follow 08/15/18 10:04: CSF Glucose 53, CSF Total Protein 136.0 H 08/15/18 : CSF Cryptococcus Ag Pending Current Medications Acetaminophen (Tylenol) 650 mg PO Q6H PRN PRN PRN Reason: PAIN Last Admin: 08/15/18 05:50 Dose: 650 mg Al Hydroxide/Mg Hydroxide (Mylanta Ii) 30 ml PO Q6H PRN PRN PRN Reason: Gastric burning Bisacodyl (Dulcolax) 10 mg RECTAL DAILY PRN PRN Reason: constipation Last Admin: 08/10/18 22:54 Dose: 10 mg Carbidopa/Levodopa (Sinemet) 2 tablet PO TIDAC PIPER Last Admin: 08/15/18 16:11 Dose: 2 tablet Cyclobenzaprine HCl (Flexeril) 5 mg PO BID PRN PRN Reason: muscle strain, sprain Last Admin: 08/10/18 22:14 Dose: 5 mg Diphenhydramine HCl (Benadryl) 25 mg PO TID PRN PRN PRN Reason: ITCHING Last Admin: 08/14/18 04:30 Dose: 25 mg Enoxaparin Sodium (Lovenox) 40 mg SC DAILY@1000 PIPER Last Admin: 08/15/18 10:54 Dose: Not Given Hydrocortisone (Hytone) 1 applic TOPICAL TID [facility]; Protocol Last Admin: 08/15/18 13:58 Dose: 1 applicatio Magnesium Hydroxide (Milk Of Magnesia) 30 ml PO DAILY PRN PRN PRN Reason: Constipation Last Admin: 08/10/18 11:45 Dose: 30 ml Morphine Sulfate () 2 - 4 mg IV Q4H PRN PRN PRN Reason: PAIN Morphine Sulfate () 2 - 4 mg IV Q4H PRN PRN PRN Reason: PAIN Last Admin: 08/08/18 21:51 Dose: 4 mg Ondansetron HCl (Zofran) 4 mg IV Q8H PRN PRN PRN Reason: NAUSEA Oxycodone HCl (Oxyir) 5 - 10 mg PO Q4H PRN PRN PRN Reason: SEVERE PAIN (6-10/10) Last Admin: 08/15/18 05:49 Dose: 5 mg Polyethylene Glycol (Miralax) 17 gm PO DAILY [facility] Last Admin: 08/15/18 12:48 Dose: Not Given Promethazine HCl (Phenergan) 12.5 mg IV Q6H PRN PRN PRN Reason: NAUSEA/VOMITING Senna/Docusate Sodium (Senokot-S, Elsie-Colace) 2 tablet PO BID [facility] Last Admin: 08/15/18 12:48 Dose: Not Given Sodium Chloride () 5 - 30 ml IV UD PRN PRN Reason: SALINE FLUSH Last Admin: 08/15/18 15:12 Dose: 10 ml Medical Necessity - Tobacco Use Smoking Status: Never smoker Tobacco Use: Non-smoker Assessment/Plan All Active Problems Frequent falls (Acute) Elevated liver enzymes (Acute) Hyperglycemia (Acute) 1. Acute intractable back pain due to mechanical falls pain is better controlled now. PT/OT on board case management on board had MRI of lumbar spine which showed noncompressive L4-5 disc protrusion awaiting placement fall precautions on flexeril and morphine 2. Worsening debility due to Parkinson's disease Likely contributes to recurrent falls neuro on board; daughter was concerned about possibility of Guillain [place] syndrome as she felt he was much weaker than previously. 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 Cryptococcus Ag pending. PT/OT on board. On Sinemet. 3. Hyperglycemia: Resolved. 4. Abnormal LFTs: stable cause is not clear; patient is asymptomatic will monitor 5. Leucopenia: white cell count is 4.1 today. Stable. Will mnitor DVT prophylaxis: lovenox Code status: full code Disposition: although [facility] accepted patient and said they would give patient IVIG x 4 more days, accepting physician at the [facility] TCU later said he wouldnt accept patient because he was on IVIG. Patient to have IVIG x 5 days then DC to SNF. Code Visit Inpatient E&M: 10466 Subs Hosp L3
--- NOTE | 2018-08-15 16:52 | PN_ITS ---
Patient Problems: Active and Suspected Problems Frequent falls (Acute) Elevated liver enzymes (Acute) Hyperglycemia (Acute) Subjective: Patient seen and examined. He had no complaints and feels well. He denied any fever or chills, cough or chest pain, shortness of breath, abdominal pain, diarrhea vomiting. He had a lumbar puncture by neurology this morning when she was slightly elevated cell count of 0.013 and elevated portion of 136. Per neurology, patient commenced on IVIG 25 g for 5 days. Patient was scheduled to be discharged to home on oral TCU and they had stated that they would be able to accept patient and given the IVIG. However later, accepting physician at [facility] TCU refused to accept patient because he was on IVIG. Patient will now need to stay for 5 days to complete a 5-day course of IVIG. Labs and vitals reviewed. Vitals/I&O's: Vital Signs Temp Pulse Resp BP Pulse Ox 97.8 F 79 18 115/72 96 08/15/18 15:11 08/15/18 15:11 08/15/18 15:11 08/15/18 15:11 08/15/18 15:11 Oxygen Flow Rate (L/min) 2 Oxygen Delivery Method Room Air Weight: 174 lb 13.225 oz Body Mass Index (BMI) 27.3 Intake and Output for Last 24 Hours 08/13/18 08/14/18 08/15/18 23:59 23:59 23:59 Intake Total 400 / 400 400 / 400 960 / 960 Output Total 2100 / 2100 675 / 675 1750 / 1750 Balance -1700 / -1700 -275 / -275 -790 / -790 General: Alert, Oriented x3, Cooperative, No apparent distress HEENT: Atraumatic, PERRLA, EOMI, Normocephalic Oral: Moist Mucosa Neck: Supple, No JVD, Negative Carotid Bruits Lungs: Clear to auscultation, Normal air movement, No rhonchi, No wheeze, No rales Cardiovascular: Regular rate, Regular Rhythm, Normal S1, Normal S2, No murmurs Abdomen: Bowel Sounds Present, Soft, Non Tender, Non-Distended, No Hepato- splenomegaly Extremities: No clubbing, No cyanosis, No edema, Capillary Refill Less than 3 Seconds Skin: No rashes, No breakdown Musculoskeletal: No Tenderness to Palpation of Joints or Extremities Lymphatic: No Cervical, Supraclavicular, or Inguinal Adenopathy Neurological: Cranial nerves II-XII grossly intact, Neuro grossly intact Psych/Mental Status: Normal Affect, Appropriate, Alert and oriented to time, place, person, mood and affect Microbiology Past 72 Hours 08/15/18 10:00 Csf, Spinal Fluid Gram Stain - Final Laboratory Results 08/15/18 05:35: Sodium 137, Potassium 4.3, Chloride 102, Carbon Dioxide 27.0, Anion Gap 8, BUN 20 H, Creatinine 0.92, Estim Creat Clear Calc 61.87, Est GFR (MDRD) Af Amer 103, Est GFR (MDRD) Non-Af 85, BUN/Creatinine Ratio 21.9 H, Glucose 95, Calcium 8.8 08/15/18 08:05: PT 13.2, INR 1.0, APTT 27.3 08/15/18 10:00: Fld Polynuclear WBCs # 0.000, Fld Polynuclear WBCs % 0.0, Fluid Mononuclear WBCs 0.013, Fld Mononuclear WBCs % 100.0, CSF Appearance CLEAR, CSF Color COLORLESS, CSF WBC 0.013 H, CSF RBC 13 H, CSF Cell Count Tube # 4, CSF Total Cell Counted 0.013 H, CSF Comment May follow 08/15/18 10:04: CSF Glucose 53, CSF Total Protein 136.0 H 08/15/18 : CSF Cryptococcus Ag Pending Current Medications Acetaminophen (Tylenol) 650 mg PO Q6H PRN PRN PRN Reason: PAIN Last Admin: 08/15/18 05:50 Dose: 650 mg Al Hydroxide/Mg Hydroxide (Mylanta Ii) 30 ml PO Q6H PRN PRN PRN Reason: Gastric burning Bisacodyl (Dulcolax) 10 mg RECTAL DAILY PRN PRN Reason: constipation Last Admin: 08/10/18 22:54 Dose: 10 mg Carbidopa/Levodopa (Sinemet) 2 tablet PO TIDAC PIPER Last Admin: 08/15/18 16:11 Dose: 2 tablet Cyclobenzaprine HCl (Flexeril) 5 mg PO BID PRN PRN Reason: muscle strain, sprain Last Admin: 08/10/18 22:14 Dose: 5 mg Diphenhydramine HCl (Benadryl) 25 mg PO TID PRN PRN PRN Reason: ITCHING Last Admin: 08/14/18 04:30 Dose: 25 mg Enoxaparin Sodium (Lovenox) 40 mg SC DAILY@1000 PIPER Last Admin: 08/15/18 10:54 Dose: Not Given Hydrocortisone (Hytone) 1 applic TOPICAL TID [facility]; Protocol Last Admin: 08/15/18 13:58 Dose: 1 applicatio Magnesium Hydroxide (Milk Of Magnesia) 30 ml PO DAILY PRN PRN PRN Reason: Constipation Last Admin: 08/10/18 11:45 Dose: 30 ml Morphine Sulfate () 2 - 4 mg IV Q4H PRN PRN PRN Reason: PAIN Morphine Sulfate () 2 - 4 mg IV Q4H PRN PRN PRN Reason: PAIN Last Admin: 08/08/18 21:51 Dose: 4 mg Ondansetron HCl (Zofran) 4 mg IV Q8H PRN PRN PRN Reason: NAUSEA Oxycodone HCl (Oxyir) 5 - 10 mg PO Q4H PRN PRN PRN Reason: SEVERE PAIN (6-10/10) Last Admin: 08/15/18 05:49 Dose: 5 mg Polyethylene Glycol (Miralax) 17 gm PO DAILY [facility] Last Admin: 08/15/18 12:48 Dose: Not Given Promethazine HCl (Phenergan) 12.5 mg IV Q6H PRN PRN PRN Reason: NAUSEA/VOMITING Senna/Docusate Sodium (Senokot-S, Elsie-Colace) 2 tablet PO BID [facility] Last Admin: 08/15/18 12:48 Dose: Not Given Sodium Chloride () 5 - 30 ml IV UD PRN PRN Reason: SALINE FLUSH Last Admin: 08/15/18 15:12 Dose: 10 ml Medical Necessity - Tobacco Use Smoking Status: Never smoker Tobacco Use: Non-smoker Assessment/Plan All Active Problems Frequent falls (Acute) Elevated liver enzymes (Acute) Hyperglycemia (Acute) 1. Acute intractable back pain due to mechanical falls * pain is better controlled now. 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 Worsening debility due to Parkinson's disease * Likely contributes to recurrent falls * neuro on board; daughter was concerned about possibility of Guillain [place] syndrome as she felt he was much weaker than previously. 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 Cryptococcus Ag pending. * PT/OT on board. On Sinemet. * * 3. Hyperglycemia: * Resolved. * 4. Abnormal LFTs: * stable * cause is not clear; patient is asymptomatic * will monitor * 5. Leucopenia: * white cell count is 4.1 today. Stable. Will mnitor * DVT prophylaxis: lovenox Code status: full code Disposition: although [facility] accepted patient and said they would give patient IVIG x 4 more days, accepting physician at the [facility] TCU later said he wouldnt accept patient because he was on IVIG. Patient to have IVIG x 5 days then DC to SNF. Code Visit Inpatient E&M: 44033 Subs Hosp L3
[2018-08-15] MEDS: Senna/Docusate Sodium 1 Tablet 2 TABLET PO (22:04)
[2018-08-16] VITALS (11 sets, daily range): BP systolic 111–138; BP diastolic 64–91; PULSE 68–89; RESP 14–18; TEMP 36.8–37.1; O2SAT 94–97
[2018-08-16] MEDS: oxyCODONE 5 MG Tablet PO ×2 (00:12→22:42)
[2018-08-16] MEDS: Hydrocortisone 2.5% Crm 1 APPLIC TOPICAL ×3 (06:06→22:43)
[2018-08-16] MEDS: Carbidopa/Levodopa 25/100 Tablet PO ×3 (06:06→17:09)
[2018-08-16] MEDS: Acetaminophen 325 MG Tablet 650 MG PO (06:13)
[2018-08-16 08:26] LABS: Pathologist Review Reviewed
[2018-08-16] MEDS: Enoxaparin 40 MG/0.4 ML Syringe SC (09:01)
[2018-08-16] MEDS: Polyethylene Glycol 3350 17 GM PACKET PO (09:01)
[2018-08-16] MEDS: Senna/Docusate Sodium 1 Tablet 2 TABLET PO ×2 (09:01→22:41)
[2018-08-16 09:42] LABS: Acid Fast Stain SEE PATHOLOGY REPORT; Cytology, Body Fluid / CSF SEE PATHOLOGY REPORT
--- NOTE | 2018-08-16 11:15 | PCM.PN.HOSP ---
Patient Problems: Active and Suspected Problems Frequent falls (Acute) Elevated liver enzymes (Acute) Hyperglycemia (Acute) Subjective: still with some intermittent back pain. Vitals/I&O's: Vital Signs Temp Pulse Resp BP Pulse Ox 37.1 C 68 16 130/81 H 95 08/16/18 07:51 08/16/18 07:51 08/16/18 07:51 08/16/18 07:51 08/16/18 07:51 Oxygen Flow Rate (L/min) 2 Oxygen Delivery Method Room Air Weight: 79.3 kg Body Mass Index (BMI) 27.3 Intake and Output for Last 24 Hours 08/14/18 08/15/18 08/16/18 23:59 23:59 23:59 Intake Total 400 / 400 960 / 960 100 / 100 Output Total 675 / 675 1750 / 1750 300 / 300 Balance -275 / -275 -790 / -790 -200 / -200 General: Alert, No apparent distress HEENT: Atraumatic, PERRLA, EOMI, Normocephalic, - - impaired saccades with vertical gaze Oral: Moist Mucosa, No Gingival or Mucosal Lesions/ Ulcerations Neck: No Nodes, Thyroid Normal Size and Texture Lungs: Clear to auscultation, Normal air movement, No rhonchi, No wheeze Cardiovascular: Regular rate, Regular Rhythm, Normal S1, Normal S2, No murmurs Abdomen: Bowel Sounds Present, Soft, Non Tender, Non-Distended, No Hepato-splenomegaly Extremities: No edema, No Calf Tenderness Skin: No rashes, No breakdown Musculoskeletal: No Tenderness to Palpation of Joints or Extremities, No Muscle Wasting Neurological: Cranial nerves II-XII grossly intact, Neuro grossly intact, Motor Exam 5/5 strength throughout Psych/Mental Status: Normal Affect, Appropriate Microbiology Past 72 Hours 08/15/18 10:00 Csf, Spinal Fluid Gram Stain - Final 08/15/18 10:00 Csf, Spinal Fluid CSF Culture - Preliminary No growth in 24 hours. Final to follow. Laboratory Results 08/15/18 10:00: CSF Comment Reviewed 08/15/18 11:19: Acid Fast Stain Pending, Miscellaneous Cytology Pending 08/15/18 : CSF Cryptococcus Ag Pending Current Medications Acetaminophen (Tylenol) 650 mg PO Q6H PRN PRN PRN Reason: PAIN Last Admin: 08/16/18 06:13 Dose: 650 mg Al Hydroxide/Mg Hydroxide (Mylanta Ii) 30 ml PO Q6H PRN PRN PRN Reason: Gastric burning Bisacodyl (Dulcolax) 10 mg RECTAL DAILY PRN PRN Reason: constipation Last Admin: 08/10/18 22:54 Dose: 10 mg Carbidopa/Levodopa (Sinemet) 2 tablet PO TIDAC [facility] Last Admin: 08/16/18 06:06 Dose: 2 tablet Cyclobenzaprine HCl (Flexeril) 5 mg PO BID PRN PRN Reason: muscle strain, sprain Last Admin: 08/10/18 22:14 Dose: 5 mg Diphenhydramine HCl (Benadryl) 25 mg PO TID PRN PRN PRN Reason: ITCHING Last Admin: 08/14/18 04:30 Dose: 25 mg Enoxaparin Sodium (Lovenox) 40 mg SC DAILY@1000 PIPER Last Admin: 08/16/18 09:01 Dose: 40 mg Hydrocortisone (Hytone) 1 applic TOPICAL TID [facility]; Protocol Last Admin: 08/16/18 06:06 Dose: 1 applicatio Immune Globulin 10 gm/ N/A 100 mls @ 33 mls/hr IV Q1H [facility] Stop: 08/16/18 12:59 Immune Globulin 5 gm/ N/A 50 mls @ 33 mls/hr IV Q1H [facility] Stop: 08/16/18 13:59 Magnesium Hydroxide (Milk Of Magnesia) 30 ml PO DAILY PRN PRN PRN Reason: Constipation Last Admin: 08/10/18 11:45 Dose: 30 ml Morphine Sulfate () 2 - 4 mg IV Q4H PRN PRN PRN Reason: PAIN Morphine Sulfate () 2 - 4 mg IV Q4H PRN PRN PRN Reason: PAIN Last Admin: 08/08/18 21:51 Dose: 4 mg Ondansetron HCl (Zofran) 4 mg IV Q8H PRN PRN PRN Reason: NAUSEA Oxycodone HCl (Oxyir) 5 - 10 mg PO Q4H PRN PRN PRN Reason: SEVERE PAIN (6-10/10) Last Admin: 08/16/18 00:12 Dose: 10 mg Polyethylene Glycol (Miralax) 17 gm PO DAILY [facility] Last Admin: 08/16/18 09:01 Dose: 17 gm Promethazine HCl (Phenergan) 12.5 mg IV Q6H PRN PRN PRN Reason: NAUSEA/VOMITING Senna/Docusate Sodium (Senokot-S, Elsie-Colace) 2 tablet PO BID [facility] Last Admin: 08/16/18 09:01 Dose: 2 tablet Sodium Chloride () 5 - 30 ml IV UD PRN PRN Reason: SALINE FLUSH Last Admin: 08/15/18 15:12 Dose: 10 ml Medical Necessity - Tobacco Use Smoking Status: Never smoker Tobacco Use: Non-smoker Assessment/Plan All Active Problems Frequent falls (Acute) Elevated liver enzymes (Acute) Hyperglycemia (Acute) 1. Debility started on IVIG for possible GBS it is unclear to me if the patient does have GBS or just acutely worse due to his hospitalization in a patient with a neuro degenerative disorder continue with empiric IVIG, and when completed, he will go to SNF 2. Parkinson's disease sees a Dr. Reyna, follow up with Dr. Reyna or a movement disorder specialist. 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 Additionally, clinically with impaired vertical saccades. Diagnosis won't change lead, but a more rapid progression can be seen with PSP v Parkinson's. At some point, goals of care will need to be addressed with the patient and family and aggressiveness of care (i.e., PEG tube when patient cannot safely swallow) 3. DVT proph: LMWH Code Visit Inpatient E&M: 36100 Subs Hosp L3
[2018-08-16] MEDS: Immune Globulin 10 gm Premixed Solution IV ×2 (11:20→13:00)
--- NOTE | 2018-08-16 11:29 | PN_ITS ---
Patient Problems: Active and Suspected Problems Frequent falls (Acute) Elevated liver enzymes (Acute) Hyperglycemia (Acute) Subjective: still with some intermittent back pain. Vitals/I&O's: Vital Signs Temp Pulse Resp BP Pulse Ox 37.1 C 68 16 130/81 H 95 08/16/18 07:51 08/16/18 07:51 08/16/18 07:51 08/16/18 07:51 08/16/18 07:51 Oxygen Flow Rate (L/min) 2 Oxygen Delivery Method Room Air Weight: 79.3 kg Body Mass Index (BMI) 27.3 Intake and Output for Last 24 Hours 08/14/18 08/15/18 08/16/18 23:59 23:59 23:59 Intake Total 400 / 400 960 / 960 100 / 100 Output Total 675 / 675 1750 / 1750 300 / 300 Balance -275 / -275 -790 / -790 -200 / -200 General: Alert, No apparent distress HEENT: Atraumatic, PERRLA, EOMI, Normocephalic, - - impaired saccades with vertical gaze Oral: Moist Mucosa, No Gingival or Mucosal Lesions/ Ulcerations Neck: No Nodes, Thyroid Normal Size and Texture Lungs: Clear to auscultation, Normal air movement, No rhonchi, No wheeze Cardiovascular: Regular rate, Regular Rhythm, Normal S1, Normal S2, No murmurs Abdomen: Bowel Sounds Present, Soft, Non Tender, Non-Distended, No Hepato- splenomegaly Extremities: No edema, No Calf Tenderness Skin: No rashes, No breakdown Musculoskeletal: No Tenderness to Palpation of Joints or Extremities, No Muscle Wasting Neurological: Cranial nerves II-XII grossly intact, Neuro grossly intact, Motor Exam 5/5 strength throughout Psych/Mental Status: Normal Affect, Appropriate Microbiology Past 72 Hours 08/15/18 10:00 Csf, Spinal Fluid Gram Stain - Final 08/15/18 10:00 Csf, Spinal Fluid CSF Culture - Preliminary No growth in 24 hours. Final to follow. Laboratory Results 08/15/18 10:00: CSF Comment Reviewed 08/15/18 11:19: Acid Fast Stain Pending, Miscellaneous Cytology Pending 08/15/18 : CSF Cryptococcus Ag Pending Current Medications Acetaminophen (Tylenol) 650 mg PO Q6H PRN PRN PRN Reason: PAIN Last Admin: 08/16/18 06:13 Dose: 650 mg Al Hydroxide/Mg Hydroxide (Mylanta Ii) 30 ml PO Q6H PRN PRN PRN Reason: Gastric burning Bisacodyl (Dulcolax) 10 mg RECTAL DAILY PRN PRN Reason: constipation Last Admin: 08/10/18 22:54 Dose: 10 mg Carbidopa/Levodopa (Sinemet) 2 tablet PO TIDAC [facility] Last Admin: 08/16/18 06:06 Dose: 2 tablet Cyclobenzaprine HCl (Flexeril) 5 mg PO BID PRN PRN Reason: muscle strain, sprain Last Admin: 08/10/18 22:14 Dose: 5 mg Diphenhydramine HCl (Benadryl) 25 mg PO TID PRN PRN PRN Reason: ITCHING Last Admin: 08/14/18 04:30 Dose: 25 mg Enoxaparin Sodium (Lovenox) 40 mg SC DAILY@1000 PIPER Last Admin: 08/16/18 09:01 Dose: 40 mg Hydrocortisone (Hytone) 1 applic TOPICAL TID [facility]; Protocol Last Admin: 08/16/18 06:06 Dose: 1 applicatio Immune Globulin 10 gm/ N/A 100 mls @ 33 mls/hr IV Q1H [facility] Stop: 08/16/18 12:59 Immune Globulin 5 gm/ N/A 50 mls @ 33 mls/hr IV Q1H [facility] Stop: 08/16/18 13:59 Magnesium Hydroxide (Milk Of Magnesia) 30 ml PO DAILY PRN PRN PRN Reason: Constipation Last Admin: 08/10/18 11:45 Dose: 30 ml Morphine Sulfate () 2 - 4 mg IV Q4H PRN PRN PRN Reason: PAIN Morphine Sulfate () 2 - 4 mg IV Q4H PRN PRN PRN Reason: PAIN Last Admin: 08/08/18 21:51 Dose: 4 mg Ondansetron HCl (Zofran) 4 mg IV Q8H PRN PRN PRN Reason: NAUSEA Oxycodone HCl (Oxyir) 5 - 10 mg PO Q4H PRN PRN PRN Reason: SEVERE PAIN (6-10/10) Last Admin: 08/16/18 00:12 Dose: 10 mg Polyethylene Glycol (Miralax) 17 gm PO DAILY [facility] Last Admin: 08/16/18 09:01 Dose: 17 gm Promethazine HCl (Phenergan) 12.5 mg IV Q6H PRN PRN PRN Reason: NAUSEA/VOMITING Senna/Docusate Sodium (Senokot-S, Elsie-Colace) 2 tablet PO BID [facility] Last Admin: 08/16/18 09:01 Dose: 2 tablet Sodium Chloride () 5 - 30 ml IV UD PRN PRN Reason: SALINE FLUSH Last Admin: 08/15/18 15:12 Dose: 10 ml Medical Necessity - Tobacco Use Smoking Status: Never smoker Tobacco Use: Non-smoker Assessment/Plan All Active Problems Frequent falls (Acute) Elevated liver enzymes (Acute) Hyperglycemia (Acute) 1. Debility * started on IVIG for possible GBS * it is unclear to me if the patient does have GBS or just acutely worse due to his hospitalization in a patient with a neuro degenerative disorder * continue with empiric IVIG, and when completed, he will go to SNF 2. Parkinson's disease * sees a Dr. Reyna, follow up with Dr. Reyna or a movement disorder s pecialist. 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 Additionally, clinically with impaired vertical saccades. * Diagnosis won't exchange engineer, but a more rapid progression can be seen with PSP v Parkinson's. * At some point, goals of care will need to be addressed with the patient and family and aggressiveness of care (i.e., PEG tube when patient cannot safely swallow) 3. DVT proph: LMWH Code Visit Inpatient E&M: 85382 Subs Hosp L3
--- NOTE | 2018-08-16 12:29 | CASEMGMT ---
Social Work Note Pt's daughter requesting to speak to this worker. SW attempted to see pt's daughter but she was not present in room. SW spoke with pt's daughter spouse. SW updated pt's daughter spouse that this worker did call [facility] yesterday and at that time they had confirmed that they could take IVIG patients. SW stated that this worker had reviewed notes and pt's daughter had requested pt stay at either [facility] or rehab. SW explained that this worker did make a referral to last week and admissions at felt that pt wouldn't be able to handle three hours of therapy a day. SANKET stated that this worker did call TCU at [facility] and is waiting for a call back to determine if pt will need to complete IVIG before coming to TCU or if he will be able to go to TCU and get IVIG at infusion suite. SW waiting for a call back from Rayne in TCU. SW received message from Rayne in TCU. Per Rayne pt will need to complete IVIG before coming to TCU. Per notes, pt last dose of IVIG will be Wednesday and then pt can go to TCU after his last dose on Wednesday. SANKET placed a call to [employer] and informed them that pt didn't admit to [facility] yesterday and that the plan is for pt to now go to [facility]. SW will fax updates to [employer] to get approval. SW attempted to update pt's daughter and her spouse but both not currently in room. Plan: TCU pending pre-cert and once patient is medically cleared Diana Amador STRAINER MILL OPERATOR, SECOND RIDE FARE COLLECTOR
[2018-08-16] MEDS: Immune Globulin 5 GM Premixed Solution IV (13:40)
--- NOTE | 2018-08-16 15:02 | CASEMGMT ---
Social Work Note SW checked pt's room and pt's daughter still not present in room. SANKET placed a call to pt's daughter Jacqui and updated her that TCU will have a bed for pt on Wednesday once pt is done with his last dose of IVIG. SANKET explained that this worker will have to get insurance approval again. Jacqui states understanding. Plan: TCU pending pre-cert and medically cleared Diana Amador MEDICAL CHEMIST, EXTERNAL GRINDER
[2018-08-17] VITALS (11 sets, daily range): BP systolic 112–140; BP diastolic 66–81; PULSE 69–93; RESP 16–18; TEMP 36.6–37.1; O2SAT 95–98
[2018-08-17] MEDS: Hydrocortisone 2.5% Crm 1 APPLIC TOPICAL ×3 (05:29→22:57)
[2018-08-17] MEDS: Carbidopa/Levodopa 25/100 Tablet PO ×3 (06:14→16:45)
[2018-08-17] MEDS: oxyCODONE 5 MG Tablet PO (06:16)
[2018-08-17] MEDS: 0.9% NaCl Peripheral Flush Adult/Peds IV ×2 (06:20→11:54)
--- NOTE | 2018-08-17 08:08 | EKG12_ITS ---
Test Reason : CP Blood Pressure : / mmHG Vent. Rate : 072 BPM Atrial Rate : 072 BPM P-R Int : 198 ms QRS Dur : 148 ms QT Int : 418 ms P-R-T Axes : 054 079 025 degrees QTc Int : 457 ms Normal sinus rhythm Right bundle branch block Abnormal ECG When compared with ECG of 08-AUG-2018 16:55, RI interval has decreased Confirmed by CHEIKH WHITLOCK, ESSENCE ([id number]), news editor GARDENIA COTTON ([id number]) on 08/22/2018 1:52:11 PM Referred By: AMAURI Confirmed By:ESSENCE SALAMANCA MD
--- NOTE | 2018-08-17 08:10 | NURSING ---
Pt sitting up in chair eating breakfast, Nurse attends to pt banging on table stating he is having chest pain he is assisted with the armond to bed. VS taken and pt had a stat EKG done. Physician paged and notified. Physician at bedside.
[2018-08-17] MEDS: Mag Hydrox/Al Hydrox/Simeth 30 ML UDC PO (08:15)
--- NOTE | 2018-08-17 08:21 | PCM.PN.HOSP ---
Patient Problems: Active and Suspected Problems Frequent falls (Acute) Elevated liver enzymes (Acute) Hyperglycemia (Acute) Subjective: Had chest pain while eating, described as 05/13. Patient denies h/o choking. Vitals/I&O's: Vital Signs Temp Pulse Resp BP Pulse Ox 36.9 C 73 16 131/76 H 98 08/17/18 08:09 08/17/18 08:09 08/17/18 08:09 08/17/18 08:09 08/17/18 08:09 Oxygen Flow Rate (L/min) 2 Oxygen Delivery Method Nasal Cannula Weight: 79.3 kg Body Mass Index (BMI) 27.3 Intake and Output for Last 24 Hours 08/15/18 08/16/18 08/17/18 23:59 23:59 23:59 Intake Total 960 / 960 1350 / 1350 Output Total 1750 / 1750 1025 / 1025 1300 / 1300 Balance -790 / -790 325 / 325 -1300 / -1300 General: Alert, Cooperative, No apparent distress, - - hypophonic HEENT: Atraumatic, Normocephalic Oral: Moist Mucosa, No Gingival or Mucosal Lesions/ Ulcerations Neck: No Nodes, Thyroid Normal Size and Texture Lungs: Clear to auscultation, Normal air movement, No rhonchi, No wheeze Cardiovascular: Regular rate, Regular Rhythm, Normal S1, Normal S2, No murmurs Abdomen: Bowel Sounds Present, Soft, Non Tender, Non-Distended, No Hepato-splenomegaly Extremities: No edema, No Calf Tenderness Skin: - - abrasion over left knee. Musculoskeletal: No Tenderness to Palpation of Joints or Extremities, No Muscle Wasting Psych/Mental Status: Normal Affect, Appropriate Microbiology Past 72 Hours 08/15/18 10:00 Csf, Spinal Fluid Gram Stain - Final 08/15/18 10:00 Csf, Spinal Fluid CSF Culture - Preliminary No growth in 24 hours. Final to follow. Laboratory Results 08/15/18 10:00: CSF Comment Reviewed 08/15/18 11:19: Acid Fast Stain Pending, Miscellaneous Cytology Pending Current Medications Acetaminophen (Tylenol) 650 mg PO Q6H PRN PRN PRN Reason: PAIN Last Admin: 08/16/18 06:13 Dose: 650 mg Al Hydroxide/Mg Hydroxide (Mylanta Ii) 30 ml PO Q6H PRN PRN PRN Reason: Gastric burning Last Admin: 08/17/18 08:15 Dose: 30 ml Bisacodyl (Dulcolax) 10 mg RECTAL DAILY PRN PRN Reason: constipation Last Admin: 08/10/18 22:54 Dose: 10 mg Carbidopa/Levodopa (Sinemet) 2 tablet PO TIDAC [facility] Last Admin: 08/17/18 06:14 Dose: 2 tablet Cyclobenzaprine HCl (Flexeril) 5 mg PO BID PRN PRN Reason: muscle strain, sprain Last Admin: 08/10/18 22:14 Dose: 5 mg Diphenhydramine HCl (Benadryl) 25 mg PO TID PRN PRN PRN Reason: ITCHING Last Admin: 08/14/18 04:30 Dose: 25 mg Enoxaparin Sodium (Lovenox) 40 mg SC DAILY@1000 PIPER Last Admin: 08/16/18 09:01 Dose: 40 mg Hydrocortisone (Hytone) 1 applic TOPICAL TID [facility]; Protocol Last Admin: 08/17/18 05:29 Dose: 1 applicatio Magnesium Hydroxide (Milk Of Magnesia) 30 ml PO DAILY PRN PRN PRN Reason: Constipation Last Admin: 08/10/18 11:45 Dose: 30 ml Morphine Sulfate () 2 - 4 mg IV Q4H PRN PRN PRN Reason: PAIN Morphine Sulfate () 2 - 4 mg IV Q4H PRN PRN PRN Reason: PAIN Last Admin: 08/08/18 21:51 Dose: 4 mg Nutritional Formula (Lactose Free) (Ensure Enlive) 120 ml PO 4X/DAY [facility] Last Admin: 08/16/18 22:44 Dose: 120 ml Ondansetron HCl (Zofran) 4 mg IV Q8H PRN PRN PRN Reason: NAUSEA Oxycodone HCl (Oxyir) 5 - 10 mg PO Q4H PRN PRN PRN Reason: SEVERE PAIN (6-10/10) Last Admin: 08/17/18 06:16 Dose: 5 mg Polyethylene Glycol (Miralax) 17 gm PO DAILY [facility] Last Admin: 08/16/18 09:01 Dose: 17 gm Promethazine HCl (Phenergan) 12.5 mg IV Q6H PRN PRN PRN Reason: NAUSEA/VOMITING Senna/Docusate Sodium (Senokot-S, Elsie-Colace) 2 tablet PO BID [facility] Last Admin: 08/16/18 22:41 Dose: 2 tablet Sodium Chloride () 5 - 30 ml IV UD PRN PRN Reason: SALINE FLUSH Last Admin: 08/17/18 06:20 Dose: 10 ml Medical Necessity - Tobacco Use Smoking Status: Never smoker Tobacco Use: Non-smoker Assessment/Plan All Active Problems Frequent falls (Acute) Elevated liver enzymes (Acute) Hyperglycemia (Acute) 1. Debility started on IVIG for possible GBS it is unclear to me if the patient does have GBS or just acutely worse due to his hospitalization in a patient with a neuro degenerative disorder continue with empiric IVIG, and when completed, he will go to SNF 2. Parkinson's disease sees a Dr. Reyna, follow up with Dr. Reyna or a movement disorder specialist. 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 Additionally, clinically with impaired vertical saccades. Diagnosis won't cell changer, but a more rapid progression can be seen with PSP v Parkinson's. At some point, goals of care will need to be addressed with the patient and family and aggressiveness of care (i.e., PEG tube when patient cannot safely swallow) 3. Chest pain atypical EKG reviewed and showed NSR w RBBB, unchanged cycle troponins, if negative, no additional work up concerned for more GI etiology as not reproducible: reflux v dysphagia (i.e., if patient not chewing effectively given Parkinson's) check ST eval 4. DVT proph: LMWH 5. Dispo: to SNF pending completion of IVIG. Code Visit Inpatient E&M: 36500 Subs Hosp L2
--- NOTE | 2018-08-17 08:25 | PN_ITS ---
Patient Problems: Active and Suspected Problems Frequent falls (Acute) Elevated liver enzymes (Acute) Hyperglycemia (Acute) Subjective: Had chest pain while eating, described as 05/13. Patient denies h/o choking. Vitals/I&O's: Vital Signs Temp Pulse Resp BP Pulse Ox 36.9 C 73 16 131/76 H 98 08/17/18 08:09 08/17/18 08:09 08/17/18 08:09 08/17/18 08:09 08/17/18 08:09 Oxygen Flow Rate (L/min) 2 Oxygen Delivery Method Nasal Cannula Weight: 79.3 kg Body Mass Index (BMI) 27.3 Intake and Output for Last 24 Hours 08/15/18 08/16/18 08/17/18 23:59 23:59 23:59 Intake Total 960 / 960 1350 / 1350 Output Total 1750 / 1750 1025 / 1025 1300 / 1300 Balance -790 / -790 325 / 325 -1300 / -1300 General: Alert, Cooperative, No apparent distress, - - hypophonic HEENT: Atraumatic, Normocephalic Oral: Moist Mucosa, No Gingival or Mucosal Lesions/ Ulcerations Neck: No Nodes, Thyroid Normal Size and Texture Lungs: Clear to auscultation, Normal air movement, No rhonchi, No wheeze Cardiovascular: Regular rate, Regular Rhythm, Normal S1, Normal S2, No murmurs Abdomen: Bowel Sounds Present, Soft, Non Tender, Non-Distended, No Hepato- splenomegaly Extremities: No edema, No Calf Tenderness Skin: - - abrasion over left knee. Musculoskeletal: No Tenderness to Palpation of Joints or Extremities, No Muscle Wasting Psych/Mental Status: Normal Affect, Appropriate Microbiology Past 72 Hours 08/15/18 10:00 Csf, Spinal Fluid Gram Stain - Final 08/15/18 10:00 Csf, Spinal Fluid CSF Culture - Preliminary No growth in 24 hours. Final to follow. Laboratory Results 08/15/18 10:00: CSF Comment Reviewed 08/15/18 11:19: Acid Fast Stain Pending, Miscellaneous Cytology Pending Current Medications Acetaminophen (Tylenol) 650 mg PO Q6H PRN PRN PRN Reason: PAIN Last Admin: 08/16/18 06:13 Dose: 650 mg Al Hydroxide/Mg Hydroxide (Mylanta Ii) 30 ml PO Q6H PRN PRN PRN Reason: Gastric burning Last Admin: 08/17/18 08:15 Dose: 30 ml Bisacodyl (Dulcolax) 10 mg RECTAL DAILY PRN PRN Reason: constipation Last Admin: 08/10/18 22:54 Dose: 10 mg Carbidopa/Levodopa (Sinemet) 2 tablet PO TIDAC [facility] Last Admin: 08/17/18 06:14 Dose: 2 tablet Cyclobenzaprine HCl (Flexeril) 5 mg PO BID PRN PRN Reason: muscle strain, sprain Last Admin: 08/10/18 22:14 Dose: 5 mg Diphenhydramine HCl (Benadryl) 25 mg PO TID PRN PRN PRN Reason: ITCHING Last Admin: 08/14/18 04:30 Dose: 25 mg Enoxaparin Sodium (Lovenox) 40 mg SC DAILY@1000 PIPER Last Admin: 08/16/18 09:01 Dose: 40 mg Hydrocortisone (Hytone) 1 applic TOPICAL TID [facility]; Protocol Last Admin: 08/17/18 05:29 Dose: 1 applicatio Magnesium Hydroxide (Milk Of Magnesia) 30 ml PO DAILY PRN PRN PRN Reason: Constipation Last Admin: 08/10/18 11:45 Dose: 30 ml Morphine Sulfate () 2 - 4 mg IV Q4H PRN PRN PRN Reason: PAIN Morphine Sulfate () 2 - 4 mg IV Q4H PRN PRN PRN Reason: PAIN Last Admin: 08/08/18 21:51 Dose: 4 mg Nutritional Formula (Lactose Free) (Ensure Enlive) 120 ml PO 4X/DAY [facility] Last Admin: 08/16/18 22:44 Dose: 120 ml Ondansetron HCl (Zofran) 4 mg IV Q8H PRN PRN PRN Reason: NAUSEA Oxycodone HCl (Oxyir) 5 - 10 mg PO Q4H PRN PRN PRN Reason: SEVERE PAIN (6-10/10) Last Admin: 08/17/18 06:16 Dose: 5 mg Polyethylene Glycol (Miralax) 17 gm PO DAILY [facility] Last Admin: 08/16/18 09:01 Dose: 17 gm Promethazine HCl (Phenergan) 12.5 mg IV Q6H PRN PRN PRN Reason: NAUSEA/VOMITING Senna/Docusate Sodium (Senokot-S, Elsie-Colace) 2 tablet PO BID [facility] Last Admin: 08/16/18 22:41 Dose: 2 tablet Sodium Chloride () 5 - 30 ml IV UD PRN PRN Reason: SALINE FLUSH Last Admin: 08/17/18 06:20 Dose: 10 ml Medical Necessity - Tobacco Use Smoking Status: Never smoker Tobacco Use: Non-smoker Assessment/Plan All Active Problems Frequent falls (Acute) Elevated liver enzymes (Acute) Hyperglycemia (Acute) 1. Debility * started on IVIG for possible GBS * it is unclear to me if the patient does have GBS or just acutely worse due to his hospitalization in a patient with a neuro degenerative disorder * continue with empiric IVIG, and when completed, he will go to SNF 2. Parkinson's disease * sees a Dr. Reyna, follow up with Dr. Reyna or a movement disorder specialist. 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 Addit ionally, clinically with impaired vertical saccades. * Diagnosis won't change analyst, but a more rapid progression can be seen with PSP v Parkinson's. * At some point, goals of care will need to be addressed with the patient and family and aggressiveness of care (i.e., PEG tube when patient cannot safely swallow) 3. Chest pain * atypical * EKG reviewed and showed NSR w RBBB, unchanged * cycle troponins, if negative, no additional work up * concerned for more GI etiology as not reproducible: reflux v dysphagia (i.e., if patient not chewing effectively given Parkinson's) * check ST eval 4. DVT proph: LMWH 5. Dispo: to SNF pending completion of IVIG. Code Visit Inpatient E&M: 61750 Subs Hosp L2
[2018-08-17] MEDS: Enoxaparin 40 MG/0.4 ML Syringe SC (11:40)
[2018-08-17] MEDS: Immune Globulin 10 gm Premixed Solution IV ×2 (11:51→13:13)
--- NOTE | 2018-08-17 12:21 | CASEMGMT ---
Social Work Note SW faxed clinicals to [employer]. SW placed a call to [employer] and left them a message informing them of updated clinicals and that pt is seeking admissions to [facility] on Wednesday for rehabilitation. Plan: TCU Wednesday pending pre-cert and being medically cleared Diana Amador MSW, STAGE ELECTRICIAN HELPER
--- NOTE | 2018-08-17 13:06 | NURSING ---
Daughter and son in law into see pt and was updated on his status. His complaints of chest pain and his speech eval and his diet changes. Family states this is not pt baseline he seems more out of it. Requested that no more narcotics be given to him due to his lethargia. Pt has been has been verbally responsive for this nurse. Sleepy but easily awaken. Lunch tray arrived and pt is sitting up and eating with nurses supervision. Pt requested coffee and he was given with nectar thicken. Pt lady friend went down to [employer] and got pt a regular cup of coffee. Nurse objects to this but family states: daughter states he will not drink that thicken stuff. Speech therapy called and will be back later today to re-evaluate pt. Pt remains sitting up in bed.
[2018-08-17] MEDS: Immune Globulin 5 GM Premixed Solution IV (14:00)
[2018-08-17 14:07] LABS: Cryptococcus Antigen CSF Negative (Negative)
[2018-08-18] VITALS (17 sets, daily range): BP systolic 101–137; BP diastolic 58–91; PULSE 52–80; RESP 16–18; TEMP -8.8–37.1; O2SAT 93–100
[2018-08-18] MEDS: Carbidopa/Levodopa 25/100 Tablet PO ×3 (06:25→15:25)
[2018-08-18] MEDS: Hydrocortisone 2.5% Crm 1 APPLIC TOPICAL ×3 (06:25→22:05)
[2018-08-18] MEDS: 0.9% NaCl Peripheral Flush Adult/Peds IV (06:26)
[2018-08-18] MEDS: Enoxaparin 40 MG/0.4 ML Syringe SC (09:33)
--- NOTE | 2018-08-18 09:56 | CASEMGMT ---
Addendum entered by Diana Amador 08/18/18 13:15: SW updated pt's daughter on approval for admission to TCU. Original Note: Social Work Note SW received message from [employer] stating that they approved for pt to go to [facility] TCU. Roro Leary at [employer] states approval is good for four days. SW placed a call to Rayne in TCU stating that [employer] approved for pt to be admitted to TCU Wednesday. Plan: TCU Wednesday after IVIG Diana Amador TRUSTEE OF ESTATE, SEDIMENTATIONIST
--- NOTE | 2018-08-18 11:11 | PCM.PN.HOSP ---
Patient Problems: Active and Suspected Problems Frequent falls (Acute) Elevated liver enzymes (Acute) Hyperglycemia (Acute) Subjective: back pain today, mid back. Vitals/I&O's: Vital Signs Temp Pulse Resp BP Pulse Ox 36.6 C 66 18 133/73 H 93 08/18/18 09:25 08/18/18 09:25 08/18/18 09:25 08/18/18 09:25 08/18/18 09:25 Oxygen Flow Rate (L/min) 2 Oxygen Delivery Method Room Air Weight: 79.3 kg Body Mass Index (BMI) 27.3 Intake and Output for Last 24 Hours 08/16/18 08/17/18 08/18/18 23:59 23:59 23:59 Intake Total 1350 / 1350 1050 / 1050 50 / 50 Output Total 1025 / 1025 1800 / 1800 925 / 925 Balance 325 / 325 -750 / -750 -875 / -875 General: Alert, Cooperative, No apparent distress, - - hypophonic, but improved from 08/17 HEENT: Atraumatic, Normocephalic Neck: No Nodes, Thyroid Normal Size and Texture Lungs: Clear to auscultation, Normal air movement, No rhonchi, No wheeze Cardiovascular: Regular rate, Regular Rhythm, Normal S1, Normal S2, No murmurs Abdomen: Bowel Sounds Present, Soft, Non Tender, Non-Distended, No Hepato-splenomegaly Extremities: No clubbing, No cyanosis, No edema Psych/Mental Status: Normal Affect, Appropriate Microbiology Past 72 Hours 08/15/18 10:00 Csf, Spinal Fluid Gram Stain - Final 08/15/18 10:00 Csf, Spinal Fluid CSF Culture - Final No growth in 72 hours. Laboratory Results 08/15/18 11:19: Acid Fast Stain SEE PATHOLOGY REPORT, Miscellaneous Cytology SEE PATHOLOGY REPORT 08/15/18 : CSF Cryptococcus Ag Negative 08/17/18 11:20: Troponin I < 0.015 08/17/18 14:27: Troponin I < 0.015 Current Medications Acetaminophen (Tylenol) 650 mg PO Q6H PRN PRN PRN Reason: PAIN Last Admin: 08/16/18 06:13 Dose: 650 mg Al Hydroxide/Mg Hydroxide (Mylanta Ii) 30 ml PO Q6H PRN PRN PRN Reason: Gastric burning Last Admin: 08/17/18 08:15 Dose: 30 ml Bisacodyl (Dulcolax) 10 mg RECTAL DAILY PRN PRN Reason: constipation Last Admin: 08/10/18 22:54 Dose: 10 mg Carbidopa/Levodopa (Sinemet) 2 tablet PO TIDAC [facility] Last Admin: 08/18/18 10:21 Dose: 2 tablet Cyclobenzaprine HCl (Flexeril) 5 mg PO BID PRN PRN Reason: muscle strain, sprain Last Admin: 08/18/18 10:21 Dose: 5 mg Enoxaparin Sodium (Lovenox) 40 mg SC DAILY@1000 PIPER Last Admin: 08/18/18 09:33 Dose: 40 mg Hydrocortisone (Hytone) 1 applic TOPICAL TID [facility]; Protocol Last Admin: 08/18/18 06:25 Dose: 1 applicatio Immune Globulin 10 gm/ N/A 100 mls @ 33 mls/hr IV Q1H [facility] Stop: 08/18/18 12:59 Immune Globulin 5 gm/ N/A 50 mls @ 33 mls/hr IV Q1H [facility] Stop: 08/18/18 11:59 Magnesium Hydroxide (Milk Of Magnesia) 30 ml PO DAILY PRN PRN PRN Reason: Constipation Last Admin: 08/10/18 11:45 Dose: 30 ml Ondansetron HCl (Zofran) 4 mg IV Q8H PRN PRN PRN Reason: NAUSEA Polyethylene Glycol (Miralax) 17 gm PO DAILY [facility] Last Admin: 08/18/18 09:32 Dose: Not Given Promethazine HCl (Phenergan) 12.5 mg IV Q6H PRN PRN PRN Reason: NAUSEA/VOMITING Senna/Docusate Sodium (Senokot-S, Elsie-Colace) 2 tablet PO BID [facility] Last Admin: 08/18/18 09:32 Dose: Not Given Sodium Chloride () 5 - 30 ml IV UD PRN PRN Reason: SALINE FLUSH Last Admin: 08/18/18 06:26 Dose: 10 ml Medical Necessity - Tobacco Use Smoking Status: Never smoker Tobacco Use: Non-smoker Assessment/Plan All Active Problems Frequent falls (Acute) Elevated liver enzymes (Acute) Hyperglycemia (Acute) 1. Debility started on IVIG for possible GBS it is unclear to me if the patient does have GBS or just acutely worse due to his hospitalization in a patient with a neuro degenerative disorder continue with empiric IVIG, and when completed, he will go to SNF 2. Parkinson's disease sees a Dr. Reyna, follow up with Dr. Reyna or another movement disorder specialist. 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 Additionally, clinically with impaired vertical saccades. Diagnosis won't change management specialist, but a more rapid progression can be seen with PSP v Parkinson's. At some point, goals of care will need to be addressed with the patient and family and aggressiveness of care (i.e., PEG tube when patient cannot safely swallow) Discussed with patient that I do not feel he has GBS, but will defer to neurologist who ordered the IVIG. I feel that this a progression of his neurodegenerative process. check records from Dr. Reyna's office. 3. Chest pain atypical EKG reviewed and showed NSR w RBBB, unchanged cycle troponins, if negative, no additional work up concerned for more GI etiology as not reproducible: reflux v dysphagia (i.e., if patient not chewing effectively given Parkinson's) check ST eval no additional work up. 4. DVT proph: LMWH 5. Dispo: to SNF pending completion of IVIG. Code Visit Inpatient E&M: 72269 Subs Hosp L2
--- NOTE | 2018-08-18 11:15 | PN_ITS ---
Patient Problems: Active and Suspected Problems Frequent falls (Acute) Elevated liver enzymes (Acute) Hyperglycemia (Acute) Subjective: back pain today, mid back. Vitals/I&O's: Vital Signs Temp Pulse Resp BP Pulse Ox 36.6 C 66 18 133/73 H 93 08/18/18 09:25 08/18/18 09:25 08/18/18 09:25 08/18/18 09:25 08/18/18 09:25 Oxygen Flow Rate (L/min) 2 Oxygen Delivery Method Room Air Weight: 79.3 kg Body Mass Index (BMI) 27.3 Intake and Output for Last 24 Hours 08/16/18 08/17/18 08/18/18 23:59 23:59 23:59 Intake Total 1350 / 1350 1050 / 1050 50 / 50 Output Total 1025 / 1025 1800 / 1800 925 / 925 Balance 325 / 325 -750 / -750 -875 / -875 General: Alert, Cooperative, No apparent distress, - - hypophonic, but improved from 08/17 HEENT: Atraumatic, Normocephalic Neck: No Nodes, Thyroid Normal Size and Texture Lungs: Clear to auscultation, Normal air movement, No rhonchi, No wheeze Cardiovascular: Regular rate, Regular Rhythm, Normal S1, Normal S2, No murmurs Abdomen: Bowel Sounds Present, Soft, Non Tender, Non-Distended, No Hepato- splenomegaly Extremities: No clubbing, No cyanosis, No edema Psych/Mental Status: Normal Affect, Appropriate Microbiology Past 72 Hours 08/15/18 10:00 Csf, Spinal Fluid Gram Stain - Final 08/15/18 10:00 Csf, Spinal Fluid CSF Culture - Final No growth in 72 hours. Laboratory Results 08/15/18 11:19: Acid Fast Stain SEE PATHOLOGY REPORT, Miscellaneous Cytology SEE PATHOLOGY REPORT 08/15/18 : CSF Cryptococcus Ag Negative 08/17/18 11:20: Troponin I < 0.015 08/17/18 14:27: Troponin I < 0.015 Current Medications Acetaminophen (Tylenol) 650 mg PO Q6H PRN PRN PRN Reason: PAIN Last Admin: 08/16/18 06:13 Dose: 650 mg Al Hydroxide/Mg Hydroxide (Mylanta Ii) 30 ml PO Q6H PRN PRN PRN Reason: Gastric burning Last Admin: 08/17/18 08:15 Dose: 30 ml Bisacodyl (Dulcolax) 10 mg RECTAL DAILY PRN PRN Reason: constipation Last Admin: 08/10/18 22:54 Dose: 10 mg Carbidopa/Levodopa (Sinemet) 2 tablet PO TIDAC [facility] Last Admin: 08/18/18 10:21 Dose: 2 tablet Cyclobenzaprine HCl (Flexeril) 5 mg PO BID PRN PRN Reason: muscle strain, sprain Last Admin: 08/18/18 10:21 Dose: 5 mg Enoxaparin Sodium (Lovenox) 40 mg SC DAILY@1000 PIPER Last Admin: 08/18/18 09:33 Dose: 40 mg Hydrocortisone (Hytone) 1 applic TOPICAL TID [facility]; Protocol Last Admin: 08/18/18 06:25 Dose: 1 applicatio Immune Globulin 10 gm/ N/A 100 mls @ 33 mls/hr IV Q1H [facility] Stop: 08/18/18 12:59 Immune Globulin 5 gm/ N/A 50 mls @ 33 mls/hr IV Q1H [facility] Stop: 08/18/18 11:59 Magnesium Hydroxide (Milk Of Magnesia) 30 ml PO DAILY PRN PRN PRN Reason: Constipation Last Admin: 08/10/18 11:45 Dose: 30 ml Ondansetron HCl (Zofran) 4 mg IV Q8H PRN PRN PRN Reason: NAUSEA Polyethylene Glycol (Miralax) 17 gm PO DAILY [facility] Last Admin: 08/18/18 09:32 Dose: Not Given Promethazine HCl (Phenergan) 12.5 mg IV Q6H PRN PRN PRN Reason: NAUSEA/VOMITING Senna/Docusate Sodium (Senokot-S, Elsie-Colace) 2 tablet PO BID [facility] Last Admin: 08/18/18 09:32 Dose: Not Given Sodium Chloride () 5 - 30 ml IV UD PRN PRN Reason: SALINE FLUSH Last Admin: 08/18/18 06:26 Dose: 10 ml Medical Necessity - Tobacco Use Smoking Status: Never smoker Tobacco Use: Non-smoker Assessment/Plan All Active Problems Frequent falls (Acute) Elevated liver enzymes (Acute) Hyperglycemia (Acute) 1. Debility * started on IVIG for possible GBS * it is unclear to me if the patient does have GBS or just acutely worse due to his hospitalization in a patient with a neuro degenerative disorder * continue with empiric IVIG, and when completed, he will go to SNF 2. Parkinson's disease * sees a Dr. Reyna, follow up with Dr. Reyna or another movement disorder specialist. 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 Additionally, clinically with impaired vertical saccades. * Diagnosis won't materials management manager, but a more rapid progression can be seen with PSP v Parkinson's. * At some point, goals of care will need to be addressed with the patient and family and aggressiveness of care (i.e., PEG tube when patient cannot safely swallow) * Discussed with patient that I do not feel he has GBS, but will defer to neurologist who ordered the IVIG. I feel that this a progression of his neurodegenerative process. * check records from Dr. Reyna's office. 3. Chest pain * atypical * EKG reviewed and showed NSR w RBBB, unchanged * cycle troponins, if negative, no additional work up * concerned for more GI etiology as not reproducible: reflux v dysphagia (i.e., if patient not chewing effectively given Parkinson's) * check ST eval * no additional work up. 4. DVT proph: LMWH 5. Dispo: to SNF pending completion of IVIG. Code Visit Inpatient E&M: 44015 Subs Hosp L2
[2018-08-18] MEDS: Acetaminophen 325 MG Tablet 650 MG PO ×2 (11:16→23:11)
[2018-08-18] MEDS: Immune Globulin 5 GM Premixed Solution IV (12:07)
[2018-08-18] MEDS: Immune Globulin 10 gm Premixed Solution IV ×2 (13:07→15:25)
[2018-08-19] VITALS (10 sets, daily range): BP systolic 130–142; BP diastolic 76–88; PULSE 61–81; RESP 16–18; TEMP 36.2–36.6; O2SAT 95–98
[2018-08-19] MEDS: Hydrocortisone 2.5% Crm 1 APPLIC TOPICAL ×2 (07:35→12:43)
[2018-08-19] MEDS: Carbidopa/Levodopa 25/100 Tablet PO ×2 (07:35→11:38)
[2018-08-19] MEDS: Enoxaparin 40 MG/0.4 ML Syringe SC (07:41)
[2018-08-19] MEDS: Acetaminophen 325 MG Tablet 650 MG PO (07:49)
[2018-08-19] MEDS: Immune Globulin 10 gm Premixed Solution IV ×2 (10:10→11:36)
--- NOTE | 2018-08-19 10:34 | PCM.TXEXTCAR ---
- Diet 08/17/18 09:50 Diet: Regular Diet Food consistency:: Soft Liquid Consistency:: Regular/Thin Dietary Modifications:: Soft Diet Is pt able to select menu?: Yes Diet Comments: Supervision w/ reduction in alertness:seated in chair if possible, no straw - Routine Orders/Code Status Enema Type: Fleetz Enema Frequency: Daily PRN Suppository Type: Dulcolax 10mg Suppository Frequency: Daily PRN O2 Frequency: PRN Keep PO Greater than or Equal to (%): 92 Code Status: Full Code - Wound(s) left knee Wound Type: Abrasion rt flank Wound Type: Abrasion - Therapies Weight Bearing: Weight bearing as tolerated Physical Therapy: Eval and Treat Occupational Therapy: Eval and Treat Speech Therapy: Eval and Treat - Allergies/Procedures Done in Hospital Allergies/Adverse Reactions: Allergies No Known Allergies Allergy (Verified 08/08/18 15:13) Procedures: - - lumbar puncture - Type of Care/Length of Stay Estimated LOS: Convalescent Care Less Than 30 days Type of Care Needed: Skilled Rehab Potential: Fair Prognosis: Fair - Additional Orders/Day of Discharge Day of Discharge: 08/19/18 - Follow Up Care Primary Care Physician: Get Lin Chi, MD [Primary Care Provider] - Please follow up with your Primary Care Physician in: 1 week Please Follow Up With: Axel - your neurologist. When: 3-4 weeks. Please, obtain a disk of imaging done here before going.
--- NOTE | 2018-08-19 10:37 | PCM.DC.SUM ---
Discharge Date and Diagnosis - Problem List Patient Problems: Active and Suspected Problems Frequent falls (Acute) Elevated liver enzymes (Acute) Hyperglycemia (Acute) Date of Admission: 08/08/18 Date of Discharge: 08/19/18 - Primary Discharge Diagnosis Active and Suspected Problems Frequent falls (Acute) Elevated liver enzymes (Acute) Hyperglycemia (Acute) - Secondary Discharge Diagnosis Chronic Problems Parkinsons disease (Chronic) Hospital Course and Treatment Imaging Results: Clinical Impression(s) from Imaging Studies Brain CT 08/08/18 16:15 IMPRESSION: 1. No acute process. 2. Mild microvascular ischemic changes. Atrophy. Electronically Signed: Jo Pompa MD at 17:22 EST Tel , Service support , Chest X-Ray 08/08/18 17:05 IMPRESSION: No acute process. Electronically Signed: Jo Pompa MD at 17:26 EST Tel , Service support , Lumbar Spine X-Ray 08/08/18 18:40 IMPRESSION: 1. No evidence of trauma. 2. Mild degenerative disc changes. Electronically Signed: Jo Pompa MD at 19:22 EST Tel , Service support , Thoracic Spine X-Ray 08/08/18 18:40 IMPRESSION: 1. No acute process. Electronically Signed: Jo Pompa MD at 19:18 EST Tel , Service support , Lumbar Spine MRI 08/09/18 12:02 IMPRESSION: 1. No trauma or spinal stenosis. 2. Noncompressive L4-5 disc protrusion. Electronically Signed: Jo Pompa MD at 16:41 EST Tel , Service support , ADDENDUM: 08/10/18 2328 Hand X-Ray 08/12/18 11:32 IMPRESSION: No acute fractures or dislocations. Degenerative changes. Electronically Signed: Dean Ayala MD at 16:18 EST , Service support , Brain MRI 08/12/18 12:39 IMPRESSION: No acute intracranial abnormality. Moderate chronic microvascular ischemic changes. Electronically Signed: Tyler Mir MD at 9:37 EST Tel , Service support , ADDENDUM: 08/16/18 0813 Cervical Spine MRI 08/12/18 12:40 IMPRESSION: 1. No evidence of trauma. 2. Borderline C4-5 canal stenosis. 3. Multilevel foraminal stenosis, greatest at C4-5 and C5-6. Electronically Signed: Jo Pompa MD at 19:07 EST Tel , Service support , Hand X-Ray 08/12/18 13:40 IMPRESSION: No acute fractures or dislocations. Degenerative changes. Tiny metal foreign bodies. Electronically Signed: Dean Ayala MD at 16:16 EST , Service support , Lumbar Puncture Fluoroscopy 08/15/18 06:00 IMPRESSION: Successful fluoroscopic-guided lumbar puncture. Electronically Signed: Greg Medrano MD at 11:08 EST Tel [phone], Service support , Taz Young MD. Neurology. Operations: None Procedures: - - Lumbar Puncture. Summary of Care Provided: The patient is a 78 year old M presents with pain and falls. Concern with the family was for Gianne Pedersen? because his symptoms seem to be progressive. Patient did undergo a lumbar puncture while he was here in the for some protein and some cells. Patient was empirically started on IVIG for possible Gianne Pedersen?. 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 Does feel that the patient's weakness is just a gradual progression of his neurodegenerative process and that he may have waxing and weight symptoms that may be better on some days than others but also within the same day patient received IVIG and really had no significant improvement with that. Patient instructed to follow-up with his neurologist as outpatient. 1. Debility started on IVIG for possible GBS it is unclear to me if the patient does have GBS (I personally doubt) or just acutely worse due to his hospitalization in a patient with a neuro degenerative disorder continue with empiric IVIG by neurology, and when completed, he will go to SNF 2. Parkinson's disease sees a Dr. Reyna, follow up with Dr. Reyna or another movement disorder specialist. 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 Additionally, clinically with impaired vertical saccades. Diagnosis won't vendor management specialist, but a more rapid progression can be seen with PSP v Parkinson's. At some point, goals of care will need to be addressed with the patient and family and aggressiveness of care (i.e., PEG tube when patient cannot safely swallow) Discussed with patient that I do not feel he has GBS, but will defer to neurologist who ordered the IVIG. I feel that this a progression of his neurodegenerative process. check records from Dr. Reyna's office. 3. Chest pain atypical EKG reviewed and showed NSR w RBBB, unchanged cycle troponins, if negative, no additional work up concerned for more GI etiology as not reproducible: reflux v dysphagia (i.e., if patient not chewing effectively given Parkinson's) check ST eval no additional work up.[] Patient Problems: Active and Suspected Problems Frequent falls (Acute) Elevated liver enzymes (Acute) Hyperglycemia (Acute) Subjective: still with back pain. - Physical Exam General: Alert, Cooperative, No apparent distress HEENT: Atraumatic, Normocephalic Oral: Moist Mucosa, No Gingival or Mucosal Lesions/ Ulcerations Neck: No Nodes, Thyroid Normal Size and Texture Lungs: Clear to auscultation, Normal air movement, No rhonchi, No wheeze Cardiovascular: Regular rate, Regular Rhythm, Normal S1, Normal S2, No murmurs Abdomen: Bowel Sounds Present, Soft, Non Tender, Non-Distended Musculoskeletal: - - paraspinal muscle tenderness. Vital Signs Temp Pulse Resp BP Pulse Ox 36.4 C L 64 18 132/78 H 95 08/19/18 10:25 08/19/18 10:25 08/19/18 10:25 08/19/18 10:25 08/19/18 10:25 Oxygen Flow Rate (L/min) 2 Oxygen Delivery Method Room Air Weight: 79.3 kg Body Mass Index (BMI) 27.3 Intake and Output for Last 24 Hours 08/17/18 08/18/18 08/19/18 23:59 23:59 23:59 Intake Total 1050 / 1050 830 / 830 100 / 100 Output Total 1800 / 1800 1675 / 1675 850 / 850 Balance -750 / -750 -845 / -845 -750 / -750 Microbiology Past 72 Hours 08/15/18 10:00 Gram Stain - Final Csf, Spinal Fluid CSF Culture - Final No growth in 72 hours. Discharge Diet: - - mechanical soft, nectar thickened liquids. Discharge Activity: May Not Drive Home Medications: Medications to take at Discharge Carbidopa/Levodopa 25/100 [Sinemet 25/100] 2 tab PO TID 08/08/18 Menthol [Biofreeze] 1 applicatio TP PRN PRN 08/08/18 Cyclobenzaprine [Flexeril] 5 mg PO BID PRN tablet 08/19/18 Mag Hydrox/Al Hydrox/Simeth [Mylanta II] 30 ml PO Q6H PRN PRN udc 08/19/18 Magnesium Hydroxide [Milk Of Magnesia] 30 ml PO DAILY PRN PRN udc 08/19/18 Polyethylene Glycol 3350 [Miralax] 17 gm PO DAILY packet 08/19/18 Senna/Docusate Sodium [Senokot-S] 2 tablet PO BID tablet 08/19/18 Primary Care Physician: Get Lin Chi, MD [Primary Care Provider] - Please follow up with your Primary Care Physician in: 1 week Please Follow Up With: Axel - your neurologist. When: 3-4 weeks. Please, obtain a disk of imaging done here before going. Disposition: [facility] facility - [facility] Minutes spent on discharge:: 32 Patient Condition:: Fair Medical Necessity - Tobacco Use Smoking Status: Never smoker Tobacco Use: Non-smoker Meaningful Use Info Meaningful Use Diagnoses (Choose all that apply): None applicable Code Visit Inpatient E&M: 31585 Disch Hosp
--- NOTE | 2018-08-19 10:41 | DS.PCM_ITS ---
Discharge Date and Diagnosis - Problem List Patient Problems: Active and Suspected Problems Frequent falls (Acute) Elevated liver enzymes (Acute) Hyperglycemia (Acute) Date of Admission: 08/08/18 Date of Discharge: 08/19/18 - Primary Discharge Diagnosis Active and Suspected Problems Frequent falls (Acute) Elevated liver enzymes (Acute) Hyperglycemia (Acute) - Secondary Discharge Diagnosis Chronic Problems Parkinsons disease (Chronic) Hospital Course and Treatment Imaging Results: Clinical Impression(s) from Imaging Studies Brain CT 08/08/18 16:15 IMPRESSION: 1. No acute process. 2. Mild microvascular ischemic changes. Atrophy. Electronically Signed: Jo Pompa MD at 17:22 EST Tel , Service support , Chest X-Ray 08/08/18 17:05 IMPRESSION: No acute process. Electronically Signed: Jo Pompa MD at 17:26 EST Tel , Service support , Lumbar Spine X-Ray 08/08/18 18:40 IMPRESSION: 1. No evidence of trauma. 2. Mild degenerative disc changes. Electronically Signed: Jo Pompa MD at 19:22 EST Tel , Service support , Thoracic Spine X-Ray 08/08/18 18:40 IMPRESSION: 1. No acute process. Electronically Signed: Jo Pompa MD at 19:18 EST Tel , Service support , Lumbar Spine MRI 08/09/18 12:02 IMPRESSION: 1. No trauma or spinal stenosis. 2. Noncompressive L4-5 disc protrusion. Electronically Signed: Jo Pompa MD at 16:41 EST Tel , Service support , ADDENDUM: 08/10/18 2328 Hand X-Ray 08/12/18 11:32 IMPRESSION: No acute fractures or dislocations. Degenerative changes. Electronically Signed: Dean Ayala MD at 16:18 EST , Service support , Brain MRI 08/12/18 12:39 IMPRESSION: No acute intracranial abnormality. Moderate chronic microvascular ischemic changes. Electronically Signed: Tyler Mir MD at 9:37 EST Tel , Service support , ADDENDUM: 08/16/18 0813 Cervical Spine MRI 08/12/18 12:40 IMPRESSION: 1. No evidence of trauma. 2. Borderline C4-5 canal stenosis. 3. Multilevel foraminal stenosis, greatest at C4-5 and C5-6. Electronically Signed: Jo Pompa MD at 19:07 EST Tel , Service support , Hand X-Ray 08/12/18 13:40 IMPRESSION: No acute fractures or dislocations. Degenerative changes. Tiny metal foreign bodies. Electronically Signed: Dean Ayala MD at 16:16 EST , Service support , Lumbar Puncture Fluoroscopy 08/15/18 06:00 IMPRESSION: Successful fluoroscopic-guided lumbar puncture. Electronically Signed: Greg Medrano MD at 11:08 EST Tel [phone], Service support , Taz Young MD. Neurology. Operations: None Procedures: - - Lumbar Puncture. Summary of Care Provided: The patient is a 78 year old M presents with pain and falls. Concern with the family was for Gianne Pedersen? because his symptoms seem to be progressive. Patient did undergo a lumbar puncture while he was here in the for some protein and some cells. Patient was empirically started on IVIG for possible Gianne Pedersen?. 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 Does feel that the patient's weakness is just a gradual progression of his neurodegenerative process and that he may have waxing and weight symptoms that may be better on some days than others but also within the same day patient received IVIG and really had no significant improvement with that. Patient instructed to follow-up with his neurologist as outpatient. 1. Debility * started on IVIG for possible GBS * it is unclear to me if the patient does have GBS (I personally doubt) or just acutely worse due to his hospitalization in a patient with a neuro degenerative disorder * continue with empiric IVIG by neurology, and when completed, he will go to SNF 2. Parkinson's disease * sees a Dr. Reyna, follow up with Dr. Reyna or another movement disorder specialist. 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 Additionally, clinically with impaired vertical saccades. * Diagnosis won't policy change clerk, but a more rapid progression can be seen with PSP v Parkinson's. * At some point, goals of care will need to be addressed with the patient and family and aggressiveness of care (i.e., PEG tube when patient cannot safely swallow) * Discussed with patient that I do not feel he has GBS, but will defer to neurologist who ordered the IVIG. I feel that this a progression of his neurodegenerative process. * check records from Dr. Reyna's office. 3. Chest pain * atypical * EKG reviewed and showed NSR w RBBB, unchanged * cycle troponins, if negative, no additional work up * concerned for more GI etiology as not reproducible: reflux v dysphagia (i.e., if patient not chewing effectively given Parkinson's) * check ST eval * no additional work up.[] Patient Problems: Active and Suspected Problems Frequent falls (Acute) Elevated liver enzymes (Acute) Hyperglycemia (Acute) Subjective: still with back pain. - Physical Exam General: Alert, Cooperative, No apparent distress HEENT: Atraumatic, Normocephalic Oral: Moist Mucosa, No Gingival or Mucosal Lesions/ Ulcerations Neck: No Nodes, Thyroid Normal Size and Texture Lungs: Clear to auscultation, Normal air movement, No rhonchi, No wheeze Cardiovascular: Regular rate, Regular Rhythm, Normal S1, Normal S2, No murmurs Abdomen: Bowel Sounds Present, Soft, Non Tender, Non-Distended Musculoskeletal: - - paraspinal muscle tenderness. Vital Signs Temp Pulse Resp BP Pulse Ox 36.4 C L 64 18 132/78 H 95 08/19/18 10:25 08/19/18 10:25 08/19/18 10:25 08/19/18 10:25 08/19/18 10:25 Oxygen Flow Rate (L/min) 2 Oxygen Delivery Method Room Air Weight: 79.3 kg Body Mass Index (BMI) 27.3 Intake and Output for Last 24 Hours 08/17/18 08/18/18 08/19/18 23:59 23:59 23:59 Intake Total 1050 / 1050 830 / 830 100 / 100 Output Total 1800 / 1800 1675 / 1675 850 / 850 Balance -750 / -750 -845 / -845 -750 / -750 Microbiology Past 72 Hours 08/15/18 10:00 Gram Stain - Final Csf, Spinal Fluid CSF Culture - Final No growth in 72 hours. Discharge Diet: - - mechanical soft, nectar thickened liquids. Discharge Activity: May Not Drive Home Medications: Medications to take at Discharge Carbidopa/Levodopa 25/100 [Sinemet 25/100] 2 tab PO TID 08/08/18 Menthol [Biofreeze] 1 applicatio TP PRN PRN 08/08/18 Cyclobenzaprine [Flexeril] 5 mg PO BID PRN tablet 08/19/18 Mag Hydrox/Al Hydrox/Simeth [Mylanta II] 30 ml PO Q6H PRN PRN udc 08/19/18 Magnesium Hydroxide [Milk Of Magnesia] 30 ml PO DAILY PRN PRN udc 08/19/18 Polyethylene Glycol 3350 [Miralax] 17 gm PO DAILY packet 08/19/18 Senna/Docusate Sodium [Senokot-S] 2 tablet PO BID tablet 08/19/18 Primary Care Physician: Get Lin Chi, MD [Primary Care Provider] - Please follow up with your Primary Care Physician in: 1 week Please Follow Up With: Axel - your neurologist. When: 3-4 weeks. Please, obtain a disk of imaging done here before going. Disposition: [facility] facility - [facility] TCU Minutes spent on discharge:: 32 Patient Condition:: Fair Medical Necessity - Tobacco Use Smoking Status: Never smoker Tobacco Use: Non-smoker Meaningful Use Info Meaningful Use Diagnoses (Choose all that apply): None applicable Code Visit Inpatient E&M: 15269 Disch Hosp
--- NOTE | 2018-08-19 11:45 | CASEMGMT ---
Social Work Note RN Roro updated this worker that pt's daughter is asking about notary for Advanced Directives. Charge Nurse Altagracia called OB and per Altagracia all secretaries in OB are notaries. SW met with pt and pt's daughter. Per pt's daughter pt was able to disclose his wishes for advanced directives. SANKET explained that once pt gets to TCU, the drug abuse social worker on TCU is a notary and will be able to go over the documents and witness the pt sign the documents. Pt's daughter Jacqui states understanding. SANKET placed a call to Rayne in TCU and updated her pt will be discharged to her today. Rayne states she received the official approval from [employer] today. Plan: Discharge to TCU today Diana Amador [employer]IO MECH[employer]IC, [employer]
[2018-08-19] MEDS: Immune Globulin 5 GM Premixed Solution IV (12:41)
--- NOTE | 2018-08-19 13:44 | NURSING ---
1310 Called report to Phillip in TCU.
== END 2018-08-19 13:54 | disposition skilled nursing facility (03) | DRG 96 ==
LOC: ED 17:20 → MS3 20:00
PROVIDERS: Internal Medicine; Psychiatry & Neurology Neurology; Student in an Organized Health Care Education/Training Program; Admitting Provider Family Medicine; Emergency Provider Emergency Medicine; Family Provider Family Medicine Geriatric Medicine; PCP Family Medicine Geriatric Medicine
DX: G61.0 Guillain-Barre syndrome (principal); G20 Parkinson's disease; M54.9 Dorsalgia, unspecified; R53.81 Other malaise; R74.8 Abnormal levels of other serum enzymes; R73.9 Hyperglycemia, unspecified; R07.89 Other chest pain; R29.6 Repeated falls; I45.10 Unspecified right bundle-branch block; M51.26 Other intervertebral disc displacement, lumbar region
CPT/HCPCS: 36415; 62270; 70450; 70551; 71046; 72072; 72100; 72141; 72148; 73130; 77003; 80048; 80053; 81001; 82140; 82945; 83735; 84157; 84484; 85025; 85610; 85730; 87070; 87205; 87899; 88108; 88312; 88313; 89050; 89051; 92526; 93005; 97110; 97162; 97165; 97530; 99284; J7030; J7040; A4216; J1568

== ENCOUNTER 2018-08-19 14:00 | Inpatient (IN) | payer MEDICARE, SELFPAY ==
--- NOTE | 2018-08-19 14:17 | PCM.HP.STD ---
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 The patient is a 78 year old Male with below past medical history presented to [facility] Emergency Department 08/08/2018 with weakness. 08/08/2018 CT brain mild microvascular ischemic changes with atrophy. 08/08/2018 EKG sinus rhythm with sinus arrhythmia with 1st degree AV block, right bundle branch block. 08/08/2018 Chest X-ray negative. 08/08/2018 X-ray lumbar spine shows mild degenerative disease. 08/08/2018 X-ray Thoracic spine negative. Multiple falls, knee pain. Falls backward. Morphine given for pain. 08/08/2018 Admit to Hospital. Pain control, Toradol, Flexeril. Consult PT/OT. 08/09/2018 Dr. Young recommended MRI L spine, PT/OT. 08/09/2018 Liver enzymes improving. 08/09/2018 MRI L4-5 disc protrusion. 08/12/2018 X-ray right hand degenerative changes. 08/12/2018 MRI brain moderate chronic microvascular ischemic changes. 08/12/2018 MRI Cervical spine, borderline C4-5 canal stenosis, multilevel foraminal stenosis, greatest at C4-5, C5-6. 08/12/2018 X-ray left hand degenerative changes, tiny metal foreign body. 08/15/2018 Fluoroscopy guided lumbar puncture performed. 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 Unknown if IVIG helpful for weakness. Concern for Progressive Supranuclear Palsy versus worsening Parkinson's Disease also in differential. Chest pain resolved, cardiac enzymes negative, no further evaluation recommended. 08/19/2018 Admit to TCU with debility, here for rehabilitation, strengthening, prior to disposition determination. Vertical saccades normal on my exam, PSP less likely. Past Medical History Past Medical History (Chronic Problems): Chronic Problems Parkinsons disease (Chronic) Allergies No Known Allergies Allergy (Verified 08/08/18 15:13) Home Medications: Ambulatory Orders Medication Instructions Recorded Carbidopa/Levodopa 25/100 [Sinemet 2 tab PO TID 08/08/18 25/100] Menthol [Biofreeze] 1 applicatio TP PRN PRN 08/08/18 Cyclobenzaprine [Flexeril] 5 mg PO BID PRN tablet 08/19/18 Mag Hydrox/Al Hydrox/Simeth 30 ml PO Q6H PRN PRN udc 08/19/18 [Mylanta II] Magnesium Hydroxide [Milk Of 30 ml PO DAILY PRN PRN udc 08/19/18 Magnesia] Polyethylene Glycol 3350 [Miralax] 17 gm PO DAILY 08/19/18 Senna/Docusate Sodium [Senokot-S] 2 tablet PO BID 08/19/18 Surgical History: - - Left rotator cuff repair. Psychiatric History: No pertinent psych hx Lives: Spouse/ Significant Other Smoking Status: Never smoker Tobacco Use: Non-smoker Alcohol: None Drugs: None - *Family History Maternal History Items: - - Mother passed in her 90s, healthy without history of HD, DM or CA. Paternal History Items: Heart Disease - Father w/ history of HD/ID in his 60s. Review of Systems Constitutional: Reports: Weakness, Fatigue. Denies: Chills, Fever, Weight Change HEENT: Denies: Head Aches, Sinus Congestion, Sinus Drainage Cardiovascular: Denies: Chest Pain, Palpitations Respiratory: Denies: Cough, Shortness of breath at rest, Sputum production Gastrointestinal: Denies: Abdominal Pain, Nausea, Vomiting Genitourinary: Denies: Dysuria Musculoskeletal: Denies: Joint Pain, Joint Tenderness Skin: Denies: Rash, Wounds Neurological: Denies: Numbness, Tingling, Focal weakness Psychiatric: Denies: Anxiety, Depression, Homicidal Ideations, Suicidal Ideations Hematologic/ Lymphatic: Denies: Easy Bruising, Easy Bleeding VTE Information - Inpt Only VTE Present on Admission: No VTE Mechan Device Prophylaxis: Knee High CADEN Hose VTE Pharm Prophylaxis ordered?: Yes 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 Debility - PT/OT. Dysphagia - ST. Pain - Tylenol 1000MG Q6H PRN mild pain. Bowel - Miralax 17GM daily, Senna/colace 2 tablets BID, Dulcolax 10MG PO daily PRN. Pneumonia vaccination - Administer Prevnar 13 and/or Pneumovax 23 as needed. DVT prophylaxis - Lovenox 40MG SC daily. Parkinson's Disease - Sinemet 25/100MG 2 tablets TID. Muscle spasm - Flexeril 5MG BID PRN.
--- NOTE | 2018-08-19 14:33 | HP.PCM_ITS ---
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 The patient is a 78 year old Male with below past medical history presented to [facility] Emergency Department 08/08/2018 with weakness. 08/08/2018 CT brain mild microvascular ischemic changes with atrophy. 08/08/2018 EKG sinus rhythm with sinus arrhythmia with 1st degree AV block, right bundle branch block. 08/08/2018 Chest X-ray negative. 08/08/2018 X-ray lumbar spine shows mild degenerative disease. 08/08/2018 X-ray Thoracic spine negative. Multiple falls, knee pain. Falls backward. Morphine given for pain. 08/08/2018 Admit to Hospital. Pain control, Toradol, Flexeril. Consult PT/OT. 08/09/2018 Dr. Young recommended MRI L spine, PT/OT. 08/09/2018 Liver enzymes improving. 08/09/2018 MRI L4-5 disc protrusion. 08/12/2018 X-ray right hand degenerative changes. 08/12/2018 MRI brain moderate chronic microvascular ischemic changes. 08/12/2018 MRI Cervical spine, borderline C4-5 canal stenosis, multilevel foraminal stenosis, greatest at C4-5, C5-6. 08/12/2018 X-ray left hand degenerative changes, tiny metal foreign body. 08/15/2018 Fluoroscopy guided lumbar puncture performed. Dr. Young recommended IVIG x 5 days for Guillain [place] Syndrome. Unknown if IVIG helpful for weakness. Concern for Progressive Supranuclear Palsy versus worsening Parkinson's Disease also in differential. Chest pain resolved, cardiac enzymes negative, no further evaluation recommended. 08/19/2018 Admit to TCU with debility, here for rehabilitation, strengthening, prior to disposition determination. Vertical saccades normal on my exam, PSP less likely. Past Medical History Past Medical History (Chronic Problems): Chronic Problems Parkinsons disease (Chronic) Allergies No Known Allergies Allergy (Verified 08/08/18 15:13) Home Medications: Ambulatory Orders Medication Instructions Recorded Carbidopa/Levodopa 25/100 [Sinemet 2 tab PO TID 08/08/18 25/100] Menthol [Biofreeze] 1 applicatio TP PRN PRN 08/08/18 Cyclobenzaprine [Flexeril] 5 mg PO BID PRN tablet 08/19/18 Mag Hydrox/Al Hydrox/Simeth 30 ml PO Q6H PRN PRN udc 08/19/18 [Mylanta II] Magnesium Hydroxide [Milk Of 30 ml PO DAILY PRN PRN udc 08/19/18 Magnesia] Polyethylene Glycol 3350 [Miralax] 17 gm PO DAILY 08/19/18 Senna/Docusate Sodium [Senokot-S] 2 tablet PO BID 08/19/18 Surgical History: - - Left rotator cuff repair. Psychiatric History: No pertinent psych hx Lives: Spouse/ Significant Other Smoking Status: Never smoker Tobacco Use: Non-smoker Alcohol: None Drugs: None - *Family History Maternal History Items: - - Mother passed in her 90s, healthy without history of HD, DM or CA. Paternal History Items: Heart Disease - Father w/ history of HD/AR in his 60s. Review of Systems Constitutional: Reports: Weakness, Fatigue. Denies: Chills, Fever, Weight Change HEENT: Denies: Head Aches, Sinus Congestion, Sinus Drainage Cardiovascular: Denies: Chest Pain, Palpitations Respiratory: Denies: Cough, Shortness of breath at rest, Sputum production Gastrointestinal: Denies: Abdominal Pain, Nausea, Vomiting Genitourinary: Denies: Dysuria Musculoskeletal: Denies: Joint Pain, Joint Tenderness Skin: Denies: Rash, Wounds Neurological: Denies: Numbness, Tingling, Focal weakness Psychiatric: Denies: Anxiety, Depression, Homicidal Ideations, Suicidal Ideations Hematologic/ Lymphatic: Denies: Easy Bruising, Easy Bleeding VTE Information - Inpt Only VTE Present on Admission: No VTE Mechan Device Prophylaxis: Knee High CADEN Hose VTE Pharm Prophylaxis ordered?: Yes 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 * Debility - PT/OT. * Dysphagia - ST. * Pain - Tylenol 1000MG Q6H PRN mild pain. * Bowel - Miralax 17GM daily, Senna/colace 2 tablets BID, Dulcolax 10MG PO daily PRN. * Pneumonia vaccination - Administer Prevnar 13 and/or Pneumovax 23 as needed. * DVT prophylaxis - Lovenox 40MG SC daily. * Parkinson's Disease - Sinemet 25/100MG 2 tablets TID. * Muscle spasm - Flexeril 5MG BID PRN.
--- NOTE | 2018-08-19 15:23 | PCM.PN.RX ---
<JessicaAlok Dayanna - Last Filed: 08/19/18 15:23> Progress Note - Pharmacy Subjective: TCU Admission Objective: Allergies No Known Allergies Allergy (Verified 08/08/18 15:13) Current Medications Generic Name Dose Route Start Last Admin Trade Name Freq PRN Reason Stop Dose Admin Acetaminophen 1,000 mg 08/19/18 14:42 Tylenol PO Q6H PRN PRN MILD PAIN (1-3/10) Bisacodyl 10 mg 08/19/18 14:43 Dulcolax PO DAILY PRN Constipation Carbidopa/Levodopa 2 tablet 08/19/18 22:00 Sinemet PO TID PIPER Cyclobenzaprine HCl 5 mg 08/19/18 14:36 Flexeril PO BID PRN PRN muscle strain, sprain Enoxaparin Sodium 40 mg 08/20/18 06:00 Lovenox SC DAILY@0600 PIPER Menthol 1 applic 08/19/18 14:48 Bengay Vanishing Scent TOPICAL PRN PRN TOPICAL PAIN Polyethylene Glycol 17 gm 08/20/18 06:00 Miralax PO DAILY PIPER Senna/Docusate Sodium 2 tablet 08/19/18 18:00 Senokot-S, Elsie-Colace PO BID PIPER Tuberculin PPD 5 tu 08/20/18 10:00 Tubersol, Aplisol, Ppd ID 08/20/18 10:01 X1 ONE Tuberculin PPD 5 08/27/18 10:00 Tubersol, Aplisol, Ppd ID 08/27/18 10:01 X1 ONE Problem List Weakness (Acute) 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 Continue to monitor prn medication use, daily pain scores. 2) Parkinson's Carbidopa/levodopa. Continue to monitor clinically. 3) DVT PPx Enoxaparin daily. Continue to monitor for bleeding/clot. Psychotropic Medications: None Unnecessary Medications: None Bowel Regimen: 4) Senna/s, PEG, prn bisacodyl. Continue to monitor prn medication use, for constipation/diarrhea. Date of Note:: 08/19/18 - Provider Comments Provider responsibility: Provider responsible to enter orders to implement recommendations <Get Lin Chi - Last Filed: 08/19/18 17:13> Progress Note - Pharmacy Subjective: [] Objective: Allergies No Known Allergies Allergy (Verified 08/08/18 15:13) Current Medications Generic Name Dose Route Start Last Admin Trade Name Freq PRN Reason Stop Dose Admin Acetaminophen 1,000 mg 08/19/18 14:42 Tylenol PO Q6H PRN PRN MILD PAIN (1-3/10) Bisacodyl 10 mg 08/19/18 14:43 Dulcolax PO DAILY PRN Constipation Carbidopa/Levodopa 2 tablet 08/19/18 22:00 Sinemet PO TID [facility] Cyclobenzaprine HCl 5 mg 08/19/18 14:36 Flexeril PO BID PRN PRN muscle strain, sprain Enoxaparin Sodium 40 mg 08/20/18 06:00 Lovenox SC DAILY@0600 [facility] Menthol 1 applic 08/19/18 14:48 Bengay Vanishing Scent TOPICAL PRN PRN TOPICAL PAIN Polyethylene Glycol 17 gm 08/20/18 06:00 Miralax PO DAILY [facility] Senna/Docusate Sodium 2 tablet 08/19/18 18:00 08/19/18 16:35 Senokot-S, Elsie-Colace PO Not Given BID PIPER Tuberculin PPD 5 08/20/18 10:00 Tubersol, Aplisol, Ppd ID 08/20/18 10:01 X1 ONE Tuberculin PPD 5 08/27/18 10:00 Tubersol, Aplisol, Ppd ID 08/27/18 10:01 X1 ONE Problem List Weakness (Acute) 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
--- NOTE | 2018-08-19 15:26 | PHA.CONS_ITS ---
<JessicaAlok Dayanna - Last Filed: 08/19/18 15:23> Progress Note - Pharmacy Subjective: TCU Admission Objective: Allergies No Known Allergies Allergy (Verified 08/08/18 15:13) Current Medications Generic Name Dose Route Start Last Admin Trade Name Freq PRN Reason Stop Dose Admin Acetaminophen 1,000 mg 08/19/18 14:42 Tylenol PO Q6H PRN PRN MILD PAIN (1-3/10) Bisacodyl 10 mg 08/19/18 14:43 Dulcolax PO DAILY PRN Constipation Carbidopa/Levodopa 2 tablet 08/19/18 22:00 Sinemet PO TID PIPER Cyclobenzaprine HCl 5 mg 08/19/18 14:36 Flexeril PO BID PRN PRN muscle strain, sprain Enoxaparin Sodium 40 mg 08/20/18 06:00 Lovenox SC DAILY@0600 PIPER Menthol 1 applic 08/19/18 14:48 Bengay Vanishing Scent TOPICAL PRN PRN TOPICAL PAIN Polyethylene Glycol 17 gm 08/20/18 06:00 Miralax PO DAILY PIPER Senna/Docusate Sodium 2 tablet 08/19/18 18:00 Senokot-S, Elsie-Colace PO BID PIPER Tuberculin PPD 5 tu 08/20/18 10:00 Tubersol, Aplisol, Ppd ID 08/20/18 10:01 X1 ONE Tuberculin PPD 5 08/27/18 10:00 Tubersol, Aplisol, Ppd ID 08/27/18 10:01 X1 ONE Problem List Weakness (Acute) 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 Continue to monitor prn medication use, daily pain scores. 2) Parkinson's Carbidopa/levodopa. Continue to monitor clinically. 3) DVT PPx Enoxaparin daily. Continue to monitor for bleeding/clot. Psychotropic Medications: None Unnecessary Medications: None Bowel Regimen: 4) Senna/s, PEG, prn bisacodyl. Continue to monitor prn medication use, for constipation/diarrhea. Date of Note:: 08/19/18 - Provider Comments Provider responsibility: Provider responsible to enter orders to implement recommendations <Get Lin Chi - Last Filed: 08/19/18 17:13> Progress Note - Pharmacy Subjective: [] Objective: Allergies No Known Allergies Allergy (Verified 08/08/18 15:13) Current Medications Generic Name Dose Route Start Last Admin Trade Name Freq PRN Reason Stop Dose Admin Acetaminophen 1,000 mg 08/19/18 14:42 Tylenol PO Q6H PRN PRN MILD PAIN (1-3/10) Bisacodyl 10 mg 08/19/18 14:43 Dulcolax PO DAILY PRN Constipation Carbidopa/Levodopa 2 tablet 08/19/18 22:00 Sinemet PO TID [facility] Cyclobenzaprine HCl 5 mg 08/19/18 14:36 Flexeril PO BID PRN PRN muscle strain, sprain Enoxaparin Sodium 40 mg 08/20/18 06:00 Lovenox SC DAILY@0600 [facility] Menthol 1 applic 08/19/18 14:48 Bengay Vanishing Scent TOPICAL PRN PRN TOPICAL PAIN Polyethylene Glycol 17 gm 08/20/18 06:00 Miralax PO DAILY [facility] Senna/Docusate Sodium 2 tablet 08/19/18 18:00 08/19/18 16:35 Senokot-S, Elsie-Colace PO Not Given BID PIPER Tuberculin PPD 5 08/20/18 10:00 Tubersol, Aplisol, Ppd ID 08/20/18 10:01 X1 ONE Tuberculin PPD 5 08/27/18 10:00 Tubersol, Aplisol, Ppd ID 08/27/18 10:01 X1 ONE Problem List Weakness (Acute) 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
[2018-08-19 15:41] VITALS: BP 138/74; PULSE 79; RESP 16; TEMP 36.3; O2SAT 98
--- NOTE | 2018-08-19 15:42 | NURSING ---
Pt arrived from med surg via wheel chair at 1400
[2018-08-19 15:49] VITALS: BMI 25.4
[2018-08-19 15:51] VITALS: BMI 25.4
--- NOTE | 2018-08-19 16:01 | NURSING ---
Code status discussed with pt, patient wishes to be a full code
[2018-08-19] MEDS: Carbidopa/Levodopa 25/100 Tablet PO (21:11)
[2018-08-19] MEDS: Acetaminophen 500 MG Tablet 1000 MG PO (23:09)
[2018-08-20] MEDS: Polyethylene Glycol 3350 17 GM PACKET PO (04:36)
[2018-08-20] MEDS: Senna/Docusate Sodium 1 Tablet 2 TABLET PO ×2 (04:36→16:26)
[2018-08-20] MEDS: Carbidopa/Levodopa 25/100 Tablet PO ×3 (04:36→21:30)
[2018-08-20] MEDS: Enoxaparin 40 MG/0.4 ML Syringe SC (04:39)
[2018-08-20] MEDS: Acetaminophen 500 MG Tablet 1000 MG PO ×3 (05:18→21:30)
[2018-08-20 07:28] LABS: Anion Gap 6 (5-15); BUN 18 mg/dL (7-18); BUN/Creat Ratio 21.8 RATIO (10-20); Calcium,Total 8.6 mg/dL (8.5-10.1); Chloride 101 mmol/L (98-107); Creatinine, Serum 0.82 mg/dL (0.70-1.30); EST Glomerular Filtration Rate 96 mL/min (>60); Est Glom Filt Rate - Afr Amer 116 mL/min (>60); Estimated Creatinine Clearance 69.41 ml/min; Glucose 89 mg/dL (74-106); Potassium 3.7 mmol/L (3.5-5.1); Sodium Level 133 mmol/L (136-145)
[2018-08-20 07:29] LABS: Absolute Lymphocyte Count 0.98 X10^3/ul (0.83-4.51); Absolute Neutrophil Count 1.6 X10^3/uL (2.0-7.7); Basophil# 0.09 X10^3/uL; Basophil% 2.8 % (0-1); Eosinophil# 0.15 X10^3/uL; Eosinophils% 4.6 % (0-5); Hematocrit 42.3 % (40-54); Hemoglobin 14.1 g/dl (13.0-16.5); Lymphocyte # 0.98 X10^3/ul (4.0); Lymphocyte % 30.2 % (19-41); Mean Corp Hgb Conc 33.3 g/gl (32-36); Mean Corpuscular Hgb 31.1 pg (27.0-32.0); Mean Corpuscular Volume 93.4 fL (80-94); Monocyte# 0.45 X10^3/uL; Monocyte% 13.8 % (0-10); Neutrophil # 1.57 X10^3/uL (2.7-7.7); Neutrophil % 48.3 % (47-70); POSITIVE COUNT NO; POSITIVE DIFFERENTIAL NO; POSITIVE MORPHOLOGY NO; Platelet Count 201 K/mm3 (150-450); RBC Distribution Width CV 12.9 % (11.6-14.6); RBC Distribution Width SD 44.1 fl (35.1-43.9); Red Blood Count 4.53 M/mm3 (4.6-6.2); White Blood Count 3.3 K/mm3 (4.4-11.0)
[2018-08-20] MEDS: Tuberculin,Purif.prot.deriv. 50 TU/ML Vial 5 ML ID (10:22)
[2018-08-20 15:25] VITALS: BP 132/72; PULSE 59; RESP 16; TEMP 36.5; O2SAT 96
[2018-08-21] MEDS: Polyethylene Glycol 3350 17 GM PACKET PO (05:14)
[2018-08-21] MEDS: Senna/Docusate Sodium 1 Tablet 2 TABLET PO ×2 (05:14→16:54)
[2018-08-21] MEDS: Enoxaparin 40 MG/0.4 ML Syringe SC (05:14)
[2018-08-21] MEDS: Carbidopa/Levodopa 25/100 Tablet PO ×3 (05:15→19:43)
[2018-08-21 16:00] VITALS: BP 109/59; PULSE 66; RESP 16; TEMP 35.7; O2SAT 96
[2018-08-21] MEDS: MELATONIN 10 MG TABLET PO (20:44)
[2018-08-22] MEDS: Carbidopa/Levodopa 25/100 Tablet PO ×3 (06:16→20:18)
[2018-08-22] MEDS: Enoxaparin 40 MG/0.4 ML Syringe SC (06:19)
[2018-08-22] MEDS: Acetaminophen 500 MG Tablet 1000 MG PO ×2 (07:05→20:20)
--- NOTE | 2018-08-22 14:02 | CASEMGMT ---
Reviewed and approved social work student attached documentation. JEAN CLAUDE BolanosW, FORENSIC INVESTIGATOR
[2018-08-22 15:33] VITALS: BP 112/65; PULSE 73; RESP 18; TEMP 36.3; O2SAT 96
[2018-08-22] MEDS: MELATONIN 10 MG TABLET PO (20:18)
[2018-08-23] MEDS: Carbidopa/Levodopa 25/100 Tablet PO ×3 (06:37→20:08)
[2018-08-23] MEDS: Enoxaparin 40 MG/0.4 ML Syringe SC (06:37)
[2018-08-23] MEDS: Acetaminophen 500 MG Tablet 1000 MG PO (10:37)
--- NOTE | 2018-08-23 11:11 | CASEMGMT ---
Addendum entered by Katherine Betancur 08/23/18 11:59: Reviewed and approved social work student MDS documentation. Katherine Betancur, VERONICA, AVAYA ENGINEER Original Note: Addendum entered by Kinjal Salgado 08/23/18 11:15: Correction: PHQ-9 score 4/27. Original Note: Brief interview for mental status (BIMS) and mood (PHQ-9) completed on this day. BIMS score 13/15. PHQ-9 score 4/25. Coretta Salgado social work student
--- NOTE | 2018-08-23 12:48 | CASEMGMT ---
Insurance Clinical information sent. Pending continued stay approval at this time. Auth#[id number] VERONICA Bolanos, POWER HOUSE CONTROL ROOM OPERATOR
--- NOTE | 2018-08-23 13:59 | CASEMGMT ---
Plan of care meeting held. Resident present as well as resident family. No discharge date set at this time. Resident pending insurance approval at this time. Resident aware that continued stay approval is not guaranteed. Resident to continue with further care and treatment on the Transitional Care Unit at this time. Resident plans to discharge to home with spouse at time of discharge. Support given. Will continue to follow. VERONICA Bolanos, CHICKEN HANDLER
--- NOTE | 2018-08-23 14:42 | CHAPLAIN ---
Type of Pastoral Visit ___ Initial Visit _x__ Follow-up Visit ___ On-call Visit ___ General Patient Visit ___ Spiritual Assessment ___ Family Conference ___ Bereavement ___ Rapid Response ___ Code Blue ___ Other (describe below) Pastoral Care Referral From _x__ Patient ___ Family ___ Nurse ___ Physician ___ Barytes Grinder ___ Administrative Job Titles ___ Other (describe below) Sacrament/Intervention _x__ Active listening ___ Anointing ___ Episcopalian ___ Bereavement ___ Communion ___ Zenaida exploration ___ ___ Life review ___ Prayer ___ Reconciliation ___ Sacrament of Sick _x__ Supportive presence ___ Wedding ___ Other (describe below) Pastoral Comments patient was seen during stay in hospital
[2018-08-23 16:00] VITALS: BP 115/76; PULSE 76; RESP 16; TEMP 36.9; O2SAT 96
[2018-08-23] MEDS: MELATONIN 10 MG TABLET PO (20:07)
[2018-08-24] MEDS: Acetaminophen 500 MG Tablet 1000 MG PO ×2 (01:17→21:54)
[2018-08-24] MEDS: Enoxaparin 40 MG/0.4 ML Syringe SC (06:34)
[2018-08-24] MEDS: Carbidopa/Levodopa 25/100 Tablet PO ×3 (06:35→21:54)
--- NOTE | 2018-08-24 10:59 | CASEMGMT ---
Insurance Continued stay approved with next update due on 08/29/18. Auth#[id number] VERONICA Bolanos, CHAIN TESTING MACHINE OPERATOR
--- NOTE | 2018-08-24 13:42 | MDS.RN ---
Pain interview for andrés 08/26/18 completed.
--- NOTE | 2018-08-24 13:54 | EKG12_ITS ---
Test Reason : CP Blood Pressure : / mmHG Vent. Rate : 063 BPM Atrial Rate : 063 BPM P-R Int : 176 ms QRS Dur : 146 ms QT Int : 396 ms P-R-T Axes : 020 020 021 degrees QTc Int : 405 ms Sinus rhythm with Blocked Premature atrial complexes Right bundle branch block Abnormal ECG When compared with ECG of 17-AUG-2018 08:03, Premature atrial complexes are now Present Questionable change in QRS axis QT has shortened Confirmed by CHEIKH WHITLOCK, ESSENCE ([id number]), mapping editor GINO JOSEPH ([id number]) on 08/29/2018 2:24:41 PM Referred By: Get Lin Confirmed By:ESSENCE SALAMANCA MD
--- NOTE | 2018-08-24 14:25 | RAD_ITS ---
STUDY: X-RAY CHEST REASON FOR EXAM: Male, 78 years old. Chest pain TECHNIQUE: Frontal and lateral views of the chest were obtained. COMPARISON: August 08, 2018 FINDINGS: The lungs are hyperinflated. There are increased markings in both lung bases, left slightly more than right. There is no demonstrated pleural abnormality. The cardiac silhouette is normal in size. The mediastinum and hilar regions are unremarkable. Normal visualized pulmonary arteries. There is atherosclerotic calcification of the thoracic aorta. There are diffuse degenerative changes of the visualized spine. The visualized ribs, clavicles, and shoulders are unremarkable. There is no demonstrated abnormality of the visualized upper abdomen. RAD/Chest PA and Lateral IMPRESSION: Minimal bibasilar opacities likely represent atelectasis. Developing consolidation cannot be completely excluded in the left lung base. There is no evidence of pleural effusion. There is stable COPD. Electronically Signed: Ernestina Erickson MD at 20:03 EST Tel Direct: [phone], Service support ,
--- NOTE | 2018-08-24 14:51 | NURSING ---
Addendum entered by Roro Pina 08/24/18 17:33: after pt received flexeril, pt rested, denies chest pain or tightness. resting in bed eating supper. Original Note: pt c/o rib tightness discomfort radiating to rt lateral side at 1400, stat EKG done. showed SR w/PAC's & RBBB. Dr Lin updated, vitals stable. c/o hard to get my breath sat 97% on RA. oxygen applied. Lungs diminished in bases. new order for chest xray & give flexeril. girlfriend at bedside.
[2018-08-24 16:00] VITALS: BP 130/72; PULSE 62; RESP 20; TEMP 36.6; O2SAT 98
[2018-08-24 21:10] VITALS: O2SAT 99
[2018-08-24] MEDS: MELATONIN 10 MG TABLET PO (21:54)
[2018-08-25] MEDS: Acetaminophen 500 MG Tablet 1000 MG PO ×2 (05:34→19:35)
[2018-08-25] MEDS: Enoxaparin 40 MG/0.4 ML Syringe SC (05:35)
[2018-08-25] MEDS: Carbidopa/Levodopa 25/100 Tablet PO ×3 (05:35→20:54)
[2018-08-25 08:58] VITALS: PULSE 70; O2SAT 93
[2018-08-25 16:00] VITALS: BP 151/93; PULSE 85; RESP 20; TEMP 36.7; O2SAT 97
[2018-08-25] MEDS: Senna/Docusate Sodium 1 Tablet 2 TABLET PO (19:30)
[2018-08-25] MEDS: Menthol/Lanolin/Calamine/Znox 113 GM Tube 1 APPLIC TOPICAL (20:52)
[2018-08-25] MEDS: MELATONIN 10 MG TABLET PO (20:53)
[2018-08-26] MEDS: Senna/Docusate Sodium 1 Tablet 2 TABLET PO ×2 (04:33→15:56)
[2018-08-26] MEDS: Menthol/Lanolin/Calamine/Znox 113 GM Tube 1 APPLIC TOPICAL ×4 (04:33→20:56)
[2018-08-26] MEDS: Enoxaparin 40 MG/0.4 ML Syringe SC (04:34)
[2018-08-26] MEDS: Carbidopa/Levodopa 25/100 Tablet PO ×3 (04:34→20:48)
[2018-08-26] MEDS: Acetaminophen 500 MG Tablet 1000 MG PO ×2 (12:09→20:43)
[2018-08-26 15:40] VITALS: BP 115/64; PULSE 89; RESP 18; TEMP 35.6; O2SAT 96
[2018-08-26] MEDS: MELATONIN 10 MG TABLET PO (20:48)
[2018-08-27] MEDS: Carbidopa/Levodopa 25/100 Tablet PO ×3 (05:40→21:14)
[2018-08-27] MEDS: Enoxaparin 40 MG/0.4 ML Syringe SC (05:42)
[2018-08-27] MEDS: Menthol/Lanolin/Calamine/Znox 113 GM Tube 1 APPLIC TOPICAL ×4 (05:45→21:13)
[2018-08-27 07:20] LABS: Absolute Lymphocyte Count 0.86 X10^3/ul (0.83-4.51); Absolute Neutrophil Count 2.9 X10^3/uL (2.0-7.7); Basophil# 0.07 X10^3/uL; Basophil% 1.5 % (0-1); Eosinophil# 0.24 X10^3/uL; Eosinophils% 5.3 % (0-5); Hematocrit 42.8 % (40-54); Hemoglobin 14.6 g/dl (13.0-16.5); Lymphocyte # 0.86 X10^3/ul (4.0); Lymphocyte % 18.9 % (19-41); Mean Corp Hgb Conc 34.1 g/gl (32-36); Mean Corpuscular Hgb 31.6 pg (27.0-32.0); Mean Corpuscular Volume 92.6 fL (80-94); Mean Platelet Vol. 9.4 fl (6.2-12.0); Monocyte# 0.45 X10^3/uL; Monocyte% 9.9 % (0-10); Neutrophil # 2.91 X10^3/uL (2.7-7.7); Neutrophil % 64.2 % (47-70); Platelet Count 201 K/mm3 (150-450); RBC Distribution Width CV 12.6 % (11.6-14.6); RBC Distribution Width SD 41.8 fl (35.1-43.9); Red Blood Count 4.62 M/mm3 (4.6-6.2); White Blood Count 4.5 K/mm3 (4.4-11.0)
[2018-08-27 07:25] LABS: POSITIVE COUNT NO; POSITIVE DIFFERENTIAL NO; POSITIVE MORPHOLOGY NO
[2018-08-27 07:41] LABS: Anion Gap 12 (5-15); BUN 17 mg/dL (7-18); BUN/Creat Ratio 21.3 RATIO (10-20); Calcium,Total 9.2 mg/dL (8.5-10.1); Chloride 99 mmol/L (98-107); EST Glomerular Filtration Rate 100 mL/min (>60); Est Glom Filt Rate - Afr Amer 121 mL/min (>60); Estimated Creatinine Clearance 71.15 ml/min; Glucose 91 mg/dL (74-106); Potassium 4.1 mmol/L (3.5-5.1); Sodium Level 133 mmol/L (136-145)
[2018-08-27] MEDS: Tuberculin,Purif.prot.deriv. 50 TU/ML Vial 5 ML ID (13:34)
[2018-08-27 16:00] VITALS: BP 133/79; PULSE 74; RESP 18; TEMP 36.9; O2SAT 98
[2018-08-27] MEDS: Senna/Docusate Sodium 1 Tablet 2 TABLET PO (17:49)
[2018-08-27] MEDS: MELATONIN 10 MG TABLET PO (21:14)
[2018-08-28] MEDS: Acetaminophen 500 MG Tablet 1000 MG PO (02:53)
[2018-08-28] MEDS: Senna/Docusate Sodium 1 Tablet 2 TABLET PO (04:51)
[2018-08-28] MEDS: Enoxaparin 40 MG/0.4 ML Syringe SC (04:51)
[2018-08-28] MEDS: Carbidopa/Levodopa 25/100 Tablet PO ×3 (04:52→21:00)
[2018-08-28] MEDS: Menthol/Lanolin/Calamine/Znox 113 GM Tube 1 APPLIC TOPICAL ×4 (04:55→21:00)
[2018-08-28 15:49] VITALS: BP 108/66; PULSE 75; RESP 18; TEMP 35.9; O2SAT 97
[2018-08-28] MEDS: MELATONIN 10 MG TABLET PO (21:00)
[2018-08-29] MEDS: Acetaminophen 500 MG Tablet 1000 MG PO (02:28)
[2018-08-29] MEDS: Enoxaparin 40 MG/0.4 ML Syringe SC (04:40)
[2018-08-29] MEDS: Menthol/Lanolin/Calamine/Znox 113 GM Tube 1 APPLIC TOPICAL ×4 (04:40→19:54)
[2018-08-29] MEDS: Carbidopa/Levodopa 25/100 Tablet PO ×3 (04:40→19:53)
--- NOTE | 2018-08-29 10:48 | CASEMGMT ---
Insurance Clinical information sent. Pending continued stay approval at this time. Auth#[id number] VERONICA Bolanos, SECOND LANGUAGE TUTOR
[2018-08-29 15:24] VITALS: BP 160/81; PULSE 73; RESP 20; TEMP 36.8; O2SAT 97
[2018-08-29 17:42] VITALS: BP 125/76
[2018-08-29] MEDS: MELATONIN 10 MG TABLET PO (19:53)
[2018-08-30] MEDS: Acetaminophen 500 MG Tablet 1000 MG PO (02:24)
[2018-08-30] MEDS: Carbidopa/Levodopa 25/100 Tablet PO ×3 (05:24→20:57)
[2018-08-30] MEDS: Enoxaparin 40 MG/0.4 ML Syringe SC (05:24)
[2018-08-30] MEDS: Menthol/Lanolin/Calamine/Znox 113 GM Tube 1 APPLIC TOPICAL ×3 (05:25→21:00)
--- NOTE | 2018-08-30 10:44 | CASEMGMT ---
Insurance Continued stay approved with next update due on 09/01/18. Auth#[id number] VERONICA Bolanos, TELETYPEWRITER OPERATOR
[2018-08-30 16:00] VITALS: BP 122/64; PULSE 76; RESP 18; TEMP 36.4; O2SAT 94
[2018-08-30] MEDS: Senna/Docusate Sodium 1 Tablet 2 TABLET PO (17:35)
[2018-08-30] MEDS: MELATONIN 10 MG TABLET PO (20:57)
[2018-08-31] MEDS: Carbidopa/Levodopa 25/100 Tablet PO ×3 (05:12→20:37)
[2018-08-31] MEDS: Menthol/Lanolin/Calamine/Znox 113 GM Tube 1 APPLIC TOPICAL ×2 (05:13→20:35)
[2018-08-31] MEDS: Enoxaparin 40 MG/0.4 ML Syringe SC (05:13)
[2018-08-31 16:00] VITALS: BP 128/83; PULSE 73; RESP 16; TEMP 35.9; O2SAT 97
[2018-08-31] MEDS: Senna/Docusate Sodium 1 Tablet 2 TABLET PO (16:56)
[2018-08-31] MEDS: MELATONIN 10 MG TABLET PO (20:37)
[2018-09-01] MEDS: Carbidopa/Levodopa 25/100 Tablet PO ×3 (05:45→22:16)
[2018-09-01] MEDS: Senna/Docusate Sodium 1 Tablet 2 TABLET PO ×2 (05:45→16:33)
[2018-09-01] MEDS: Enoxaparin 40 MG/0.4 ML Syringe SC (05:45)
[2018-09-01] MEDS: Menthol/Lanolin/Calamine/Znox 113 GM Tube 1 APPLIC TOPICAL ×2 (05:45→22:17)
--- NOTE | 2018-09-01 09:45 | MDS.RN ---
Information for the mds was obtained from review of the clinical record, interview of resident, staff, and direct observation of resident's care.
--- NOTE | 2018-09-01 11:57 | CASEMGMT ---
Insurance Clinical information sent. Pending continued stay approval at this time. Auth#[id number] VERONICA Bolanos, CATTLE TRADER
[2018-09-01 15:04] VITALS: BP 130/72; PULSE 74; RESP 16; TEMP 36.7; O2SAT 97
[2018-09-01] MEDS: MELATONIN 10 MG TABLET PO (22:16)
[2018-09-02] MEDS: Carbidopa/Levodopa 25/100 Tablet PO ×3 (06:49→19:57)
[2018-09-02] MEDS: Enoxaparin 40 MG/0.4 ML Syringe SC (06:49)
[2018-09-02] MEDS: Menthol/Lanolin/Calamine/Znox 113 GM Tube 1 APPLIC TOPICAL ×2 (06:49→19:58)
--- NOTE | 2018-09-02 08:51 | CASEMGMT ---
Insurance Continued stay approved with next update dueon 09/06/18. Auth#[id number] VERONICA Bolanos, MEDICAL DETAIL REPRESENTATIVE
[2018-09-02 15:34] VITALS: BP 107/60; PULSE 68; RESP 18; TEMP 35.9; O2SAT 94
[2018-09-02] MEDS: MELATONIN 10 MG TABLET PO (19:57)
[2018-09-02] MEDS: Acetaminophen 500 MG Tablet 1000 MG PO (20:03)
[2018-09-03] MEDS: Carbidopa/Levodopa 25/100 Tablet PO ×3 (07:18→21:51)
[2018-09-03] MEDS: Enoxaparin 40 MG/0.4 ML Syringe SC (07:20)
[2018-09-03] MEDS: Menthol/Lanolin/Calamine/Znox 113 GM Tube 1 APPLIC TOPICAL ×2 (07:23→21:51)
[2018-09-03 08:23] LABS: Absolute Lymphocyte Count 1.14 X10^3/ul (0.83-4.51); Absolute Neutrophil Count 2.5 X10^3/uL (2.0-7.7); Basophil# 0.05 X10^3/uL; Basophil% 1.2 % (0-1); Eosinophil# 0.19 X10^3/uL; Eosinophils% 4.5 % (0-5); Hematocrit 41.5 % (40-54); Hemoglobin 14.3 g/dl (13.0-16.5); Lymphocyte # 1.14 X10^3/ul (4.0); Lymphocyte % 27.1 % (19-41); Mean Corp Hgb Conc 34.5 g/gl (32-36); Mean Corpuscular Hgb 31.3 pg (27.0-32.0); Mean Corpuscular Volume 90.8 fL (80-94); Mean Platelet Vol. 9.1 fl (6.2-12.0); Monocyte# 0.27 X10^3/uL; Monocyte% 6.4 % (0-10); Neutrophil # 2.53 X10^3/uL (2.7-7.7); Neutrophil % 60.3 % (47-70); Platelet Count 224 K/mm3 (150-450); RBC Distribution Width SD 42.8 fl (35.1-43.9); Red Blood Count 4.57 M/mm3 (4.6-6.2); White Blood Count 4.2 K/mm3 (4.4-11.0)
[2018-09-03 08:26] LABS: POSITIVE COUNT NO; POSITIVE DIFFERENTIAL NO; POSITIVE MORPHOLOGY NO
[2018-09-03 09:19] LABS: Anion Gap 9 (5-15); BUN 16 mg/dL (7-18); BUN/Creat Ratio 18.1 RATIO (10-20); Calcium,Total 9.1 mg/dL (8.5-10.1); Chloride 100 mmol/L (98-107); Creatinine, Serum 0.89 mg/dL (0.70-1.30); EST Glomerular Filtration Rate 88 mL/min (>60); Est Glom Filt Rate - Afr Amer 107 mL/min (>60); Estimated Creatinine Clearance 63.95 ml/min; Glucose 114 mg/dL (74-106); Potassium 3.9 mmol/L (3.5-5.1); Sodium Level 134 mmol/L (136-145)
[2018-09-03 16:00] VITALS: BP 120/69; PULSE 74; RESP 18; TEMP 36.3; O2SAT 95
[2018-09-03] MEDS: MELATONIN 10 MG TABLET PO (21:51)
[2018-09-04] MEDS: Polyethylene Glycol 3350 17 GM PACKET PO (05:50)
[2018-09-04] MEDS: Menthol/Lanolin/Calamine/Znox 113 GM Tube 1 APPLIC TOPICAL ×2 (05:50→20:11)
[2018-09-04] MEDS: Enoxaparin 40 MG/0.4 ML Syringe SC (05:50)
[2018-09-04] MEDS: Senna/Docusate Sodium 1 Tablet 2 TABLET PO ×2 (05:51→17:47)
[2018-09-04] MEDS: Carbidopa/Levodopa 25/100 Tablet PO ×3 (05:51→21:27)
[2018-09-04 16:00] VITALS: BP 121/72; PULSE 68; RESP 16; TEMP 36.5; O2SAT 96
[2018-09-04 20:10] VITALS: PULSE 91; O2SAT 98
[2018-09-04] MEDS: MELATONIN 10 MG TABLET PO (21:27)
[2018-09-05] MEDS: Menthol/Lanolin/Calamine/Znox 113 GM Tube 1 APPLIC TOPICAL ×2 (06:16→21:13)
[2018-09-05] MEDS: Enoxaparin 40 MG/0.4 ML Syringe SC (06:16)
[2018-09-05] MEDS: Polyethylene Glycol 3350 17 GM PACKET PO (06:17)
[2018-09-05] MEDS: Senna/Docusate Sodium 1 Tablet 2 TABLET PO (06:17)
[2018-09-05] MEDS: Carbidopa/Levodopa 25/100 Tablet PO ×3 (06:18→21:11)
[2018-09-05] MEDS: Acetaminophen 500 MG Tablet 1000 MG PO (06:22)
[2018-09-05 15:53] VITALS: BP 112/63; PULSE 70; RESP 16; TEMP 36.4; O2SAT 96
[2018-09-05] MEDS: MELATONIN 10 MG TABLET PO (21:11)
[2018-09-06] MEDS: Carbidopa/Levodopa 25/100 Tablet PO ×3 (06:20→21:52)
[2018-09-06] MEDS: Enoxaparin 40 MG/0.4 ML Syringe SC (06:21)
[2018-09-06] MEDS: Polyethylene Glycol 3350 17 GM PACKET PO (06:21)
[2018-09-06] MEDS: Senna/Docusate Sodium 1 Tablet 2 TABLET PO ×2 (06:21→16:34)
[2018-09-06] MEDS: Menthol/Lanolin/Calamine/Znox 113 GM Tube 1 APPLIC TOPICAL ×2 (06:23→21:53)
--- NOTE | 2018-09-06 12:42 | CASEMGMT ---
Insurance Continued stay review submitted. Will await continued stay determination. Auth# [id number] VERONICA Villasenor
[2018-09-06 16:00] VITALS: BP 120/69; PULSE 79; RESP 18; TEMP 36.4; O2SAT 95
[2018-09-06] MEDS: MELATONIN 10 MG TABLET PO (21:52)
[2018-09-07] MEDS: Enoxaparin 40 MG/0.4 ML Syringe SC (05:14)
[2018-09-07] MEDS: Carbidopa/Levodopa 25/100 Tablet PO ×3 (05:14→22:20)
[2018-09-07] MEDS: Menthol/Lanolin/Calamine/Znox 113 GM Tube 1 APPLIC TOPICAL ×2 (05:16→20:32)
--- NOTE | 2018-09-07 15:00 | CASEMGMT ---
Insurance/Social Work Continued stay denied with last covered day 09/09/18 and d/c 09/10/18. [facility] faxed. Auth # [id number] Therapy is recommending outpt PT and a wheeled walker. SANKET met with pt and friend Cathy in room and informed that insurance has denied continued stay. Pt and friend are agreeable to d/c home on Wednesday. Pt has needed DME - wheeled walker, cane, shower chair and grab bars in bathroom. Pt is agreeable to out pt PT but would prefer his dgt choose clinic used. With pt permission phone call to pt dgt Myra and informed of insurance decision and d/c plan. Myra is agreeable to d/c home and plans to stay with pt and care for him as needed and provide transportation. [facility]. Referral made to [facility]. Will fax order when received. Information given to pt on life alert system. Plan: D/C home with daughter providing care on 09/10/18. Outpt PT VERONICA Villasenor
[2018-09-07 16:00] VITALS: BP 110/64; PULSE 80; RESP 20; TEMP 36.9; O2SAT 95
[2018-09-07] MEDS: Senna/Docusate Sodium 1 Tablet 2 TABLET PO (16:32)
--- NOTE | 2018-09-07 18:13 | DCINST_ITS ---
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) You will use the following diet at home:: No restrictions, Regular Your food should be the consistency of: Regular Your liquids should be the consistency of: Regular/Thin Discharge Activity: Return to Normal Activity, May Shower, Use Walker Weight Bearing Status: Weight bearing as tolerated Call your doctor if you observe: Fever of 101 or Higher, Inability to urinate, Inability to have a bowel movement, Shortness of breath, Chest pain, Uncontrolled pain Allergies/Adverse Reactions: Allergies No Known Allergies Allergy (Verified 08/08/18 15:13) Medications to take at Discharge Carbidopa/Levodopa 25/100 [Sinemet 25/100] 2 tab PO TID 08/08/18 Menthol [Biofreeze] 1 applicatio TP PRN PRN 08/08/18 Cyclobenzaprine [Flexeril] 5 mg PO BID PRN #30 tablet 09/07/18 Melatonin 10 mg PO QHS #30 tablet 09/07/18 Menthol/Lanolin/Calamine/Znox [Calmoseptine Ointment] 1 applic TOPICAL 0600,2200 tube 09/07/18 Polyethylene Glycol 3350 [Miralax] 17 gm PO DAILY #30 packet 09/07/18 The following prescriptions were given: Melatonin 10 mg PO QHS #30 tablet Polyethylene Glycol 3350 [Miralax] 17 gm PO DAILY #30 packet Cyclobenzaprine [Flexeril] 5 mg PO BID PRN #30 tablet PRN Reason: muscle strain, sprain Primary Care Physician: Get Lin Chi, MD [Primary Care Provider] - Please follow up with your Primary Care Physician in: 1 week. Test Results: Test results from this visit will be discussed in further detail at your follow- up appointment, if applicable. Please Follow Up With: [facility] When: They will call you to set up an appointment Proposed Discharge Date: 09/10/18
--- NOTE | 2018-09-07 18:13 | PCM.DC.SUM ---
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 Developing consolidation cannot be completely excluded in the left lung base. There is no evidence of pleural effusion. There is stable COPD. Electronically Signed: Ernestina Erickson MD at 20:03 EST Tel Direct: [phone], Service support , Operations: None Procedures: None Summary of Care Provided: The patient is a 78 year old Male with below past medical history significant for Parkinson's Disease, hospitalized for weakness, secondary to Guillain [place] syndrome treated with IVIG, admitted to TCU with debility, here for rehabilitation, strengthening, prior to disposition determination. Discharge home with daughter, outpatient PT. 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) - Physical Exam Vital Signs Temp Pulse Resp BP Pulse Ox 98.5 F 80 20 H 110/64 95 09/07/18 16:00 09/07/18 16:00 09/07/18 16:00 09/07/18 16:00 09/07/18 16:00 Oxygen Flow Rate (L/min) 2 Oxygen Delivery Method Room Air Weight: 77.224 kg Body Mass Index (BMI) 25.4 Intake and Output for Last 24 Hours 09/05/18 09/06/18 09/07/18 23:59 23:59 23:59 Intake Total 720 / 720 780 / 780 640 / 640 Balance 720 / 720 780 / 780 640 / 640 Discharge Diet: No Restrictions Discharge Activity: Return to Normal Activity, May Shower, Use Walker Weight Bearing Status: Weight bearing as tolerated Call your doctor if you observe: Fever of 101 or Higher, Inability to urinate, Inability to have a bowel movement, Shortness of breath, Chest pain, Uncontrolled pain Home Medications: Medications to take at Discharge Carbidopa/Levodopa 25/100 [Sinemet 25/100] 2 tab PO TID 08/08/18 Menthol [Biofreeze] 1 applicatio TP PRN PRN 08/08/18 Cyclobenzaprine [Flexeril] 5 mg PO BID PRN #30 tablet 09/07/18 Melatonin 10 mg PO QHS #30 tablet 09/07/18 Menthol/Lanolin/Calamine/Znox [Calmoseptine Ointment] 1 applic TOPICAL 0600,2200 tube 09/07/18 Polyethylene Glycol 3350 [Miralax] 17 gm PO DAILY #30 packet 09/07/18 Following Prescrptions Were Given to Patient: Melatonin 10 mg PO QHS #30 tablet Polyethylene Glycol 3350 [Miralax] 17 gm PO DAILY #30 packet Cyclobenzaprine [Flexeril] 5 mg PO BID PRN #30 tablet PRN Reason: muscle strain, sprain Primary Care Physician: Get Lin Chi, MD [Primary Care Provider] - Please follow up with your Primary Care Physician in: 1 week. Please Follow Up With: [facility] When: They will call you to set up an appointment Disposition: Home Minutes spent on discharge:: 30 Patient Condition:: Stable Medical Necessity - Tobacco Use Smoking Status: Never smoker Tobacco Use: Non-smoker Meaningful Use Info Meaningful Use Diagnoses (Choose all that apply): None applicable
[2018-09-07] MEDS: MELATONIN 10 MG TABLET PO (22:20)
[2018-09-08] MEDS: Senna/Docusate Sodium 1 Tablet 2 TABLET PO ×2 (05:24→16:38)
[2018-09-08] MEDS: Enoxaparin 40 MG/0.4 ML Syringe SC (05:24)
[2018-09-08] MEDS: Carbidopa/Levodopa 25/100 Tablet PO ×3 (05:24→21:30)
[2018-09-08] MEDS: Menthol/Lanolin/Calamine/Znox 113 GM Tube 1 APPLIC TOPICAL ×2 (05:25→21:30)
--- NOTE | 2018-09-08 14:22 | MDS.RN ---
Pain interview for andrés 09/10/18 completed.
[2018-09-08 15:42] VITALS: BP 120/71; PULSE 66; RESP 14; TEMP 36.9; O2SAT 95
[2018-09-08] MEDS: MELATONIN 10 MG TABLET PO (21:30)
[2018-09-09] MEDS: Carbidopa/Levodopa 25/100 Tablet PO ×3 (05:17→21:20)
[2018-09-09] MEDS: Senna/Docusate Sodium 1 Tablet 2 TABLET PO (05:17)
[2018-09-09] MEDS: Enoxaparin 40 MG/0.4 ML Syringe SC (05:17)
[2018-09-09] MEDS: Menthol/Lanolin/Calamine/Znox 113 GM Tube 1 APPLIC TOPICAL ×2 (05:17→21:19)
--- NOTE | 2018-09-09 13:25 | CASEMGMT ---
Addendum entered by Olga Banuelos 09/09/18 13:39: Student SW notes reviewed. VERONICA Villasenor Original Note: Brief interview for mental status (BIMS) and mood (PHQ-9) completed on this day. BIMS score 15. PHQ-9 score 03/30. Coretta Salgado social work student
[2018-09-09 16:00] VITALS: BP 112/64; PULSE 66; RESP 20; TEMP 36.4; O2SAT 97
[2018-09-09] MEDS: MELATONIN 10 MG TABLET PO (21:19)
[2018-09-10] MEDS: Senna/Docusate Sodium 1 Tablet 2 TABLET PO (05:22)
[2018-09-10] MEDS: Enoxaparin 40 MG/0.4 ML Syringe SC (05:22)
[2018-09-10] MEDS: Menthol/Lanolin/Calamine/Znox 113 GM Tube 1 APPLIC TOPICAL (05:22)
[2018-09-10] MEDS: Carbidopa/Levodopa 25/100 Tablet PO (05:23)
[2018-09-10 05:39] VITALS: PULSE 65; O2SAT 96
[2018-09-10 10:06] VITALS: BP 138/77; PULSE 66; RESP 17; TEMP 36.2; O2SAT 95
== END 2018-09-10 10:09 | disposition home or self-care (01) | DRG 948 ==
PROVIDERS: Admitting Provider Family Medicine Geriatric Medicine; Family Provider Family Medicine Geriatric Medicine; PCP Family Medicine Geriatric Medicine; Referring Provider Family Medicine Geriatric Medicine; Visit Provider Family Medicine Geriatric Medicine
DX: R53.81 Other malaise (principal); G61.0 Guillain-Barre syndrome; G20 Parkinson's disease; M62.838 Other muscle spasm; R29.6 Repeated falls; M48.02 Spinal stenosis, cervical region
CPT/HCPCS: 36415; 71046; 80048; 85025; 92507; 92522; 92526; 92610; 93005; 97110; 97116; 97163; 97166; 97530; 97535; 97802

== ENCOUNTER → 2018-11-24 11:15 | Outpatient (CLI) | payer MEDICARE, SELFPAY ==
[2018-11-24 12:24] LABS: Absolute Lymphocyte Count 1.21 X10^3/ul (0.83-4.51); Absolute Neutrophil Count 2.2 X10^3/uL (2.0-7.7); Basophil# 0.05 X10^3/uL; Basophil% 1.2 % (0-1); Eosinophils% 4.9 % (0-5); Hematocrit 46.9 % (40-54); Hemoglobin 15.5 g/dl (13.0-16.5); Lymphocyte # 1.21 X10^3/ul (4.0); Lymphocyte % 29.6 % (19-41); Mean Corpuscular Hgb 31.1 pg (27.0-32.0); Mean Corpuscular Volume 94.2 fL (80-94); Mean Platelet Vol. 9.6 fl (6.2-12.0); Monocyte# 0.45 X10^3/uL; Neutrophil # 2.17 X10^3/uL (2.7-7.7); Neutrophil % 53.1 % (47-70); Platelet Count 230 K/mm3 (150-450); RBC Distribution Width CV 12.5 % (11.6-14.6); Red Blood Count 4.98 M/mm3 (4.6-6.2); White Blood Count 4.1 K/mm3 (4.4-11.0)
[2018-11-24 12:25] LABS: POSITIVE COUNT NO; POSITIVE DIFFERENTIAL NO
[2018-11-24 12:26] LABS: POSITIVE MORPHOLOGY NO
[2018-11-24 12:34] LABS: Vitamin D,25 Hydroxy 34.8 ng/mL (29.95-100.01)
[2018-11-24 13:00] LABS: AST(SGOT) 46 U/L (15-37); Alanine Aminotransfer ALT/SGPT 26 U/L (16-61); Albumin, Serum 4.2 g/dL (3.2-5.0); Alkaline Phosphatase 81 U/L (45-117); Anion Gap 11 (5-15); BUN 12 mg/dL (7-18); BUN/Creat Ratio 11.9 RATIO (10-20); Calcium,Total 9.2 mg/dL (8.5-10.1); Chloride 102 mmol/L (98-107); Creatinine, Serum 1.01 mg/dL (0.70-1.30); EST Glomerular Filtration Rate 76 mL/min (>60); Est Glom Filt Rate - Afr Amer 92 mL/min (>60); Globulin 4.1 g/dL (2.2-4.2); Glucose 98 mg/dL (74-106); Potassium 3.9 mmol/L (3.5-5.1); Protein, Total 8.3 g/dL (6.4-8.2); Sodium Level 139 mmol/L (136-145); Thyroid Stim Hormone (TSH) 2.77 uIU/mL (0.358-3.74)
== END ==
PROVIDERS: Family Provider Family Medicine Geriatric Medicine; PCP Family Medicine Geriatric Medicine; Visit Provider Family Medicine Geriatric Medicine
DX: E55.9 Vitamin D deficiency, unspecified (principal); R53.83 Other fatigue
CPT/HCPCS: 36415; 80053; 82306; 84443; 85025

== ENCOUNTER 2021-03-10 20:32 | Emergency (ER) | payer MEDICARE, SELFPAY ==
[2021-03-10 20:33] VITALS: BP 120/55; PULSE 67; RESP 15; TEMP 36.4; O2SAT 98; BMI 28.1
--- NOTE | 2021-03-10 21:00 | EDS_ITS ---
HPI History of Present Illness Chief Complaint: Back Informant: patient, spouse/S.O. and family Onset/Context/Timing Onset: Weeks Context: Onset with activity and Gradual Onset Injury: lifting, twisting and bending Timing: Continuous Quality: Dull and Aching Location: Lumbar Current Severity: Mild Maximum Severity: Mild Worsened by: improves with Movement Relieved by: Remaining Still Associated Symptoms Associated Symptoms: Negative for Numbness, Tingling, Radiation to Right Leg, Radiation to Left Leg, Fever, Abdominal Pain, Dysuria, Unable to Ambulate, Unab le to Transfer, Urinary Retention, Urinary Incontinence, Constipation and Fecal Incontinence Narrative Narrative: 80-year-old male history of Parkinson's disease and prior DVT on Eliquis. Patient is very active for his age. He was cutting and stacking wood 2 weeks ago. He said the continuous up and down movement of stacking wood and splitting wood as cause of low back pain. He denies any falls or trauma. He denies any bowel or bladder incontinence or retention. He denies any dysuria or fever. He denies any radiation to his legs or leg weakness. He is never had back surgery. Prior similar symptoms: Yes Recent Illness/Hospitalization: No PFSH PFSH Home Medications Biofreeze (menthol) 1 applicatio TP PRN PRN 08/08/18 [History Last Taken 08/07/18] carbidopa-levodopa 2 tab PO TID 08/08/18 [History Last Taken 08/08/18] Calmoseptine 1 applic TOPICAL 0600,2200 tube 09/07/18 [Rx Last Taken Unknown] cyclobenzaprine 5 mg PO BID PRN #30 tablet 09/07/18 [Rx Last Taken Unknown] melatonin 10 mg PO QHS #30 tablet 09/07/18 [Rx Last Taken Unknown] polyethylene glycol 3350 17 g PO DAILY #30 packet 09/07/18 [Rx Last Taken Unknown] apixaban [Eliquis] 5 mg BID 03/10/21 [History Last Taken Unknown] donepezil 5 mg DAILY 03/10/21 [History Last Taken Unknown] hydrocodone-acetaminophen 1 tab PO Q6H PRN 7 Days #20 tab 03/10/21 [Rx Last Taken Unknown] Allergy/AdvReac Type Severity Reaction Status Date / Time No Known Allergies Allergy Verified 03/10/21 20:35 Social History Smoking Status: Never smoker ROS ROS ED ROS Narrative He denies any recent illness. Review of Systems ROS Unobtainable: Denies due to encephalopathy Constitutional Constitutional ED: Denies chills or fever(s) Eyes Eyes: Denies change in vision ENT ENT ED: Denies ear pain Cardiovascular Cardiovascular: Denies chest pain Respiratory/Chest Respiratory/Chest: Denies dyspnea Gastrointestinal Gastrointestinal: Denies abdominal pain, diarrhea, nausea or vomiting Genitourinary Genitourinary ED: Denies dysuria Musculoskeletal Musculoskeletal: Reports back pain; Denies myalgias Integumentary Denies rash Neurologic Neurologic: Denies headache(s) Psychiatric Psychiatric: Denies depression Endocrine Endocrinology: Denies polyuria Hematologic/Lymphatic Hematologic/Lymphatic: Denies easy bruising Allergic/Immunologic Allergic/Immunologic ED: Denies urticaria EXAM Physical Exam Narrative Exam Narrative: Well-appearing older male accompanied by family. Vital signs stable afebrile. No distress. HEENT neck, heart, lung and abdominal exam unremarkable. Abdomen is completely benign no peritoneal signs. No pulsatile mass. Moving all 4 extremities. Neurologically is awake alert with no focal motor or sensory deficits. He does have tremors consistent with Parkinson's disease. Back exam cervical and thoracic spine are nontender. He is tenderness at the lumbar spine at the level of the iliac crest and below. There is no ecchymosis or bruising. No redness or warmth. Also paralumbar soft tissue tenderness. Both lower extremities are neurovascularly intact. Negative straight leg raise. No cauda equina or saddle anesthesia. 5-5 motor strength normal sensation. Const Vital Signs: 03/10/21 20:33 Temperature 97.5 F L Temperature Source Temporal Pulse Rate 67 Respiratory Rate 15 Blood Pressure 120/55 L Blood Pressure Mean 76 Pulse Ox 98 Oxygen Delivery Method Room Air Positive well nourished and well developed General Appearance ED: well developed; Negative for pallor HEENT Reports moist mucous membranes Negative for trauma or tenderness Eyes PERRL and EOMs intact bilaterally Neck no lymphadenopathy, supple and no JVD General: Negative for tenderness Resp normal respiratory effort and clear to auscultation bilaterally Effort and Inspection: pain with movement Cardio regular rate, regular rhythm, S1 normal heart sound, S2 normal heart sound and no murmurs GI normal to inspection, nondistended, normoactive bowel sounds, soft to palpation, non-tender, non-distended and no masses Inspection: Negative for abdominal distention Auscultation: Negative for hyperactive bowel sounds Palpation: Negative for tender, guarding or rebound tenderness present Back/Spine Back/Spine Narrative: Patient with mild lower lumbar tenderness and paralumbar soft tissue tenderness. No signs of trauma. No bruising. No redness or warmth. General Back: Negative for CVA tenderness Cervical Spine: Negative for paracervical muscle tenderness Thoracic Spine / Upper Back: paraspinal muscle tenderness Lumbar Spine / Lower Back: straight leg raise negative bilaterally; Negative for straight leg raise positive right or straight leg raise positive - left Extremity normal to inspection General Extremety ED: Negative for edema or tenderness General Extremity: Negative for edema Psych mental status grossly normal Skin no rashes or lesions noted and no wounds General Skin Exam: Negative for jaundice or pallor MDM MDM MDM Narrative Medical decision making narrative: Older male with low back pain from stacking and cutting wood. No falls or trauma. I do not think imaging is necessary. He is already on Eliquis and due to his age and optic anti-inflammatories are of benefit and could be potentially harmful. I think this is more of a arthritic pain than a muscle spasm pain I do not feel that muscle relaxants would be of benefit. Patient is also on the blood thinner Eliquis. He will be given a subcu injection of morphine for his pain. P.o. Zofran here. Limited prescription for [place] for home. I did warn him in the family of risk of falls, constipation and nausea. Discharge Plan Triage Chief Complaint: Back ED Provider: Rob Carvajal Dx/Rx/DC Orders Clinical Impression: Musculoskeletal back pain Instructions: ED Back Pain (Acute or Chronic), ED Back Sprain/Strain Prescriptions: New hydrocodone-acetaminophen 5-325 mg tablet 1 tab PO Q6H PRN (Reason: pain) 7 Days Qty: 20 RF: 0 No Action carbidopa-levodopa 25MG-10 tablet 2 tab PO TID RF: 0 Biofreeze (menthol) 1 APPLIC gel 1 applicatio TP PRN PRN (Reason: Pain) RF: 0 Calmoseptine 1 APPLIC ointment 1 applic topical 0600,2200 RF: 0 melatonin 10 MG tablet 10 mg PO QHS Qty: 30 RF: 0 cyclobenzaprine 10 MG tablet 5 mg PO BID PRN (Reason: muscle strain, sprain) Qty: 30 RF: 0 polyethylene glycol 3350 17 GM powder in packet 17 g PO DAILY Qty: 30 RF: 0 donepezil 5 mg tablet 5 mg DAILY RF: 0 Eliquis 5 mg tablet 5 mg BID RF: 0 Primary Care Provider: Get Lin Chi Referrals: Get Lin Chi, MD [Primary Care Provider] - 3-5 Days if not improving Activity Restrictions/Additional Instructions: Ice knee to your lower back to help with the pain from arthritis and the spasm of the muscles. Ice is better for the arthritis. Heat is better for the muscles. Hot shower and warm massage. Limited [place] for pain. Be very careful that it does not cause you c onstipation. Plenty of fluids, fiber and stool softener as needed. Do not operate any machinery or drive when using the [place]. Be very careful on steps and be careful not to fall. Follow-up with your doctor if not improving. Return to the emergency department if severe back pain, fever, bowel or bladder incontinence or leg weakness. Disposition Disposition: Home, self care
[2021-03-10 21:02] VITALS: BP 120/58; PULSE 67; RESP 15; TEMP 36.4; O2SAT 98
[2021-03-10] MEDS: Ondansetron ODT 4 MG Tablet PO (21:08)
[2021-03-10] MEDS: morphine 10 MG/ML Syringe SC (21:09)
== END 2021-03-10 21:54 | disposition home or self-care (01) ==
LOC: ED 21:22
PROVIDERS: Emergency Provider Emergency Medicine; PCP Family Medicine Geriatric Medicine
DX: M54.5 Low back pain (principal); Z79.899 Other long term (current) drug therapy; Z79.01 Long term (current) use of anticoagulants; Z86.718 Personal history of other venous thrombosis and embolism
CPT/HCPCS: 96374; 99283

== ENCOUNTER 2022-04-03 22:55 | Emergency (ER) | payer MEDICARE, SELFPAY ==
[2022-04-03 22:56] VITALS: BP 170/92; PULSE 94; RESP 18; TEMP 36.4; O2SAT 95; BMI 28.3
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
[2022-04-03 23:43] LABS: Absolute Lymphocyte Count 0.81 X10^3/uL (0.83-4.51); Absolute Neutrophil Count 4.1 X10^3/uL (2.0-7.7); Basophil# 0.05 X10^3/uL; Basophil% 0.9 % (0-1); Eosinophil# 0.15 X10^3/uL; Eosinophils% 2.7 % (0-5); Hematocrit 46.5 % (40-54); Hemoglobin 15.3 g/dL (13.0-16.5); Lymphocyte # 0.81 X10^3/ul (0.83-4.51); Lymphocyte % 14.6 % (19-41); Mean Corp Hgb Conc 32.9 g/dL (32-36); Mean Corpuscular Hgb 31.4 pg (27.0-32.0); Mean Corpuscular Volume 95.3 fL (80-94); Mean Platelet Vol. 9.2 fl (6.2-12.0); Monocyte# 0.42 X10^3/uL; Monocyte% 7.6 % (0-10); NRBC Flagged by Analyzer 0 % (0-5); Neutrophil # 4.07 X10^3/uL (2.7-7.7); Neutrophil % 73.7 % (47-70); Platelet Count 218 K/mm3 (150-450); RBC Distribution Width CV 12.3 % (11.6-14.6); RBC Distribution Width SD 42.8 fl (35.1-43.9); Red Blood Count 4.88 M/mm3 (4.6-6.2); White Blood Count 5.5 K/mm3 (4.4-11.0)
[2022-04-04 00:01] LABS: Anion Gap 5 (5-15); BUN 21 mg/dL (7-18); Calcium,Total 9.6 mg/dL (8.5-10.1); Chloride 108 mmol/L (98-107); Creatinine, Serum 1.31 mg/dL (0.70-1.30); EST Glomerular Filtration Rate 56 mL/min (>60); Est Glom Filt Rate - Afr Amer 67 mL/min (>60); Estimated Creatinine Clearance 41.35 ml/min; Glucose 116 mg/dL (74-106); Potassium 3.9 mmol/L (3.5-5.1); Sodium Level 142 mmol/L (136-145)
[2022-04-04 00:49] LABS: International Normalized Ratio 1.1; Prothrombin Time (Protime)PT. 13.8 SECONDS (11.7-14.9)
[2022-04-04 00:50] LABS: Partial Thromboplast Time 29.6 Seconds (24.1-36.2)
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
[2022-04-04 01:45] VITALS: BP 158/83; PULSE 100; RESP 18; O2SAT 96
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
== END 2022-04-04 01:46 | disposition home or self-care (01) ==
PROVIDERS: Emergency Provider Emergency Medicine; PCP Internal Medicine; Visit Provider Emergency Medicine
DX: S30.811A Abrasion of abdominal wall, initial encounter (principal); G20 Parkinson's disease; S60.311A Abrasion of right thumb, initial encounter; S60.312A Abrasion of left thumb, initial encounter; S50.812A Abrasion of left forearm, initial encounter; S80.811A Abrasion, right lower leg, initial encounter; S80.812A Abrasion, left lower leg, initial encounter; V43.52XA Car driver injured in collision with other type car in traffic accident, initial encounter; Y93.89 Activity, other specified; Z79.01 Long term (current) use of anticoagulants
CPT/HCPCS: 70450; 71046; 72125; 74177; 80048; 85025; 85610; 85730; 96360; 96361; 99284; J7040; Q9967